=== PATIENT | female | born 1950 | race Caucasian/White ===

== ENCOUNTER 2022-07-24 11:40 | Emergency (ER) | payer MEDICARE, SELFPAY ==
[2022-07-24 12:03] VITALS: BP 151/82; PULSE 65; RESP 18; TEMP 36.6; O2SAT 99
--- NOTE | 2022-07-24 12:21 | ED.URI ---
HPI - URI/Sore Throat General Chief Complaint: Upper Respiratory Infection Stated Complaint: throat irritation Time Seen by Provider: 07/24/22 12:05 Source: patient Mode of arrival: ambulatory Limitations: no limitations History of Present Illness HPI Narrative: Sara is a 72-year-old female patient presenting to the clinic today with complaints of sore throat x1 week. She reports that her throat feels irritated and she is constantly feeling itchiness scratch in the back of her throat. She denies any known fever chills. MD elicited complaint: sore throat and nasal congestion Related Data Home Medications Medication Instructions Recorded Confirmed ezetimibe 10 mg tablet 10 mg DIRECTED 07/24/22 07/24/22 furosemide 20 mg tablet 20 mg DIRECTED 07/24/22 07/24/22 latanoprost 0.005 % eye drops 1 drp DIRECTED 07/24/22 07/24/22 lisinopril 40 mg tablet 40 mg DIRECTED 07/24/22 07/24/22 loteprednol etabonate 0.5 % eye 1 drp DIRECTED 07/24/22 07/24/22 gel drops metoprolol succinate 100 mg 100 mg PO DIRECTED 07/24/22 07/24/22 tablet,extended release 24 hr metronidazole 0.75 % topical cream 1 applic topical DIRECTED 07/24/22 07/24/22 pantoprazole 40 mg tablet,delayed 40 mg PO DIRECTED 07/24/22 07/24/22 release Allergies Allergy/AdvReac Type Severity Reaction Status Date / Time etodolac Allergy Hives Verified 07/24/22 12:34 Sulfa (Sulfonamide Allergy Rash Verified 07/24/22 12:34 Antibiotics) Review of Systems Review of Systems: Pertinent positives per HPI. Patient denies any fever, chills, rash, headache, visual changes, dizziness, cough, shortness of breath, chest pain, palpitations, nausea, vomiting, diarrhea, constipation, abdominal pain, or any urinary issues. PMFSH Comments At the time of my signature, I reviewed and agree with the nursing past medical, surgical, social, and family history. There is no relevant family history pertinent to the patient complaint. Exam Narrative: General: Well-developed, well nourished, in no apparent distress Head: Normocephalic, atraumatic Eyes: Pupils equally round and reactive to light bilaterally, EOM intact, sclera and conjunctive clear, no discharge, lids normal Ears: TMs intact and clear, ear canals clear, no drainage, grossly hearing normal. Nose: Nares patent, no discharge, no inflammation, no sinus tenderness. Mouth: Oral pharynx without lesions or masses, good dentition, MMM. Oropharynx red with uvula swelling Neck: Supple, trachea midline, no enlargement of anterior or posterior cervical nodes, no thyroid masses or goiter palpable. Cardio: Regular rate and rhythm, s1 and s2 normal, no murmur appreciated. Resp: Clear to auscultation bilaterally, no rhonchi, rales, wheezing or rubs Course Course Emergency Course: Portions of this record may have been created with voice recognition software. Level of Care: Express Care Visit Vital Signs Vital signs: Vital Signs Temperature 36.6 C 07/24/22 12:03 Pulse Rate 65 07/24/22 12:03 Respiratory Rate 18 07/24/22 12:03 Blood Pressure 151/82 H 07/24/22 12:03 Pulse Oximetry 99 07/24/22 12:03 Oxygen Delivery Room Air 07/24/22 12:03 Temperature 36.6 C 07/24/22 12:03 Pulse Rate 65 07/24/22 12:03 Respiratory Rate 18 07/24/22 12:03 Blood Pressure 151/82 H 07/24/22 12:03 Pulse Oximetry 99 07/24/22 12:03 Oxygen Delivery Room Air 07/24/22 12:03 Vital signs reviewed MDM - URI/Sore Throat MDM Narrative Medical decision making narrative: at the time of visit patient is resting comfortably on the exam table. Strep screen was obtained was negative. We will send for culture. I suspect patient has viral pharyngitis / uvulitis. Supportive measures were discussed with the patient she voiced understanding of discharge instructions and agrees to treatment plan. Prescription for prednisone was sent Differential Diagnosis Differential diagnosis: Likely uppe
== END 2022-07-24 12:31 | disposition home or self-care (01) ==
PROVIDERS: Emergency Provider Nurse Practitioner Family
DX: J02.9 Acute pharyngitis, unspecified (principal); K13.79 Other lesions of oral mucosa; E78.00 Pure hypercholesterolemia, unspecified; I10 Essential (primary) hypertension; K21.9 Gastro-esophageal reflux disease without esophagitis
CPT/HCPCS: 87081; 87880; 99203; G0463

== ENCOUNTER 2024-06-09 07:14 | Outpatient (CLI) | payer MEDICARE, SELFPAY ==
--- NOTE | ~2024-06-09 | MR_ITS ---
EXAMINATION: MR knee RT wo con DATE: 06/09/2024 07:54 INDICATION: Medial right knee pain TECHNIQUE: Magnetic resonance imaging (MRI) of the right knee was performed without intravenous contr ast. Sequences included coronal PD-weighted FSE, coronal PD-weighted FS FSE, sagittal T2-weighted FS E, sagittal PD-weighted FS FSE and axial PD weighted fat saturated FSE. COMPARISON: None. FINDINGS: Medial compartment: Medial meniscus is normal. Deep chondral ulceration along the weightbearing medial femoral condyle wh ich involves greater than 50% the cartilage thickness centrally and with scattered chondral surface i rregularity. Cartilage along the medial tibial plateau appears relatively preserved. Lateral compartment: There is a small longitudinal horizontal tear extends into the inferior articular surface at the junc tion of the posterior body of the lateral meniscus. Deep chondral fissuring with underlying cortical irregularity and mild subarticular edema-like signal change at the anterior weightbearing lateral fem oral condyle. Deep chondral ulceration without degenerative subchondral changes at the central weight bearing lateral femoral condyle. Additional deep chondral fissuring with mild subarticular edema-like signal change at the central to medial aspect of the lateral tibial plateau. Patellofemoral compartment: There is extensive full thickness chondral ulceration with underlying cortical remodeling with scatte red subarticular cystlike changes along the lateral patellar facet, apical ridge and lateral trochlea . Partial-thickness cartilage loss with generally smooth chondral surface along the medial trochlea. There small central subchondral osteophytes at the central aspect of the medial trochlea. Less severe partial thickness cartilage loss with deep fissuring and some underlying cortical irregularity at th e medial patellar facet. Ligaments and tendons: Anterior cruciate ligament is normal. There is focal thickening and mild increased signal at the cent ral aspect of the posterior cruciate ligament suggesting at least partial thickness tear. There is mi ld thickening and minimal increased signal at the proximal aspect of the medial collateral ligament a nd fibular collateral ligament without surrounding edema consistent with mild scarring related to chr onic sprains. Mild distal quadriceps tendinopathy without tear. The patellar tendon is normal. The vi sualized medial and lateral hamstring tendons as well as the iliotibial band are normal. Fluid: Minimal right knee joint effusion. No loose osteochondral bodies identified. Osseous/other: There is approximately 5 mm lateral patellar subluxation. No fracture or pathologic marrow replacing process. IMPRESSION: 1. Small longitudinal horizontal tear at the posterior body of the lateral meniscus. 2. Thickening and mild increased signal at the central posterior cruciate ligament suggesting at leas t partial tear. Correlate with physical exam to assess for degree of residual functional integrity. 3. Mild scarring suggesting chronic sprains of the proximal medial and fibular collateral ligaments. 4. 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 Reviewed, dictated and finalized at location A. IMPRESSION: 1. Small longitudinal horizontal tear at the posterior body of the lateral meni scus. 2. Thickening and mild increased signal at the central posterior cruciate ligam ent suggesting at least partial tear. Correlate with physical exam to assess fo r degree of residual functional integrity. 3. Mild scarring suggesting chronic sprains of the prox
== END 2024-06-09 07:15 | disposition home or self-care (01) ==
PROVIDERS: PCP Internal Medicine; Visit Provider Internal Medicine
DX: M17.11 Unilateral primary osteoarthritis, right knee (principal)
CPT/HCPCS: 73721

== ENCOUNTER 2024-11-10 12:36 | Outpatient (CLI) | payer MEDICARE, SELFPAY ==
--- OUTSIDE RECORDS SUMMARY | 2024-11-10 14:03 | XMS_ITS | Clinical Summary ---
Author Organization [facility] Address [facility] [place] [address] Care Team Providers Care Brush Or Broom Cutter Name Role Phone Yasmine Caruso Primary Care Provider [phone] Allergies Active Allergy Reactions Criticality Noted Date Comments Etodolac Hives Medium 12/30/2013 Sulfa (Sulfonamide Antibiotics) Rash Medium Medications flaxseed oil 1,000 mg capsule Take 1 capsule (1,000 mg total) by mouth 2 (two) times a day Active fluticasone (FLONASE) 50 mcg/actuation nasal spray Administer 1 spray into each nostril as needed 018 Active furosemide (LASIX) 20 mg tabletIndicatio ns:hypertension Take 1 tablet (20 mg total) by mouth 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 018 Active lisinopril (PRINIVIL,ZESTR IL) 40 mg tablet Take 1 tablet (40 mg total) by mouth 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 [address] (PROTONIX) 40 mg EC tabletIndicatio ns:Treatment of Non-Bleeding Gastric Disorder Take 1 tablet (40 mg total) by mouth nightly 018 Active multivitamin capsule Take 1 capsule by mouth 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 Active acetaminophen (TYLENOL) 500 mg tablet Take 2 tablets (1,000 mg total) by mouth every 6 (six) hours as needed for pain Active hyoscyamine (LEVSIN) 0.125 mg tablet Take 1 tablet (0.125 mg total) by mouth as needed 020 Active aspirin 81 mg enteric coated tablet Take 1 tablet (81 mg total) by mouth every morning Active ezetimibe (ZETIA) 10 mg tablet Take 1 tablet (10 mg total) by mouth every morning 021 Active ropivacaine (NAROPIN) 5 mg/mL (0.5 %) injection 1.6 mL (8 mg total) Active triamcinolone (Kenalog) 10 mg/mL injection Kenalog 10 mg/mL suspension for injection In office injection administered by the provider Active metoprolol XL (TOPROL-XL) 100 mg 24 hr tablet Take 1 tablet (100 mg total) by mouth daily 022 Active dorzolamide-mary oloL (COSOPT) 22.3-6.8 mg/mL ophthalmic solutionIndicat ions:Bilateral ocular hypertension Administer 1 drop into both eyes 2 (two) times a day 120 mL 5 023 Active escitalopram (LEXAPRO) 5 mg tablet Take 1 tablet (5 mg total) by mouth daily 023 Active loteprednol (LOTEMAX) 0.5 % drops,gel Administer 1 drop into both eyes daily 10 mL 1 025 Active brimonidine (ALPHAGAN P) 0.1 % dropsIndication s:Bilateral ocular hypertension Administer 1 drop into both eyes 2 (two) times a day 20 mL 025 Active latanoprost (XALATAN) 0.005 % ophthalmic solutionIndicat ions:OHT (ocular hypertension), bilateral INSTILL 1 DROP INTO BOTH EYES EVERY NIGHT AT BEDTIME 7.5 mL 3 025 Active timolol (TIMOPTIC) 0.5 % ophthalmic solution ADMINISTER 1 DROP INTO BOTH EYES TWICE DAILY 5 mL 11 025 Active ofloxacin (OCUFLOX) 0.3 % ophthalmic solutionIndicat ions:Blephariti s of left upper eyelid, unspecified type instill 2 drops in both eyes every 4 hours for 2 days, then 2 drops 4 times daily on days 3 through 7 10 mL 025 Active brimonidine (ALPHAGAN P) 0.1 % dropsIndication s:Bilateral ocular hypertension Administer 1 drop into the left eye 2 (two) times a day 120 mL 023 2024 Discontinued(R eorder) timolol (TIMOPTIC) 0.5 % ophthalmic solution Administer 1 drop into both eyes 2 (two) times a day 5 mL 11 024 2024 Discontinued latanoprost (XALATAN) 0.005 % ophthalmic solutionIndicat ions:OHT (ocular hypertension), bilateral INSTILL 1 DROP INTO BOTH EYES EVERY NIGHT AT BEDTIME 7.5 mL 3 024 2024 Discontinued Active Problems Problem Noted Date Diagnosed Date Meibomian gland dysfunction (MGD) of upper and lower lids of both eyes 11/10/2023 Assessment & Plan (11/10/2023 10:52 AM CDT): Recommend hot compresses bid. Cataract OD / s/p CE/IOL OD (05/23/21) 01/11/2021 Assessment & Plan (01/03/2022 3:41 PM CDT): stable Assessment & Plan (07/05/2021 3:08 PM INTERNATIONAL SALES REPRESENTATIVE): Month 1.5 Doing well, SR at last visit, Tru shows 2.25D of astigmatism but MRX 0.75D of astigmatism PLAN MRX dispensed today LTX SM BID OD, increase LTX SM QID OS Latanoprost OU at bedtime (qhs) RTC 6 months Assessment & Plan (06/26/2021 9:25 AM CDT): Month 1 Doing well Tru with 2.6D astigmatism- recommend SR PLAN: -SR x 1 today -Restart TD TID x 3 days -cont LTX SM OU BID Latanoprost OU qhs -RTC 1 week for repeat Tru/MRx Assessment & Plan (05/29/2021 9:35 AM CDT): Doing well - D/c TD - hold PF 2nd to IOP of 23 -LTX SM OD QID - continue LTXSM OS BID / Flax bid Latanoprost OU QHS RTC 1mo Assessment & Plan (05/24/2021 1:05 PM CDT): 1day post op Doing well TD QID OD RTC Tues Assessment & Plan (04/17/2021 1:16 PM CDT): Hx Combined cataract righ eye, CRVO Left eye (treated with Dr. Bender) More symptomatic with declining vision, monocular diplopia, difficulty driving/glare Exam with moderate NS and plaque of PSC PLAN: -Discussed option which include new glasses, observation vs. CE/IOL.ADLs significantly impacted, interested in cataract surgery REC: CE/IOL OD Risks, benefits, and alternatives of surgery discussed in detail with patient including but not limited to infection, bleeding, persistent inflammation, pain, diplopia, ptosis, need for further visits and surgeries, need for spectacle or contact lens correction after surgery, possible loss of vision, possible loss of the eye, and risks of anesthesia. The patient understands these risks and wishes to proceed. 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 Bender Assessment & Plan (02/20/2023 1:38 PM CDT): CRVO with h/o ME Macula flat on exam, no cystoid macular edema (CME) on OCT Optic nerve edema 12/07/2020 Assessment & Plan (01/11/2021 12:12 PM CDT): resolved Assessment & Plan (12/07/2020 3:46 PM CDT): Marked optic nerve head edema OS +APD with vague vision complaints x 2 weeks OS. Discuss[address] with Dr. Adkins. No malignancy hx other than scalp cutaneous BCC being managed by outside provider. Routine headaches lately (no new or different POWERS), o/w no other symptoms. Prior CDR noted 0.2 OU. ESR/CRP/CBC ordered today. Will be scheduled with neuro-op in next 1-2 days. Seek care sooner with any changes. 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 Will switch to timolol bid OU and continue brim bid and latanoprost qhs OU. Assessment & Plan (04/08/2023 2:02 PM CDT): IOPs adequate for optic nerve (ON)/visual field (VF), CPM Repeat testing 6-12 mo Assessment & Plan (03/04/2023 1:48 PM CDT): Great intraocular pressure (IOP) response on 3 classes (never rec'd brimonidine). She reports a distant history of rash with sulfa drug, but no problems with eyedrop. Call / discontinue if experiencing any unwanted side effects, rashes, etc. Assessment & Plan (02/20/2023 1:30 PM CDT): Tmax today left eye (OS) (44), reduce to 33 in office with topicals A/c quiet, no NVI or neovascularization of iris (NVA) on gonioscopy. Patient had to call clinic immediately if she experiences any pain redness or blurred vision. Intra-ocular pressure is borderline in the right eye. Recommend starting latanoprost q.h.s. in the right eye to reduce the risk for RVO, pt ed Assessment & Plan (12/07/2020 12:42 PM CDT): IOP 21 OU today Last dilated exam 05/13 c/d 0.2 OU Assessment & Plan (11/09/2020 2:21 PM CDT): Mid - hi 20's OU (off PF) Add Latanoprost OU qhs given restart of LTX SM OU QID RTC IOP check 4wks Superior limbic keratoconjunctivitis 05/25/2019 Assessment & Plan (11/10/2023 10:50 AM CDT): Continue lotemax bid OU. Follows with cornea. Assessment & Plan (04/08/2023 2:01 PM CDT): Limbal thinning both eyes (OU), quiet both eyes (OU), CPM. Assessment & Plan (03/04/2023 1:51 PM CDT): OK to resume lotemax BID. Intraocular pressure (IOP) OK. Assessment & Plan (02/20/2023 1:29 PM CDT): Temporarily stop lotemax due to elevated IOP Assessment & Plan (12/26/2022 4:00 PM CDT): Stable CPM RTC 1 yr Assessment & Plan (07/05/2021 3:08 PM INTERNATIONAL SALES REPRESENTATIVE): With irritation OS, LG uptake of superior conj. Increase LTX QID OS, continue BID OD Assessment & Plan (11/09/2020 2:13 PM CDT): OD >> OS Assessment & Plan (05/25/2019 9:34 AM CDT): OD 3+ SPK Add back prednisolone acetate OD q.i.d. P.r.n. s/p CE/PCIOL OS (05/19/19) 05/13/2019 Overview (05/13/2019): Added automatically from request for surgery [id number] Assessment & Plan (05/29/2021 9:25 AM CDT): jostin Assessment & Plan (03/23/2020 3:44 PM CDT): Jostin CTM Assessment & Plan (10/07/2019 9:45 AM INTERNATIONAL SALES REPRESENTATIVE): Jostin CCM Assessment & Plan (06/24/2019 10:19 AM CDT): POM1 OS Doing well Topography today with minimal astigmatism-no suture removal Updated MRx provided today Mild burning OU Continue PF BID OU Use PF more on days when burning is worse RTC 4 mos Assessment & Plan (05/28/2019 10:25 AM CDT): 9 day s/p CE/PCIOL, OS (05/19/19) IOP now wnl, continues to have slight irritation OS Hot spot test over nasal IOL scratch again negative Today no symptoms of glare Slight irritation most likely secondary to normal healing, trace AC reaction OS Plan: Prednisolone acetate 1gtt QID OS Follow-up: Keep scheduled appointment 06/24/19 Assessment & Plan (05/25/2019 9:33 AM CDT): 6 day s/p CE/PCIOL, OS (05/19/19) IOP now wnl, slight irritation OS Hot spot test over nasal IOL scratch negative Plan: DC TobraDex/start prednisolone acetate OS q.i.d. Lotemax ointment OS q.h.s. Until out DC levobunolol given excellent pressures Follow-up: 1 month as scheduled Assessment & Plan (05/20/2019 9:26 AM CDT): 1 day s/p CE/PCIOL, OS (05/19/19) Good vision Intraocular pressure (IOP) elevated to 48 Max drops (gtts) in the office. Rechecked intraocular pressure (IOP) 32 Scratch (fine/ linear off axis on optic) Discussed with patient-I did explain to look for any of glare/halos starting Adams will recheck on Friday for any symptoms as well as for a hot spot test Plan: Tobradex 1gtt qid, OS Start Levobunolol 1gtt BID OS Follow-up: for post-op week 1 visit Corneal abrasion, left 04/02/2018 Assessment & Plan (06/26/2018 12:15 PM CDT): Continued follicles. Likely related to persistent SLK -cont Vigamox OS BID Assessment & Plan (05/07/2018 4:12 PM CDT): Continued follicles. Likely related to persistent SLK -cont Vigamox OS BID Assessment & Plan (04/09/2018 2:30 PM CDT): Pseudodendrites on last exam. ?related to SLK versus first episode of HZO. -cont Vigamox OS BID H/o chickenpox as child, shingles on right flank 40 years prior. Assessment & Plan (04/02/2018 1:47 PM CDT): First pseudodendrite noticed on examination today. ?related to SLK versus first episode of HZO. H/o chickenpox as child, shingles on right flank 40 years prior. 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 Assessment & Plan (01/03/2022 3:45 PM CDT): 1 filament - removed Allergic conjunctivitis of both eyes 10/31/2015 Assessment & Plan (11/10/2023 10:51 AM CDT): Start Pataday qam OU. Nuclear sclerotic cataract of right eye 10/31/19 16 Assessment & Plan (05/13/2019 10:54 AM CDT): BCVA OS 20/40, BAT 20/60 OS with decreased night vision and problems driving at night Plan: Recommend CEIOL OS Risks, benefits, and alternatives of surgery discussed in detail with patient including but not limited to infection, bleeding, persistent inflammation, pain, diplopia, ptosis, need for further visits and surgeries, need for spectacle or contact lens correction after surgery, possible loss of vision, possible loss of the eye, and risks of anesthesia. The patient understands these risks and wishes to proceed. Junctional melanocytic nevus of skin 04/27/2015 Right ankle pain 12/30/2013 KCS (keratoconjunctivitis sicca) Assessment & Plan (01/03/2022 3:45 PM CDT): Stable CPM RTC 1 yr Assessment & Plan (05/24/2021 1:04 PM CDT): Cont LTX SM OU BID FLAX 1000mg OU qd Assessment & Plan (04/17/2021 1:17 PM CDT): SPE resolved Assessment & Plan (05/13/2019 10:55 AM CDT): Stable Continue present management Assessment & Plan (05/07/2018 4:14 PM CDT): Please see SLK eval / tx Assessment & Plan (04/02/2018 1:50 PM CDT): Vigamox OS BID RTC 1 week Allergic conjunctivitis SLK s/p sup conj resection OS (09/16/18) Assessment & Plan (01/03/2022 3:46 PM CDT): Comfortable despite 2-3+ sup limbal staining Continue LTX BID OU Continue Latanoprost nightly OU RTC 12 months Assessment & Plan (04/17/2021 1:16 PM CDT): quiet Assessment & Plan (03/23/2020 3:39 PM CDT): Today with 2+ superficial punctate keratitis (SPK) superiorly right eye (OD) , Trace left eye (OS) with Lissamine green, symmetrically symptomatic Plan: - continue PF QID OU - given instructions about applying to superior bulbar conjunctiva Assessment & Plan (10/07/2019 10:01 AM INTERNATIONAL SALES REPRESENTATIVE): Today with 4+ SPK superiorly OD, tr SPK superiorly OS with Lissamine green, actually more symptomatic OS Plan: - continue PF QID OU - given instructions about applying to superior bulbar conjunctiva RTC 10 weeks Assessment & Plan (06/24/2019 10:19 AM CDT): Stable Pred Forte to 4 times a day p.r.n. RTC September 2019 Assessment & Plan (05/13/2019 10:46 AM CDT): Healing well, trace staining Redness secondary to sub-conjunctival hemorrhage OS after yoga class, patient re-assured IOP high normal OS, C/D wnl Plan: CCM, lotemax bina qhs OS, Prednisolone QID OS Assessment & Plan (03/09/2019 3:31 PM CDT): 6mos s/p superior conjunctival resection OS for SLK OD 3+ spk superior OS spk at edges of previous resection bed - continue prednisolone 4x/day OS (instruction on direct application to superior limbus given) - discontinue prolensa OS qd secondary to discomfort - continue lotemax ointment QHS OS - RTC 2-3 mos Assessment & Plan (12/29/2018 9:19 AM CDT): 10 wks s/p superior conjunctival resection OS for SLK OD 3+ spk superior OS minimal spk at edges of previous resection bed - Doing well - increase prednisolone 4 to 6x/day OS prn - add prolensa OS qd - continue lotemax ointment QHS OS - RTC 2-3 mos Assessment & Plan (10/27/2018 9:13 AM INTERNATIONAL SALES REPRESENTATIVE): POV 6 weeks s/p superior conjunctival resection OS 09/16/18 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 - Doing well - Decrease prednisolone to QID OS - continue lotemax ointment QHS OS until out RTC 2 months Assessment & Plan (09/22/2018 9:46 AM INTERNATIONAL SALES REPRESENTATIVE): POV week 1 s/p superior conjunctival resection OS 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 - Doing well - stop tobradex QID - increase prednisolone to 6x/day OS - continue lotemax ointment QHS OS - RTC 1 mo Assessment & Plan (09/16/2018 6:19 PM INTERNATIONAL SALES REPRESENTATIVE): POV day 1 s/p superior conjunctival resection OS 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 - Doing well - start tobradex QID alternating with prednisolone QID + lotemax ointment QHS in operative eye. - Reviewed signs/symptoms endophthalmitis, RT/RD; patient to call immediately if any worsening vision, pain, redness, flashes/floaters/curtains - No lifting/bending/swimming. Eye shield while sleeping, protective eyewear during day. - RTC ~1 week Assessment & Plan (07/30/2018 3:07 PM INTERNATIONAL SALES REPRESENTATIVE): No significant improvement on PF hydrocortisone, After carefull discussion w/patient, she only feels the pain and burning when instilling any eye drop. -trial of discontinuation of all eye drops for several weeks to see if resolution of symptoms / DFE (pt to return w/ her CPAP exam). -Schedule conjunctival resection OS Risks, benefits, and alternatives of surgery discussed in detail with patient including but not limited to infection, bleeding, persistent inflammation, pain, diplopia, ptosis, need for further visits and surgeries, need for spectacle or contact lens correction after surgery, possible loss of vision, possible loss of the eye, and risks of anesthesia. The patient understands these risks and wishes to proceed. . Hold off on (PF) hydrocortisone, zaditor and Refresh Assessment & Plan (06/26/2018 12:27 PM CDT): No significant improvement on PF hydrocortisone, though irritative symptoms likely secondary to filament right eye (OD) . Filament removed today Increase (PF) hydrocortisone 6x/day both eyes (OU) zaditor BID OU Refresh PRN (2x-6x/day) OU LMX bina qhs OU Doxy 100 qd P.O. Flax seed oil BID P.O. Plan for follow-up in 4 weeks Assessment & Plan (05/07/2018 4:11 PM CDT): No significant improvement on PF 5x/daily OS. Change Pred Forte to (PF) hydrocortisone TID both eyes (OU) zaditor BID OU Refresh PRN (2x-6x/day) OU LMX bina qhs OU Doxy 100 qd P.O. Flax seed oil BID P.O. Plan for follow-up in 6 weeks Assessment & Plan (04/09/2018 2:29 PM CDT): Not improved on PF 5x/daily OS. For now will CPM given irritation attributable to epi defect OS. pred 5x daily OS (has used OD since 4 days) zaditor BID OU Refresh PRN (2x-6x/day) OU LMX bina qhs OU Doxy 100 qd P.O. Flax seed oil BID P.O. Assessment & Plan (04/02/2018 1:49 PM CDT): Not improved on PF 5x/daily OS. For now will CPM given irritation attributable to epi defect OS. pred 5x daily OS (has used OD since 4 days) zaditor BID OU Refresh PRN (2x-6x/day) OU LMX bina qhs OU Doxy 100 qd P.O. Flax seed oil BID P.O. Resolved Problems Problem Noted Date Diagnosed Date Resolved Date Superior limbic keratoconjunctivitis 05/25/2019 05/25/2019 Lenticular sclerosis 10/31/2015 019 Encounters Date Type Department Care Team Description 11/08/2024 3:00 PM CDT Office Visit [facility] [address] [address] Yue Jansen, SHANTI Blepharitis of left upper eyelid, unspecified type (Primary Dx) 10/13/2024 Telephone [facility] [address] [place] [id number] Marisol Santos, OD Med Refill 10/01/2024 12:30 PM INTERNATIONAL SALES REPRESENTATIVE Procedure visit [facility] [address] [facility] [address], [address] [place] [address] Aj Bender MD Central retinal vein occlusion with macular edema of left eye (HCC) (Primary Dx) 09/28/2024 Telephone [facility] [address] [facility] [address], [address] [place] [address] Aj Bender MD Pre Cert (2024) 08/20/2024 11:15 AM INTERNATIONAL SALES REPRESENTATIVE Office Visit [facility] [address] [facility] [address], [address] [place] [address] Aj Bender MD Central retinal vein occlusion with macular edema of left eye (HCC) (Primary Dx) 08/19/2024 Telephone [facility] [place] [address] Aj Bender MD new symptoms from Last 3 Months Surgical History Surgery Date Site/Laterality Comments COLONOSCOPY 2006, 2017 x2 DILATION AND CURETTAGE OF UTERUS 08/25/2015 - 08/24/2016 SECTION 1977, 1980 MOHS SURGERY 2015, 12/2020 CATARACT EXTRACTION W/ INTRA OCULAR LENS IMPLANT 05/23/2021 Right CATARACT EXTRACTION W/ INTRA OCULAR LENS IMPLANT 05/19/2019 Left Medical History Medical History Date Comments Cataract Allergic conjunctivitis Superior limbic keratoconjunctivitis Corneal abrasion, left KCS (keratoconjunctivitis sicca) GERD (gastroesophageal reflux disease) Cancer (HCC) Rosacea Hypertension Family History Medical History Relation Name Comments Cataracts Father 90y Stroke Mother Anesthesia problems Neg Hx Fuchs' dystrophy Neg Hx Glaucoma Neg Hx Macular degeneration Neg Hx Retinal detachment Neg Hx Relation Name Status Comments Father 90y (Age 90y) HTN Mother (Age 62y) HTN Social History Tobacco Use Types Packs/Day Years Used Date Smoking Tobacco: Never Smokeless Tobacco: Never Alcohol Use Standard Drinks/Week Comments No 0 (1 standard drink = 0.6 oz pur e alcohol) AUDIT-C Answer Date Recorded Frequency of Alcohol Consumption Not on file 05/15/2021 Average Number of Drinks Not on file 021 Q3: How often do you have si x or more drinks on one occasion? Never 05/15/2021 Comments No Sex and Gender Information Value Date Recorded Sex Assigned at Not on file Legal Sex Female 7:44 AM INTERNATIONAL SALES REPRESENTATIVE Gender Identity Female 12/08/2020 10:17 AM CDT Sexual Orientation Not on file Obstetrics History Comments Post menopause Last Filed Vital Signs Vital Sign Reading Time Taken Comments Blood Pressure 118/62 11/08/2024 2:57 PM CDT Pulse 74 11/08/2024 2:57 PM CDT Temperature 36.7 C (98.1 F) 11/08/2024 2:57 PM CDT Respiratory Rate 24 11/08/2024 2:57 PM CDT Oxygen Saturation 96% 11/08/2024 2:57 PM CDT Inhaled Oxygen Concentration - - Weight 88.9 kg (196 lb) 11/08/2024 2:57 PM CDT Height 162.6 cm (5' 4 ) 05/23/2021 11:14 AM CDT Body Mass Index 33.64 05/23/2021 11:14 AM CDT Plan of Treatment Health Maintenance Due Date Last Done Comments Breast Cancer Screening-Mammogram 1952 Colon Cancer Screening-Colonoscopy 1950 Depression Screening 1952 Hepatitis C Screening 1950 Osteoporosis Screening-Bone Density Scan 1952 Hepatitis B Screening 1970 Pneumococcal vaccine 65+ (1 of 1 - PCV) 2002 Well Visit 65+ 2017 Fall Risk Assessment 05/23/2022 05/23/2021 Covid-19 Vaccine (5 - 2023-2 5 season) 2024 11/23/2021, 06/16/2021, 11/10/2020, Additional history exists DTaP/Tdap/Td Vaccine (2 - Td or Tdap) 12/19/2031 12/18/2021 Zoster Vaccine Completed 10/05/2018, 07/07/2018 Influenza Vaccine Completed 05/27/2024, 06/07/2019 Medical Devices Implanted Type Area Documentation Spec Device Identifier Shelf Expiration Date Model / Serial / Lot [employer] [id number].210 Acrysof Iq Natural Stableforce Acrysert 6mm 13mm 1 Piece Foldable - [id number] - [id number] Implanted:Qty: 1 on 05/19/2019 by Juventino Carcamo MD at [facility] Left: Eye [employer] [id number] 11/23/2023 [id number].21 0 / [id number] / 0 [employer] [id number] Acrysof Iq Natural Stableforce Acrysert 6mm 13mm 1 Piece Foldable - [id number] - [id number] Implanted:Qty: 1 on 05/23/2021 by Juventino Carcamo MD at [facility] L[facility] Right: Eye [employer] [id number] 11/25/2025 SN60WF.19 0 / [id number] / 0 Procedures Procedure Name Priority Date/Time Associated Diagnosis Comments INTRAVITREAL INJECTION, PHARMACOLOGIC AGENT - OS - LEFT EYE Routine 10/01/2024 4:08 PM INTERNATIONAL SALES REPRESENTATIVE Central retinal vein occlusion with macular edema of left eye (HCC) OCT, RETINA - OU - BOTH EYES Routine 10/01/2024 4:08 PM INTERNATIONAL SALES REPRESENTATIVE Central retinal vein occlusion with macular edema of left eye (HCC) INTRAVITREAL INJECTION, PHARMACOLOGIC AGENT - OS - LEFT EYE Routine 08/20/2024 1:32 PM INTERNATIONAL SALES REPRESENTATIVE Central retinal vein occlusion with macular edema of left eye (HCC) OCT, RETINA - OU - BOTH EYES Routine 08/20/2024 12:26 PM INTERNATIONAL SALES REPRESENTATIVE Central retinal vein occlusion with macular edema of left eye (HCC) from Last 3 Months Results * Intravitreal Injection, Pharmacologic Agent - OS - Left Eye (10/01/2024 4:08 PM INTERNATIONAL SALES REPRESENTATIVE) Anatomical Region Laterality Modality Head Other Narrative 10/01/2024 4:08 PM INTERNATIONAL SALES REPRESENTATIVE Time Out Informed consent was obtained after all risks, benefits and alternatives were explained to the patient. The patient understood, agreed and wished to proceed. Timeout was completed verifying the patient, procedure, laterality and allergies. Anesthesia Subconjunctival anesthesia was used. Anesthetic medications included Lidocaine 2%. The manufacture of the medication is [employer]. Intravitreal Injection, Pharmacologic Agent Preparation included 5% betadine to ocular surface. A 30 gauge needle was used. Pharmaceutical Medication: 2 mg aflibercept syringe 2 mg/0.05 mL Route: intravitreal, Site: Left Eye ND: [id number], Lot: [id number], Expiration date: 01/22/2026, Waste: 0 mL The medication administered today was not supplied by the patient or insurance. The medication administered today was not a sample. Post-op Post injection exam found visual acuity is at least hand motion. there were no complications during today's treatment. The patient received written and verbal post procedure care education. Post injection medications were not given. The attending physician was present for the entire procedure. Notes Consented patient for BEAN OS 08/20/2024.iM us Aj Bender MD OPHTH CLINIC PROCEDURES Fi nal Result * OCT, Retina - OU - Both Eyes (10/01/2024 4:08 PM INTERNATIONAL SALES REPRESENTATIVE) Anatomical Region Laterality Modality Head Optical Coherenc e Tomography Narrative 10/01/2024 4:08 PM INTERNATIONAL SALES REPRESENTATIVE Right Eye Quality was good. Scan locations included subfoveal. Progression has no prior data. Left Eye Quality was good. Scan locations included subfoveal. Progression has no prior data. Notes OD: no CME OS: CME+ Aj Bender MD OPHTH TOMOGRAPHY Final Res ult * Intravitreal Injection, Pharmacologic Agent - OS - Left Eye (08/20/2024 1:32 PM INTERNATIONAL SALES REPRESENTATIVE) Anatomical Region Laterality Modality Head Other Narrative 08/20/2024 1:32 PM INTERNATIONAL SALES REPRESENTATIVE Time Out Informed consent was obtained after all risks, benefits and alternatives were explained to the patient. The patient understood, agreed and wished to proceed. Timeout was completed verifying the patient, procedure, laterality and allergies. Anesthesia Subconjunctival anesthesia was used. Anesthetic medications included Lidocaine 2%. The manufacture of the medication is [employer]. Intravitreal Injection, Pharmacologic Agent Preparation included 5% betadine to ocular surface. A 30 gauge needle was used. Pharmaceutical Medication: 2 mg aflibercept syringe 2 mg/0.05 mL Route: intravitreal, Site: Left Eye NDC: 81666-256-25, Lot: [id number], Expiration date: 05/24/2025, Waste: 0 mL The medication administered today was not supplied by the patient or insurance. The medication administered today was a sample. Post-op Post injection exam found visual acuity is at least hand motion. there were no complications during today's treatment. The patient received written and verbal post procedure care education. Post injection medications were not given. The attending physician was present for the entire procedure. Notes Consented patient for BEAN OS 08/20/2024.iM SAMPLE USED TODAY. Eylea paperwork filled out.iM. Aj Bender MD OPHTH CLINIC PROCEDURES Fi nal Result * OCT, Retina - OU - Both Eyes (08/20/2024 12:26 PM INTERNATIONAL SALES REPRESENTATIVE) Anatomical Region Laterality Modality Head Optical Coherenc e Tomography Narrative 08/20/2024 12:26 PM INTERNATIONAL SALES REPRESENTATIVE Right Eye Quality was good. Scan locations included subfoveal. Progression has no prior data. Left Eye Quality was good. Scan locations included subfoveal. Progression has no prior data. Notes OD: no CME OS: CME+ Aj Bender MD OPHTH TOMOGRAPHY Final Res ult from Last 3 Months Insurance MEDICARE SOLUTIONS GENERIC COPAY ASSIST [id number] [id number] MEDICARE SOLUTIONS MEDICARE [employer] Care Teams Brush Or Broom Cutter Relationship Specialty Start Date End Date Yasmine Caruso DO [address] [facility] [address] [place] [address] PCP - General Internal Medicine 04/13/21
--- OUTSIDE RECORDS SUMMARY | 2024-11-10 14:03 | XMS_ITS | CONTINUITY OF CARE DOCUMENT ---
Author Name nathaly andersen Address Unknown Organization [facility] Address [address] [facility] [address] [facility] [address] [place] [address] Phone [phone] Care Team Providers Care Legal Researcher Name Role Phone Juan F MOJICA, Suri Unavailable PATTI DO, KAZ Unavailable [phone] PATTI DO, KAZ Unavailable [phone] PROBLEMS Condition Status Date Provider Notes Dizziness active Jhon Salas INSURANCE PROVIDERS Payer name Policy type / Coverage type Chrisney red republican ID UHC GRP MEDICARE ADVANTAGE PLAN (PPO) Medicare [id number] TREATMENT PLAN Date Name Stress Echo HISTORY OF PROCEDURES Procedure Date Procedure Name Provider Procedure Notes S stephanie Mobile Cardiac Telem etry - Tech Omar Martinez MD completed Mobile Cardiac Telem etry - Prof Omar Martinez MD completed
--- OUTSIDE RECORDS SUMMARY | 2024-11-10 14:03 | XMS_ITS | Clinical Summary ---
Author Organization [facility] Address [address] [address] Care Team Providers Care Olive Brine Tester Name Role Phone Yasmine Caruso DO Primary Care Provider [phone] Allergies Active Allergy Reactions Criticality Noted Date Comments Shellfish Containing Products Unknown 2013 Medications lisinopriL (PRINIVIL) 20 mg tablet Take 20 mg by mouth daily. Active hydroCHLOROthiaz sathya 50 mg tablet Take 50 mg by mouth daily. Active escitalopram oxalate (LEXAPRO) 20 mg tablet Take 20 mg by mouth daily. Active Active Problems No known active problems Encounters Date Type Department Care Team Description 10/28/2024 12:50 PM WEIGHER AND GRADER Ancillary Procedure [address] [id number] Zena Smiley, MEDICAL OFFICE SUPERVISOR Cough, unspecified 10/28/2024 Ancillary Procedure [facility] [employer] [address] [place] [address] Zena Smiley, MEDICAL OFFICE SUPERVISOR Cough, unspecified from Last 3 Months Social History Tobacco Use Types Packs/Day Years Used Date Smoking Tobacco: Never Assessed Comments Unknown Sex and Gender Information Value Date Recorded Sex Assigned at Not on file Legal Sex Female 3:35 PM CDT Gender Identity Not on file Sexual Orientation Not on file Last Filed Vital Signs Vital Sign Reading Time Taken Comments Blood Pressure 150/68 04/12/2021 3:54 PM CDT Pulse 72 04/12/2021 3:54 PM CDT Temperature 37.2 C (98.9 F) 04/12/2021 3:54 PM CDT Respiratory Rate 16 04/12/2021 3:54 PM CDT Oxygen Saturation 98% 04/12/2021 3:54 PM CDT Inhaled Oxygen Concentration - - Weight 95.3 kg (210 lb) 04/12/2021 3:54 PM CDT Height 162.6 cm (5' 4 ) 04/12/2021 3:54 PM CDT Body Mass Index 36.05 04/12/2021 3:54 PM CDT Plan of Treatment Health Maintenance Due Date Last Done Comments DTAP/TDAP/TD VACCINES (1 - Tdap) 1971 BREAST CANCER SCREENING 1992 COLORECTAL SCREENING 1997 Colorectal Cancer Screening 1997 FIT-DNA Q 3 years 1997 FIT/FOBT Q 1 year 1997 Flex Sig/CT Colonography Q 5 years 1997 ZOSTER VACCINE (1 of 2) 2002 OSTEOPOROSIS SCREENING 2017 COVID-19 Vaccine ( season) 2024 06/16/2021, 11/10/2020, 10/13/2020 RSV VACCINE (60+ or ) (1 - 1-dose 75+ series) 2027 PNEUMOCOCCAL VACCINE 50+ YEARS Completed 11/12/2021 INFLUENZA VACCINE Completed 05/27/2024 Procedures Procedure Name Priority Date/Time Associated Diagnosis Comments XR CHEST PA AND LATERAL 2 VW Routine 10/28/2024 12:14 PM WEIGHER AND GRADER Cough, unspecified from Last 3 Months Results * XR CHEST PA AND LATERAL 2 VW (10/28/2024 12:14 PM WEIGHER AND GRADER) Anatomical Region Laterality Modality Chest Computed Radiogr aphy 10/28/2024 12:1 4 PM WEIGHER AND GRADER Impressions 10/28/2024 12:26 PM WEIGHER AND GRADER IMPRESSION: NO ACTIVE DISEASE. Narrative 10/28/2024 12:26 PM WEIGHER AND GRADER EXAM: XR CHEST PA AND LATERAL 2 VW DATE: 10/28/2024 12:24 PM HISTORY: Cough, unspecified COMPARISON: None FINDINGS: The cardiomediastinal silhouette is normal. Pulmonary vascularity is normal. Lungs are clear. Procedure Note Verenice Dweyr MD - 10/28/2024 EXAM: XR CHEST PA AND LATERAL 2 VW DATE: 10/28/2024 12:24 PM HISTORY: Cough, unspecified COMPARISON: None FINDINGS: The cardiomediastinal silhouette is normal. Pulmonary vascularity is normal. Lungs are clear. IMPRESSION: NO ACTIVE DISEASE. us Zena Mikayla Smiley MEDICAL OFFICE SUPERVISOR DIAGNOSTIC IMAGING ORDERABLE S Final Result from Last 3 Months Insurance [id number] Care Teams Olive Brine Tester Relationship Specialty Start Date End Date Yasmine Caruso DO [address] [place] [address] PCP - General 04/12/21
--- OUTSIDE RECORDS SUMMARY | 2024-11-10 14:03 | XMS_ITS | Encounter Summary ---
Author Organization [facility] Address [address] [place] [address] Care Team Providers Care Veterinary Meat Inspector Name Role Phone Du Small MD Primary Care Provider Encounter Details Date Type Department Care Team (Late st Contact Info) Description 02/17/2014 Therapy Visit [facility] [id number] [place] [address] Russell Marte MD [address] [place] [phone] Social History Tobacco Use Types Packs/Day Years Used Date Smoking Tobacco: Never Alcohol Use Standard Drinks/Week Comments Yes 0 (1 standard drink = 0.6 oz pur e alcohol) Sex and Gender Information Value Date Recorded Sex Assigned at Not on file Gender Identity Not on file Sexual Orientation Not on file documented as of this encounter Plan of Treatment Not on file documented as of this encounter Visit Diagnoses Not on filedocumented in this encounter Care Teams Veterinary Meat Inspector Relationship Specialty Start Date End Date Du Small MD PCP - General Internal Medicine 12/30/13 documented as of this encounter
--- OUTSIDE RECORDS SUMMARY | 2024-11-10 14:03 | XMS_ITS | Referral Summary ---
Author Organization [facility] Address [address] [place] [address] Care Team Providers Care Chief Architect Name Role Phone Yasmine Caruso Primary Care Provider [phone] Encounters Date Type Department Care Team Description 11/08/2024 3:00 PM CDT Office Visit [facility] Medical [facility] Care at [address] [address] Yue Jansen, SHANTI Blepharitis of left upper eyelid, unspecified type (Primary Dx) 10/13/[address] [facility] [address] [place] [address] Marisol Santos, OD Med Refill 10/01/2024 12:30 PM PULP TESTER Procedure visit [facility] [address] [place] [address], [address] [place] [phone] Aj Bender MD Central retinal vein occlusion with macular edema of left eye (HCC) (Primary Dx) 09/28/[address] [facility] [address], [address] [place] [phone] Aj Bender MD Pre Cert (2024) 08/20/2024 11:15 AM PULP TESTER Office Visit [facility] [address], [address] [address] Aj Bender MD Central retinal vein occlusion with macular edema of left eye (HCC) (Primary Dx) 08/19/[address] [facility] [place] [address] Aj Bender MD new symptoms from Last 3 Months Allergies Active Allergy Reactions Criticality Noted Date Comments Etodolac Hives Medium 12/30/2013 Sulfa (Sulfonamide Antibiotics) Rash Medium Medications flaxseed oil 1,000 mg capsule Take 1 capsule (1,000 mg total) by mouth 2 (two) times a day Active fluticasone (FLONASE) 50 mcg/actuation nasal spray Administer 1 spray into each nostril as needed Active furosemide (LASIX) 20 mg tabletIndicatio ns:hypertension Take 1 tablet (20 mg total) by mouth screwdown operator before breakfast Active lisinopril (PRINIVIL,ZESTR IL) 40 mg tablet Take 1 tablet (40 mg total) by mouth screwdown operator before breakfast Active pantoprazole DR (PROTONIX) 40 mg EC tabletIndicatio ns:Treatment of Non-Bleeding Gastric Disorder Take 1 tablet (40 mg total) by mouth nightly 018 Active multivitamin capsule Take 1 capsule by mouth screwdown operator before breakfast Active acetaminophen (TYLENOL) 500 mg tablet Take 2 tablets (1,000 mg total) by mouth every 6 (six) hours as needed for pain Active hyoscyamine (LEVSIN) 0.125 mg tablet Take 1 tablet (0.125 mg total) by mouth as needed Active aspirin 81 mg enteric coated tablet [...] 2 (two) times a day 120 mL 02/21/ 023 2024 Discontinued(R eorder) timolol (TIMOPTIC) 0.5 [...] stable Assessment & Plan (07/05/2021 3:08 PM PULP TESTER): Month 1.5 Doing well, SR at last [...] yr Assessment & Plan (07/05/2021 3:08 PM PULP TESTER): With irritation OS, LG uptake of superior conj. Increase LTX QID OS, continue BID OD Assessment & Plan (11/09/2020 2:13 PM CDT): OD >> OS Assessment & Plan (05/25/2019 9:34 AM CDT): OD 3+ SPK Add back prednisolone acetate OD q.i.d. P.r.n. s/p CE/PCIOL OS (05/19/19) 05/13/2019 Overview (05/13/2019): Added automatically from request for surgery [id number] Assessment & Plan (05/29/2021 9:25 AM CDT): stable Assessment & Plan (03/23/2020 3:44 PM CDT): Jostin CTM Assessment & Plan (10/07/2019 9:45 AM PULP TESTER): Jostin, CCM Assessment & Plan (06/24/2019 10:19 AM [...] to look for any of glare/halos starting Friday will recheck on Friday for any symptoms as well as for a hot spot test Plan: Tobradex 1gtt qid, OS Start Levobunolol 1gtt BID OS Follow-up: [facility] for post-op week 1 visit Corneal abrasion, [...] Plan (05/07/2018 4:14 PM CDT): Please see JOVANK eval / tx Assessment & Plan (04/02/2018 [...] conjunctiva Assessment & Plan (10/07/2019 10:01 AM PULP TESTER): Today with 4+ SPK superiorly OD, tr [...] mos Assessment & Plan (10/27/2018 9:13 AM PULP TESTER): POV 6 weeks s/p superior conjunctival resection OS 09/16/18 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 - Doing well - stop tobradex QID - increase prednisolone to 6x/day OS - continue lotemax ointment QHS OS - RTC 1 mo Assessment & Plan (09/16/2018 6:19 PM PULP TESTER): POV day 1 s/p superior conjunctival resection [...] week Assessment & Plan (07/30/2018 3:07 PM PULP TESTER): No significant improvement on PF hydrocortisone, After [...] BID OU Refresh PRN (2x-6x/day) OU LMX ibna qhs OU Doxy 100 qd P.O. Flax [...] keratoconjunctivitis 05/25/2019 05/25/2019 Lenticular sclerosis 10/31/2015 019 Social History Tobacco Use Types Packs/Day Years [...] on file Legal Sex Female 7:44 AM PULP TESTER Gender Identity Female 12/08/2020 10:17 AM CDT Sexual Orientation Not on file Last Filed [...] 05/23/2021 11:14 AM CDT Plan of Treatment Not on file Medical Devices Implanted Type Area Molten Iron Pourer Device Identifier Shelf Expiration Date Model / Serial / Lot [employer] [id number].210 Acrysof Iq Natural Stableforce Acrysert 6mm 13mm 1 Piece Foldable - [id number] - [id number] Implanted:Qty: 1 on 05/19/2019 by Juventino Carcamo MD at [facility] Lens Left: Eye [employer] [id number] 11/23/2023 SN60WF.21 0 / [id number] / 0 [employer] [id number].190 Acrysof Iq Natural Stableforce Acrysert 6mm 13mm 1 Piece Foldable - [id number] - [id number] Implanted:Qty: 1 on 05/23/2021 by Juventino Carcamo MD at [facility] Lens Right: Eye [employer] [id number] 11/25/2025 SN60WF.19 0 / [id number] / 0 Procedures Procedure Name Priority Date/Time Associated Diagnosis Comments INTRAVITREAL INJECTION, PHARMACOLOGIC AGENT - OS - LEFT EYE Routine 10/01/2024 4:08 PM PULP TESTER Central retinal vein occlusion with macular edema of left eye (HCC) OCT, RETINA - OU - BOTH EYES Routine 10/01/2024 4:08 PM PULP TESTER Central retinal vein occlusion with macular edema of left eye (HCC) INTRAVITREAL INJECTION, PHARMACOLOGIC AGENT - OS - LEFT EYE Routine 08/20/2024 1:32 PM PULP TESTER Central retinal vein occlusion with macular edema of left eye (HCC) OCT, RETINA - OU - BOTH EYES Routine 08/20/2024 12:26 PM PULP TESTER Central retinal vein occlusion with macular edema of left eye (HCC) from Last 3 Months Results * Intravitreal Injection, Pharmacologic Agent - OS - Left Eye (10/01/2024 4:08 PM PULP TESTER) Anatomical Region Laterality Modality Head Other Narrative 10/01/2024 4:08 PM PULP TESTER Time Out Informed consent was obtained after all risks, benefits and alternatives were explained to the patient. The patient understood, agreed and wished to proceed. Timeout was completed verifying the patient, procedure, laterality and allergies. Anesthesia Subconjunctival anesthesia was used. Anesthetic medications included Lidocaine 2%. The manufacture of the medication is [employer]. Intravitreal Injection, Pharmacologic Agent Preparation included 5% betadine to ocular surface. A 30 gauge needle was used. Pharmaceutical Medication: 2 mg aflibercept syringe 2 mg/0.05 mL Route: intravitreal, Site: Left Eye [facility]: 08422-940-25, Lot: [id number], Expiration date: 01/22/2026, Waste: 0 mL The [...] Notes Consented patient for BEAN OS 08/20/2024.iM Aj Bender MD OPHTH CLINIC PROCEDURES Fi nal Result * OCT, Retina - OU - Both Eyes (10/01/2024 4:08 PM PULP TESTER) Anatomical Region Laterality Modality Head Optical Coherenc e Tomography Narrative 10/01/2024 4:08 PM PULP TESTER Right Eye Quality was good. Scan locations included subfoveal. Progression has no prior data. Left Eye Quality was good. Scan locations included subfoveal. Progression has no prior data. Notes OD: no CME OS: CME+ Aj Bender MD OPHTH TOMOGRAPHY Final Res ult * Intravitreal Injection, Pharmacologic Agent - OS - Left Eye (08/20/2024 1:32 PM PULP TESTER) Anatomical Region Laterality Modality Head Other Narrative 08/20/2024 1:32 PM PULP TESTER Time Out Informed consent was obtained after all risks, benefits and alternatives were explained to the patient. The patient understood, agreed and wished to proceed. Timeout was completed verifying the patient, procedure, laterality and allergies. Anesthesia Subconjunctival anesthesia was used. Anesthetic medications included Lidocaine 2%. The manufacture of the medication is [employer]. Intravitreal Injection, Pharmacologic Agent Preparation included 5% betadine to ocular surface. A 30 gauge needle was used. Pharmaceutical Medication: 2 mg aflibercept syringe 2 mg/0.05 mL Route: intravitreal, Site: Left Eye [facility]: 19856-381-58, Lot: [id number], Expiration date: 05/24/2025, Waste: 0 mL The [...] OU - Both Eyes (08/20/2024 12:26 PM PULP TESTER) Anatomical Region Laterality Modality Head Optical Coherenc e Tomography Narrative 08/20/2024 12:26 PM PULP TESTER Right Eye Quality was good. Scan locations included subfoveal. Progression has no prior data. Left Eye Quality was good. Scan locations included subfoveal. Progression has no prior data. Notes OD: no CME OS: CME+ Aj Bender MD OPHTH TOMOGRAPHY Final Res ult from Last 3 Months Insurance MEDICARE SOLUTIONS Member Subscriber Plan / Payer (Ef fective 2017-Present) Name:Sara Moody Relation to Subscriber:Self Name:Sara Moody Payer ID:[id number] (NAIC) Type:[facility] MEDICARE Address: [place] [phone] GENERIC COPAY ASSIST [address] [address] MEDICARE SOLUTIONS [address] [id number] MEDICARE SOLUTIONS Care Teams Chief Architect Relationship Specialty Start Date End Date Yasmine Caruso DO [address] [address] PCP - General Internal Medicine 04/13/21
--- OUTSIDE RECORDS SUMMARY | 2024-11-10 14:03 | XMS_ITS | Clinical Summary ---
Author Organization [facility] Address [address] [place] [address] Care Team Providers Care Furnace Attendant Name Role Phone Du Small MD Primary Care Provider [phone] Source Comments [facility]Counts [facility] and [facility] Practices is amultiple site organization consisting of ambulatory clinics and hospital sitesin [place], [place] and [place]. This disclosure is being madepursuant to the Care Everywhere program and may not contain all information available regarding this patient. Last updated 18.[facility] Allergies Active Allergy Reactions Criticality Noted Date Comments Etodolac 12/30/2013 Sulfa Drugs 12/30/2013 Medications * Be aware that medications may not be up to date on this document. Alwaysverify current medications with the patient. Medication Sig Dispensed Refills Start Date End Date Status lisinopril (PRINIVIL; ZESTRIL) 20 MG tablet Take 20 mg by mouth once daily. Active hydrochlorothiazide (HYDRODIURIL) 50 MG tablet Take 50 mg by mouth once daily. Active escitalopram (LEXAPRO) 20 MG tablet Take 20 mg by mouth once daily. Active doxycycline 100 MG 100 mg in 0.9% NaCl 0.9 % 100 mL 100 mg by Intravenous route every 12 hours. Active methylPREDNISolone (MEDROL DOSEPAK) 4 MG tablet Take by mouth as directed 21 Packet 0 08/13/2015 Active traMADol (ULTRAM) 50 MG tablet Take 1 Tab by mouth every 6 hours as needed for Pain 15 Tab 0 08/13/2015 Active Active Problems Problem Noted Date Diagnosed Date Right ankle pain 12/30/2013 Family History Medical History Relation Name Comments Cancer Brother Diabetes Father Hypertension Father Cancer Mother Hypertension Mother Diabetes Paternal Grandfather Relation Name Status Comments Brother Father Mother Paternal Grandfather Social History Tobacco Use Types Packs/Day Years Used Date Smoking Tobacco: Never Alcohol Use Standard Drinks/Week Comments Yes 0 (1 standard drink = 0.6 oz pur e alcohol) occasionally Sex and Gender Information Value Date Recorded Sex Assigned at Not on file Gender Identity Not on file Sexual Orientation Not on file Last Filed Vital Signs Vital Sign Reading Time Taken Comments Blood Pressure 172/95 08/13/2015 11:29 AM ANALYST BUSINESS ANALYSIS Pulse 81 08/13/2015 11:29 AM ANALYST BUSINESS ANALYSIS Temperature 37.3 C (99.2 F) 08/13/2015 11:29 AM ANALYST BUSINESS ANALYSIS Respiratory Rate 18 08/13/2015 11:29 AM ANALYST BUSINESS ANALYSIS Oxygen Saturation 98% 08/13/2015 11:29 AM ANALYST BUSINESS ANALYSIS Inhaled Oxygen Concentration - - Weight 95.3 kg (210 lb) 08/13/2015 11:29 AM ANALYST BUSINESS ANALYSIS Height 162.6 cm (5' 4.02 ) 08/13/2015 11:[address] Body Mass Index 36.03 08/13/2015 11:29 AM ANALYST BUSINESS ANALYSIS Plan of Treatment Health Maintenance Due Date Last Done Comments BONE DENSITY TESTING 1952 COLOGUARD (AGES 45-75) - COL ON CA SCREENING 1952 COLON MONITORING 1952 COLONOSCOPY - COLON CA SCREENING 1952 CT COLONOGRAPHY - COLON CA SCREENING 1950 Colorectal Cancer Screening 1952 FIT - COLON CA SCREENING 1952 FLEX SIG - COLON CA SCREENING 1952 LIPID TESTING 1952 MAMMOGRAM 1952 HEPATITIS C SCREENING 03/11/1970 DTAP/TDAP/TD VACCINES (1 - Tdap) 1971 PNEUMOCOCCAL VACCINE 50+ (1 of 1 - PCV) 2002 ZOSTER VACCINE (1 of 2) 2002 COVID-19 VACCINE ( - 2023-2 5 season) 2024 INFLUENZA VACCINE (#1) 2024 DEPRESSION SCREENING 08/25/2024 Respiratory Syncytial Virus (RSV) Vaccine Pt: or over 60 yrs (1 - 1-dose 75+ series) 2027 HEPATITIS B VACCINE Aged Out No longe r eligible based on patient's age to complete this topic HIB VACCINE Aged Out No longer eligi ble based on patient's age to complete this topic HPV VACCINE Aged Out No longer eligi ble based on patient's age to complete this topic MENINGOCOCCAL (Group B) VACC INE SHARED DECISION-MAKING Aged Out No longer eligibl e based on patient's age to complete this topic MENINGOCOCCAL GROUPS A/C/Y/W VACCINE Aged Out No longer eligible b ased on patient's age to complete this topic Care Teams Furnace Attendant Relationship Specialty Start Date End Date Du Small MD PCP - General Internal Medicine 12/30/13
[2024-11-10 14:09] LABS: Albumin Level 4.6 g/dL (3.5-5.1); Estimated Glomerular Filt Rate 56
== END 2024-11-10 12:37 | disposition home or self-care (01) ==
PROVIDERS: PCP Internal Medicine; Visit Provider Orthopaedic Surgery
DX: M17.11 Unilateral primary osteoarthritis, right knee (principal)
CPT/HCPCS: 36415; 82040; 82565

== ENCOUNTER 2025-01-10 11:01 | Outpatient (CLI) | payer MEDICARE, SELFPAY ==
--- OUTSIDE RECORDS SUMMARY | 2025-01-10 11:43 | XMS_ITS | Continuity of Care Document ---
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 Role Phone Yasmine Tate DO Unavailable Unavailable Allergies, Adverse Reactions, Alerts Substance Reaction Status Criticality etodolac Rash Active No Information Sulfa (Sulfonamide Antibiotics) Other Active No Information Medications Medication Instructions Dosage Effective Dates (start - stop) Status Comments pantoprazole 40 mg tablet,delayed release take 1 tablet by oral route every day 40 MG - Active meloxicam 7.5 mg tablet take 1 tablet by oral route every day 7.5 MG - Active Dr Tate prednisone 20 mg tablet take 2 tablet by oral route every day 40 MG - Active dr tate albuterol sulfate HFA 90 mcg/actuation aerosol inhaler inhale 2 puff by inhalation route every 4 hours as needed 2 puff - Active Dr Tate metoprolol succinate ER 50 mg tablet,extended release 24 hr take 1 tablet by oral route every day 50 MG - Active EZETIMIBE 10 MG TABLET TAKE 1 TABLET BY MOUTH EVERY DAY - Active Lisinopril 40 MG Oral Tablet TAKE 1 TABLET BY MOUTH DAILY - Active celecoxib 100 mg capsule take 1 capsule by oral route 2 times every day as needed for knee pain 100 MG - Active furosemide 20 mg tablet TAKE 2 TABLETS BY MOUTH EVERY DAY - Active aspirin 81 mg tablet,delayed release take 1 tablet by oral route every day 81 MG - Active timolol maleate 0.5 % eye drops instill 1 drop by ophthalmic route 2 times every day into affected eye(s) 1.00 drop - Active Lotemax 0.5 % eye drops,suspension instill 1 drop by ophthalmic route 2 times every day into affected eye(s) 1 drop - Active latanoprost 0.005 % eye drops instill 1 drop by ophthalmic route every day into affected eye(s) in the evening 1.00 drop - Active pantoprazole 40 mg tablet,delayed release take 1 tablet by oral route every day 40 MG - No Longer Active Please call pt when ready Procedures Procedure Date OFFICE [id number] BODY MASS INDEX DOCD SYST BP GE 130 - 139MM HG DIAST BP < 80 MM HG CBC, INC PLATELETS AND DIFFERENTIAL COMPREHEN METABOLIC PANEL CMP THYROID STIMULATION HORMONE(TSH) 2024 ROUTINE VENIPUNCTURE EKG (ELECTROCARDIOGRAM) OFFICE [id number] BODY MASS INDEX DOCD SYST BP LT 130 MM HG DIAST BP 80-89 MM HG BASIC METABOLIC PANEL(BMP) CBC, INC PLATELETS, NO DIFFERENTIAL LIPID PANEL MAGNESIUM (MG), SERUM ROUTINE VENIPUNCTURE BODY MASS INDEX DOCD SYST BP GE 130 - 139MM HG DIAST BP 80-89 MM HG OFFICE [id number] Admin influenza virus vac FLU VACC PRSV FREE INC ANTIG KENALOG 10 MG ASP/INJ MAJOR JOINTOR BURSA, SHOULDER, H IP,KNEE W/O US GUIDANCE OFFICE [id number] BODY MASS INDEX DOCD SYST BP LT 130 MM HG DIAST BP < 80 MM HG Pt inelig neg scrn depres OFFICE [id number] BODY MASS INDEX DOCD SYST BP GE 130 - 139MM HG DIAST BP < 80 MM HG FALL RISK ASSESSMENT DOC'D PRES/ABSN URINE INCON ASSESS Pt inelig neg scrn depres BASIC METABOLIC PANEL(BMP) CBC, INC PLATELETS, NO DIFFERENTIAL LIPID PANEL THYROID STIMULATION HORMONE(TSH) 2023 VITAMIN D, 25-HYDROXY ROUTINE VENIPUNCTURE PPPS, subseq visit BODY MASS INDEX DOCD SYST BP LT 130 MM HG DIAST BP < 80 MM HG BASIC METABOLIC PANEL(BMP) ROUTINE VENIPUNCTURE OFFICE [id number] BODY MASS INDEX DOCD SYST BP LT 130 MM HG DIAST BP < 80 MM HG FALL RISK ASSESSMENT DOC'D PRES/ABSN URINE INCON ASSESS CBC, INC PLATELETS, NO DIFFERENTIAL COMPREHEN METABOLIC PANEL CMP LIPID PANEL THYROID STIMULATION HORMONE(TSH) 2022 VITAMIN D, 25-HYDROXY ROUTINE VENIPUNCTURE Clin depression screen doc PPPS, subseq visit BODY MASS INDEX DOCD SYST BP LT 130 MM HG DIAST BP < 80 MM HG COLONOSCOPY AND BIOPSY Anival-26-2023 TISSUE EXAM BY PATHOLOGIST Pt inelig neg scrn depres Admin influenza virus vac FLU VACC PRSV FREE INC ANTIG BASIC METABOLIC PANEL(BMP) CBC, INC PLATELETS, NO DIFFERENTIAL LIPID PANEL ROUTINE VENIPUNCTURE OFFICE [id number] BODY MASS INDEX DOCD SYST BP LT 130 MM HG DIAST BP < 80 MM HG FALL RISK ASSESSMENT DOC'D PRES/ABSN URINE INCON ASSESS OFFICE [id number] BODY MASS INDEX DOCD SYST BP LT 130 MM HG DIAST BP < 80 MM HG Pneumococcal Conjugate Vaccine (PCV20) M BASIC METABOLIC PANEL(BMP) CBC, INC PLATELETS, NO DIFFERENTIAL LIPID PANEL ROUTINE VENIPUNCTURE OFFICE [id number] BODY MASS INDEX DOCD SYST BP LT 130 MM HG DIAST BP < 80 MM HG PNEUMOVAX ADM MEDICARE LIPID PANEL ROUTINE VENIPUNCTURE OFFICE [id number] BODY MASS INDEX DOCD SYST BP GE 130 - 139MM HG DIAST BP < 80 MM HG Brief Emotional/Behavioral A ssessment, With Scoring/Doct, Per Stndrd Instrument Clin depression screen doc OFFICE [id number]-[id number] BODY MASS INDEX DOCD SYST BP >= 140 MM HG6 IT DIAST BP >= 90 MM HG Admin influenza virus vac FLU VACC PRSV FREE INC ANTIG OFFICE [id number] BODY MASS INDEX DOCD SYST BP LT 130 MM HG DIAST BP 80-89 MM HG OFFICE [id number]-TVP-[id number] BODY MASS INDEX DOCD SYST BP GE 130 - 139MM HG DIAST BP < 80 MM HG FALL RISK ASSESSMENT DOC'D PRES/ABSN URINE INCON ASSESS Pt inelig neg scrn depres BASIC METABOLIC PANEL(BMP) CBC, INC PLATELETS, NO DIFFERENTIAL HEMOGLOBIN A1C HGA1C, GLYCO LIPID PANEL ROUTINE VENIPUNCTURE OFFICE [id number] BODY MASS INDEX DOCD SYST BP LT 130 MM HG DIAST BP < 80 MM HG Pt inelig neg scrn depres BASIC METABOLIC PANEL(BMP) CBC, INC PLATELETS AND DIFFERENTIAL ROUTINE VENIPUNCTURE KENALOG 10 MG ASP/INJ MAJOR JOINTOR BURSA, SHOULDER, H IP,KNEE W/O US GUIDANCE OFFICE [id number] BODY MASS INDEX DOCD SYST BP GE 130 - 139MM HG DIAST BP < 80 MM HG Admin influenza virus vac FLU VACC PRSV FREE INC ANTIG OFFICE [id number] BODY MASS INDEX DOCD SYST BP LT 130 MM HG DIAST BP 80-89 MM HG Pt inelig neg scrn depres FALL RISK ASSESSMENT DOC'D PRES/ABSN URINE INCON ASSESS CBC, INC PLATELETS, NO DIFFERENTIAL COMPREHEN METABOLIC PANEL CMP 0 LIPID PANEL ROUTINE VENIPUNCTURE OFFICE [id number] BODY MASS INDEX DOCD SYST BP LT 130 MM HG DIAST BP < 80 MM HG Pt inelig neg scrn depres BASIC METABOLIC PANEL(BMP) CBC, INC PLATELETS, NO DIFFERENTIAL LIPID PANEL ROUTINE VENIPUNCTURE OFFICE [id number] BODY MASS INDEX DOCD SYST BP LT 130 MM HG DIAST BP 80-89 MM HG Advance Directives Directive Yes / No Effective Date File Name No Information Encounters Encounter Description Practice Location Reason(s) For Visit Diagnoses Date Provider Providers Copied on Encounter [facility], [address], [place], [place], [address] , tel: [phone] [facility] Internal Medicine No Information 5 Patti Underwood. [address], [address], [place], [place], [address], [place]. [phone] OFFICE KXPMI-KBK-YP TAILED [facility], [address], [place], [place], [address] , tel: [phone] [facility] Internal Medicine fu (chief complaint) Cough, unspecified typeAbnormal MRI, kneeEssential (primary) hypertensionMix ed hyperlipidemiaB radycardiaPerso nal history of transient ischemic attack (TIA), and cerebral infarction without residual deficitsGastro- esophageal reflux disease without esophagitis 5 Sherice Freitas. [address], [address], [place], [place], [address], [place]. tel:[phone] Referring Provider: Yasmine Small, [address], [place], [address] . tel:[phone] [facility], [address], [place], [place], [address] , tel:[phone] [facility] Internal Medicine Near syncope 5 Sherice Freitas. [address], [address], [place], [place], [address], . tel:[phone] Referring Provider: Yasmine Small, [address], [place], [address] . tel:[phone] OFFICE POEHQ-CND-GO [facility], [address], [place], [place], [address] , tel: [phone] [facility] Internal Medicine preop (chief complaint) Near syncopeBradycar diaGastro-esoph ageal reflux disease without esophagitisMixe d hyperlipidemiaE ssential (primary) hypertensionAbn ormal MRI, kneeObesity, unspecifiedPers onal history of transient ischemic attack (TIA), and cerebral infarction without residual deficitsPre-op evaluation 5 Sherice Freitas[address], [address], [address], . tel:[phone] Referring Provider: Yasmine Small, [address] [address], [place], [address] . tel:[phone] [facility], [address], [place], [place], [address] , tel: [phone] [facility] Internal Medicine No Information 5 Patti Underwood. [address], [address], [place], [place], [address], . tel:[phone] [facility], [address], [place], [place], [address] , tel: [phone] [facility] Internal Medicine No Information 4 Patti Underwood. [address], [address], [place], [place], [address], [place]. tel:[phone] OFFICE EYEWT-RAM-FY [facility], [address], [place], [place], [address] , tel: [phone] [facility] Internal Medicine Chronic Conditions (chief complaint)P E (chief complaint)M edicare preventive (chief complaint) Body mass index [BMI] 34.0-34.9, adultEssential (primary) hypertensionMix ed hyperlipidemiaG milton-esophagea l reflux disease without esophagitisAdul t general medical examMyalgia, unspecified siteAbnormal MRI, knee Jun- 4 Patti Underwood. [address], [address], [place], [place], [address], [place]. tel:[phone] Referring Provider: Yasmine Small, [address], [place], [address] . tel:[phone] [facility], [address], [place], [place], [address] , [place] tel:[phone] [facility] Internal Medicine Abnormal MRI, knee May-2 4 Patti Underwood. [address], [address], [place], [place], [address], [place]. tel:[phone] [facility], [address], [place], [place], [address] , [place] tel:[phone] [facility] Internal Medicine Right medial knee pain May-0 4 Patti Underwood. [address], [address], [place], [place], [address], [place]. tel:[phone] Referring Provider: Yasmine Small, [address] [facility], [place], [address] . tel:[phone] OFFICE CHJHA-RBI-XF PANDED [facility], [address], [place], [place], [address] , [place] tel:[phone] [facility] Internal Medicine rt knee (chief complaint) Right medial knee pain May-0 3- 4 Smiley Zena. [address], [address], [place], [place], [address], [place]. tel:[phone] Referring Provider: Yasmine Small, [address], [place], [address] . tel:[phone] [facility], [address], [place], [place], [address] , [place] tel:[phone] [facility] Internal Medicine Arthritis of both kneesBack pain, unspecified back location, unspecified back pain laterality, unspecified chronicityBilat eral primary osteoarthritis of hip 4 Patti Underwood. [address], [address], [place], [place], [address], . tel:[phone] [facility], [address], [place], [address] , [place] tel: [phone] [facility] Internal Medicine Leg pain, right 4 Patti Underwood. [address], [address], [place], [place], [address], [place]. tel:[phone] OFFICE IEZCR-FYN-JA PANDED [facility], [address], [place], [place], [address] , tel: [phone] [facility] Internal Medicine acute visit (chief complaint) Leg pain, rightEssential (primary) hypertension 4 [facility]. [address], [address], [place], [place], [address], [place]. tel:[phone] Referring Provider: Yasmine Small, [address], [place], [address] . tel:[phone] [facility], [address], [place], [place], [address] , [place] tel: [phone] [facility] Internal Medicine No Information 4 Patti Underwood. [address], [address], [place], [place], [address], [place]. tel:[phone] [facility], [address], [place], [place], [address] , tel: [phone] [facility] Internal Medicine No Information 4 Patti Underwood. [address], [address], [place], [place], [address], [place]. [phone] [facility], [address], [place], [place], [address] , tel:[phone] [facility] Internal Medicine Chronic Conditions (chief complaint)M edicare preventive (chief complaint)H PI (chief complaint) Body mass index [BMI] 33.0-33.9, adultMixed hyperlipidemiaG milton-esophagea l reflux disease without esophagitisEsse ntial (primary) hypertensionMya lgia, unspecified siteObesity, unspecifiedMajo r depressive disorder, recurrent, unspecifiedAdul t general medical examOther fatigue 4 Patti Underwood. [address], [address], [place], [place], [address], . tel:[phone] Referring Provider: Yasmine Small, [address] [facility] [address], [place], [address] . tel:[phone] [facility], [address], [place], [place], [address] , [phone] [facility] Internal [facility] Tinnitus, bilateral 3 Patti Underwood. [address], [address], [place], [place], [address], [place]. tel:[phone] OFFICE PQIOM-PXS-AY TAILED [facility], [address], [place], [place], [address] , tel:[phone] [facility] Internal [facility] Patient encounter (chief complaint) Essential (primary) hypertensionTin nitus, unspecified lateralityLeft foot pain 3 Sherice Freitas. [address], [address], [place], [place], [address], [place]. tel:[phone] Referring Provider: [address], [place], [address] . tel:[phone] [facility], [address], [place], [place], [address] , [phone] [facility] Internal Medicine Medicare preventive (chief complaint)C hronic Conditions (chief complaint)c hronic conditions (chief complaint) Essential (primary) hypertensionMix ed hyperlipidemiaM ajor depressive disorder, recurrent, unspecifiedGast ro-esophageal reflux disease without esophagitisAdul t general medical examBody mass index [BMI] 33.0-33.9, adult 3 Patti Underwood. [address], [address] [place] [address], [address], . tel:[phone] Referring Provider: [address] [facility], [place], [address] . tel:[phone] [facility] [address] [place] [address], [address] , tel:[phone] [facility] [place] No Information 3 Benjaminecki Eleazardad. [address] [place] [address], [address], . tel:[phone] Referring Provider: [address] [place] [address], [address] . tel:[phone] [facility] [address] [place] [address], [address] , tel:[phone] [facility] No Information 3 Benjaminelviai Eldad. [address] [place] [address], [address], . tel:[phone] Referring Provider: [address] [place] [address], [address] . tel:[phone] OFFICE XFFEB-RPY-DU TAILED [facility] [address] [place] [address], [address] , tel:[phone] [facility] Internal Medicine Chronic Conditions (chief complaint) Essential (primary) hypertensionMix ed hyperlipidemiaM ajor depressive disorder, recurrent, unspecifiedGast ro-esophageal reflux disease without esophagitis 2 Patti Underwood. [address], [address] [facility], [place], [place], [address], [place]. tel:[phone] Referring Provider: [address] [place] [address], [address] . tel:[phone] OFFICE ADPFI-WLA-FG [facility], [address], [place], [place], [address] , [place] tel: [phone] [facility] Internal Medicine Lumbar painEssential (primary) hypertension 2 Geovanny Sandy. [address], [address], [place], [place], [address], [place]. tel:[phone] Referring Provider: [address], [place], [address] . tel:[phone] OFFICE YFLGQ-ICF-RL [facility], [address], [place], [place], [address] , [place] tel:[phone] [facility] Internal Medicine Chronic Conditions (chief complaint) Essential (primary) hypertensionMix ed hyperlipidemiaM ajor depressive disorder, recurrent, unspecifiedGast ro-esophageal reflux disease without esophagitisMyal baljinder, unspecified siteBody mass index [BMI] 34.0-34.9, adult 2 Patti Underwood. [address], [address], [place], [place], [address], [place]. tel:[phone] Referring Provider: [address], [place], [address] . tel:[phone] [facility], [address], [place], [place], [address] , [place] tel:[phone] [facility] Internal Medicine Chronic Conditions (chief complaint) Mixed hyperlipidemiaM ajor depressive disorder, recurrent, unspecifiedEsse ntial (primary) hypertensionBod y mass index [BMI] 34.0-34.9, adult 1 Patti Underwood. [address], [address], [place], [place], [address], [place]. tel:[phone] Referring Provider: [address], [place], [address] . tel:[phone] OFFICE [facility]JRN[facility], [address], [place], [place], [address] , tel: [phone] [facility] Internal Medicine Chronic Conditions (chief complaint) Body mass index [BMI] 34.0-34.9, adultMajor depressive disorder, recurrent, unspecifiedEsse ntial (primary) hypertension Dec-0 1 Patti Underwood. [address], [address], [place], [place], [address], [place]. tel:[phone] Referring Provider: [address] [facility], [place], [address] . tel:[phone] OFFICE [facility]SNUI[facility]SRB[facility], [address], [place], [place], [address] , tel: [phone] [facility] Internal Medicine Chronic Conditions (chief complaint) Major depressive disorder, recurrent, unspecifiedBila teral primary osteoarthritis of hipBody mass index [BMI] 34.0-34.9, adult Oct- 1 Patti Underwood. [address], [address], [place], [place], [address], [place]. tel:[phone] Referring Provider: [address] [facility], [place], [address] . tel:[phone] OFFICE LVKYV[facility]LSK[facility], [address], [place], [place], [address] , tel: [phone] [facility] Internal Medicine Chronic Conditions (chief complaint) Bilateral primary osteoarthritis of hipEssential (primary) hypertensionMaj or depressive disorder, recurrent, unspecifiedBody mass index (BMI) 35.0-35.9, adult Sep-[address], [address], [place], [place], [address], [place]. tel:[phone] Referring Provider: [address], [place], [address] . tel:[phone] OFFICE LMPWL[facility]KHY[facility], [address], [place], [place], [address] , tel:[phone] [facility] Internal Medicine Chronic Conditions (chief complaint) Essential (primary) hypertensionMix ed hyperlipidemiaM yalgia, unspecified siteImpaired glucose tolerancePerson al history of transient ischemic attack (TIA), and cerebral infarction without residual deficitsOther sequelae following unspecified cerebrovascular diseaseBody mass index (BMI) 36.0-36.9, adult 1 Patti Underwood. [address], [address], [place], [place], [address], [place]. tel:[phone] Referring Provider: [address], [place], [address] . tel:[phone] OFFICE AWGCQ-MOU-SZ [facility], [address], [place], [place], [address] , tel:[phone] [facility] Internal Medicine Chronic Conditions (chief complaint) Essential (primary) hypertensionGas tro-esophageal reflux disease without esophagitisPrim aly osteoarthritis, right shoulderBody mass index (BMI) 36.0-36.9, adult 0-202 0 Patti Underwood. [address], [address], [place], [place], [address], [place]. tel:[phone] Referring Provider: [address], [place], [address] . tel:[phone] OFFICE VEPKK-UNB-QI [facility], [address], [place], [place], [address] , tel:[phone] [facility] Internal Medicine Acute (chief complaint) Body mass index (BMI) 36.0-36.9, adultRight shoulder pain, unspecified chronicityLeft shoulder pain, unspecified chronicity 0 Maren Stoll. [address], [address], [place], [place], [address], [place]. tel:[phone] Referring Provider: [address], [place], [address] . tel:[phone] [facility]ICE [facility], [address], [place], [place], [address] , tel: [phone] [facility] Internal [facility] Chronic Conditions (chief complaint) Mixed hyperlipidemiaM yalgia, unspecified siteEssential (primary) hypertensionMaj or depressive disorder, recurrent, unspecifiedGast ro-esophageal reflux disease without esophagitisBody mass index (BMI) 36.0-36.9, adult 0 Patti Underwood. [address], [address], [place], [place], [address], . [phone] Referring Provider: [address], [place], [address] . tel:[phone] OFFICE [facility]ZCG[facility], [address], [place], [place], [address] , tel: [phone] [facility] Internal [facility] Chronic Conditions (chief complaint) Body mass index (BMI) 36.0-36.9, adultMixed hyperlipidemiaE ssential (primary) hypertensionMaj or depressive disorder, recurrent, unspecifiedGast ro-esophageal reflux disease without esophagitisMyal baljinder, unspecified site Patti Underwood. [address], [address], [place], [place], [address], . [phone] Referring Provider: [address], [place], [address] . tel:[phone] [facility], [address], [place], [place], [address] , tel:[phone] [facility] Internal [facility] Chronic Conditions (chief complaint) Body mass index (BMI) 36.0-36.9, adultGastro-eso phageal reflux disease without esophagitisEsse ntial (primary) hypertensionMaj or depressive disorder, recurrent, unspecifiedMixe d hyperlipidemiaO ther specified health statusBilateral primary osteoarthritis of hipScreening for diabetes mellitus Patti Underwood. [address], [address], [place], [place], [address], . tel:[phone] Referring Provider: [address] [facility], [place], [address] . tel:[phone] [facility], [address], [place], [place], [address] , tel: [phone] [facility] Body mass index (BMI) 35.0-35.9, adultEssential (primary) hypertensionMaj or depressive disorder, recurrent, unspecifiedGast ro-esophageal reflux disease without esophagitisOthe r specified health statusCaregiver stress 2-201 8 Patti Underwood. [address], [address] [facility], [place], [place], [address], . tel:[phone] Referring Provider: [address] [facility], [place], [address] . tel:[phone] [facility], [address], [place], [place], [address] , tel: [phone] [facility] Essential (primary) hypertension Sep-1 8-201 8 Stensjody Dodie. [address], Suite [facility], [place], [place], [address], . tel:[phone] Referring Provider: [address] [facility], [place], [address] . tel:[phone] [facility], [address], [place], [place], [address] , tel: [phone] [facility] Essential (primary) hypertension Sep-0 4-201 8 Stensland Dodie. [address], [address] [facility], [place], [place], [address], . tel:[phone] Referring Provider: [address] [facility], [place], [address] . tel:[phone] [facility], [address], [place], [place], [address] , tel: [phone] [facility] Essential (primary) hypertension 8 Sherice Freitas. [address], [address], [place], [place], [address], [place]. tel:[phone] Referring Provider: [address], [place], [address] . tel:[phone] [facility], [address], [place], [place], [address] , tel: [phone] [facility] Essential (primary) hypertension Sherice Freitas. [address], [address], [place], [place], [address], [place]. tel:[phone] Referring Provider: [address] [address], [place], [address] . tel:[phone] [facility], [address], [place], [place], [address] , tel: [phone] [facility] (primary) hypertension Sherice Freitas. [address], [address], [place], [place], [address], [place]. tel:[phone] Referring Provider: [address], [place], [address] . tel:[phone] [facility], [address], [place], [place], [address] , tel: [phone] [facility] (primary) hypertensionMor bid obesity, unspecified obesity typeMajor depressive disorder, recurrent episode, mild 8 Geovanny Sandy. [address], [address], [place], [place], [address], [place]. tel:[phone] Referring Provider: [address], [place], [address] . tel:[phone] [facility], [address], [place], [place], [address] , tel: [phone] [facility] (primary) hypertensionMor bid obesity, unspecified obesity typeMajor depressive disorder, recurrent episode, mildIrritable bowel syndrome without diarrheaGastro- esophageal reflux disease without esophagitis 8 Geovanny Sandy. [address], [address], [place], [address], . tel:[phone] Referring Provider: [address], [place], [address] . tel:[phone] [facility], [address], [place], [place], [address] , tel: [phone] [facility] (primary) hypertension 7 Sherice Miranday. [address], [address] [place] [address], [id number], . [phone] Referring Provider: [address] [place] [address], [address] . tel:[phone] [facility], [address], [place], [place], [address] , tel: [phone] [facility] (primary) hypertension Smiley Zena. [address], [facility], [place], [address], . [phone] Referring Provider: [address] Suite [facility], [place], [address] . tel:[phone] Jule[facility], [address], [place], [place], [address] , tel: [phone] [facility] (primary) hypertensionHyp erlipidemia, unspecifiedMorb id obesity, unspecified obesity typeIrritable bowel syndrome without diarrheaGastro- esophageal reflux disease without esophagitisEnco unter for immunization 7 Geovanny Sandy. [address], [address], [place], [address], . [phone] Referring Provider: [address] [facility], [place], [address] . tel:[phone] [facility], [address], [place], [place], [address] , tel:[phone] [facility] (primary) hypertensionLow back pain with left-sided sciatica, unspecified back pain laterality, unspecified chronicityIrrit able bowel syndrome without diarrheaMorbid obesity, unspecified obesity typeHyperlipide mary anne, unspecified 7 Geovanny Sandy. [address], [address], [place], [address], [place]. tel:[phone] Referring Provider: [address], [place], [address] . tel:[phone] [facility], [address], [place], [place], [address] , tel:[phone] [facility] (primary) hypertensionLow back pain with left-sided sciatica, unspecified back pain laterality, unspecified chronicityIrrit able bowel syndrome without diarrheaMorbid obesity, unspecified obesity type 6 Geovanny Sandy. [address], [address], [place], [place], [address], [place]. tel:[phone] Referring Provider: [address], [place], [address] . tel:[phone] [facility], [address], [place], [place], [address] , [place] tel:[phone] [facility] Low back pain with left-sided sciatica, unspecified back pain laterality, unspecified chronicityEssen tial (primary) hypertension 6 Eric Onofre. [facility], [facility] [address], [place], [address], . tel:[phone] Referring Provider: [address], [place], [address] . tel:[phone] [facility], [address], [place], [place], [address] , tel:[phone] [facility] Low back pain with left-sided sciatica, unspecified back pain laterality, unspecified chronicity 6 Valeriano Patrick. [address], [place], [place], [address], [place]. tel:[phone] Referring Provider: [address], [place], [address] . tel:[phone] [facility], [address], [place], [place], [address] , tel:[phone] [facility] Sciatica of left side [address] Valeriano Patrick. [address], [place], [place], [address], [place]. tel:[phone] Referring Provider: [address], [place], [address] . tel:[phone] [facility], [address], [place], [place], [address] , tel:[phone] [facility] Sciatica, leftEssential (primary) hypertensionIrr itable bowel syndrome without diarrheaMorbid obesity, unspecified obesity type 6 Geovanny Sandy. [address], [address], [place], [place], [address], [place]. tel:[phone] Referring Provider: [address], [place], [address] . tel:[phone] [facility], [address], [place], [place], [address] , tel:[phone] [facility] RUQ pain 5 Anisa Avalos. [address], [address], [place], [place], [address], [place]. tel:[phone] [facility], [address], [place], [place], [address] , tel:[phone]|[id number]|2025-01-10 11:43:00|2025-01-10 11:43:00|XMS_ITS|MELIZA SAWYER|External Medical Summaries|[id number]|" CONTINUITY OF CARE DOCUMENT Created on: January 10, 2025 Sara Moody : 1950 Sex: Female Author Name charbelanatoly nathaly Address Unknown Organization [facility] Address [address] [place] [address] Phone [phone] Care Team Providers Care Decorative Greens Cutter Name Role Phone Juan F MOJICA, Kaviniya Unavailable [phone] PATTI DO, YASMINE Unavailable [phone] PATTI DO, YASMINE Unavailable [phone] PROBLEMS Condition Status Date Provider Notes Dizziness active Jhon Salas INSURANCE PROVIDERS Payer name Policy type / Coverage type Vida red republican ID [facility] GR[facility] MEDICARE ADVANTAGE PLAN (PPO) Medicare [id number] TREATMENT PLAN Date Name Stress Echo HISTORY OF PROCEDURES Procedure Date Procedure Name Provider Procedure Notes S stephanie [facility] - Tech Omar Martinez MD completed [facility] Te[facility] - Prof Omar Martinez MD completed "
--- OUTSIDE RECORDS SUMMARY | 2025-01-10 11:43 | XMS_ITS | Clinical Summary ---
Author Organization [facility] Address [address] [address] Care Team Providers Care Sales Compensation Analyst Name Role Phone Yasmine Caruso DO Primary Care Provider [phone] Allergies Active Allergy Reactions Criticality Noted Date [...] Department Care Team Description 10/28/2024 12:50 PM INTERNAL RECRUITER Ancillary Procedure [address] [id number] Zena Smiley, HOISTING ENGINEER Cough, unspecified 10/28/2024 Ancillary Procedure [facility] [employer] [address] [place] [address] Zena Smiley, HOISTING ENGINEER Cough, unspecified from Last 3 Months Social [...] LATERAL 2 VW Routine 10/28/2024 12:14 PM INTERNAL RECRUITER Cough, unspecified from Last 3 Months Results * XR CHEST PA AND LATERAL 2 VW (10/28/2024 12:14 PM INTERNAL RECRUITER) Anatomical Region Laterality Modality Chest Computed Radiogr aphy 10/28/2024 12:1 4 PM INTERNAL RECRUITER Impressions 10/28/2024 12:26 PM INTERNAL RECRUITER IMPRESSION: NO ACTIVE DISEASE. Narrative 10/28/2024 12:26 PM INTERNAL RECRUITER EXAM: XR CHEST PA AND LATERAL 2 VW DATE: 10/28/2024 12:24 PM HISTORY: Cough, unspecified COMPARISON: None FINDINGS: The cardiomediastinal silhouette is normal. Pulmonary vascularity is normal. Lungs are clear. Procedure Note Verenice Dwyer MD - 10/28/2024 EXAM: XR CHEST PA AND LATERAL 2 VW DATE: 10/28/2024 12:24 PM HISTORY: Cough, unspecified COMPARISON: None FINDINGS: The cardiomediastinal silhouette is normal. Pulmonary vascularity is normal. Lungs are clear. IMPRESSION: NO ACTIVE DISEASE. us Zena Mikayla Smiley HOISTING ENGINEER DIAGNOSTIC IMAGING ORDERABLE S Final Result from Last 3 Months [id number] Care Teams Sales Compensation Analyst Relationship Specialty Start Date End Date Yasmine Caruso DO [address] [place] [address] PCP - General 04/12/21
--- OUTSIDE RECORDS SUMMARY | 2025-01-10 11:43 | XMS_ITS | Clinical Summary ---
Author Organization [facility] Address [address] [place] [address] Care Team Providers Care Art Objects Repairer Name Role Phone Du Small MD Primary Care Provider [phone] Source Comments [facility] and Associated Physician Practices is amultiple site organization consisting of ambulatory clinics and hospital sitesin [place], [place], [place] and [place]. This disclosure is being madepursuant to the Care Everywhere program and may not contain all information available regarding this patient. Last updated 18.[facility] Allergies Active Allergy Reactions Criticality Noted Date Comments Etodolac 12/30/2013 Sulfa Drugs 12/30/2013 Medications * Be aware that medications may not be up to date on this document. Alwaysverify current medications with the patient. lisinopril (PRINIVIL; ZESTRIL) 20 MG tablet Take 20 mg by mouth once daily. Active hydrochlorothia zide (HYDRODIURIL) 50 MG tablet Take 50 mg by mouth once daily. Active escitalopram (LEXAPRO) 20 MG tablet Take 20 mg by mouth once daily. Active doxycycline 100 MG 100 mg in 0.9% NaCl 0.9 % 100 mL 100 mg by Intravenous route every 12 hours. Active methylPREDNISol one (MEDROL DOSEPAK) 4 MG tablet Take by mouth as directed 21 Packet 0 5 Active traMADol (ULTRAM) 50 MG tablet Take 1 Tab by mouth every 6 hours as needed for Pain 15 Tab 0 5 Active Active Problems Problem Noted Date Diagnosed [...] = 0.6 oz pur e alcohol) occasionally Comments Unknown Sex and Gender Information Value Date Recorded Sex Assigned at Not on file Legal Sex Female 5:51 AM STONE BREAKER Gender Identity Not on file Sexual Orientation Not on file Last Filed Vital Signs Vital Sign Reading Time Taken Comments Blood Pressure 172/95 08/13/2015 11:29 AM STONE BREAKER Pulse 81 08/13/2015 11:29 AM STONE BREAKER Temperature 37.3 C (99.2 F) 08/13/2015 11:29 AM STONE BREAKER Respiratory Rate 18 08/13/2015 11:29 AM STONE BREAKER Oxygen Saturation 98% 08/13/2015 11:29 AM STONE BREAKER Inhaled Oxygen Concentration - - Weight 95.3 kg (210 lb) 08/13/2015 11:29 AM STONE BREAKER Height 162.6 cm (5' 4.02 ) 08/13/2015 11:[address] Body Mass Index 36.03 08/13/2015 11:29 AM STONE BREAKER Plan of Treatment Health Maintenance Due Date [...] VACCINE ( - 2023-2 5 season) 2024 DEPRESSION SCREENING 08/25/2024 INFLUENZA VACCINE (Season Ended) 2025 Respiratory Syncytial Virus (RSV) Vaccine Pt: or [...] on patient's age to complete this topic Insurance [facility] Care Teams Art Objects Repairer Relationship Specialty Start Date End Date Du Small MD PCP - General Internal Medicine 12/30/13
--- OUTSIDE RECORDS SUMMARY | 2025-01-10 11:43 | XMS_ITS | Encounter Summary ---
Author Organization [facility] Address [address] [place] [address] Care Team Providers Care Equipment Application Specialist Name Role Phone Du Small MD Primary Care Provider [phone] Encounter Details Date Type Department Care Team (Late st Contact Info) Description 02/17/[address] [facility] [address] [place] [address] [place] [address] Russell Marte MD [address] [place] [address] Social History Tobacco Use Types Packs/Day Years Used Date Smoking Tobacco: Never Alcohol Use Standard Drinks/Week Comments Yes 0 (1 standard drink = 0.6 oz pur e alcohol) Comments Unknown Sex and Gender Information Value Date Recorded Sex Assigned at Not on file Legal Sex Female 5:51 AM MANUFACTURING TECHNICIAN Gender Identity Not on file Sexual Orientation Not on file documented as of this encounter Plan of Treatment Not on file documented as of this encounter Visit Diagnoses Not on filedocumented in this encounter Care Teams Equipment Application Specialist Relationship Specialty Start Date End Date Du Small MD PCP - General Internal Medicine 12/30/13 documented as of this encounter
--- NOTE | 2025-01-10 11:55 | ECG_ITS ---
Test Date: 2025-01-10 12:14:27 Measurements Intervals [place] Rate: 66 P: 58 MO: 158 QRS: 14 QRSD: 98 T: 40 QT: 413 QTc: 436 Interpretive Statements SINUS RHYTHM WARNING: DATA QUALITY MAY AFFECT INTERPRETATION No previous ECG available for comparison Electronically Signed On 01-10-2025 12:29:22 CDT by Kolton Smith M.D.
[2025-01-10 12:24] LABS: Basophils Absolute Auto 0.1 K/mm3 (0.0-0.1); Basophils Percent Auto 0.8 % (0.2-1.2); Eosinophils Absolute Auto 0.4 K/mm3 (0-0.3); Hematocrit 43.2 % (37.0-47.0); Hemoglobin 14.1 g/dL (12.0-15.0); Immature Granulocyte Absolute 0.01 K/mm3 (0.00-0.031); Immature Granulocyte Percent A 0.1 % (0-0.5); Mean Corpuscular HGB Conc 32.6 g/dl (32-36); Mean Corpuscular Hemoglobin 29.9 pg (26-34); Mean Corpuscular Volume 91.5 fl (80-100); Mean Platelet Volume 9.2 fl (7.4-10.4); Monocytes Absolute Auto 0.5 K/mm3 (0.1-0.6); Monocytes Percent Auto 7.3 % (2.6-8.5); Neutrophils Absolute Auto 3.7 K/mm3 (1.3-6.7); Neutrophils Percent Auto 51.8 % (45.5-73.1); Platelet Count Result 280 k/mm3 (150-375); Red Blood Count 4.72 M/mm3 (4.2-5.4); Red Cell Distribution Width 12.4 % (11.5-14.5); White Blood Count 7.2 K/mm3 (4.5-10.0)
[2025-01-10 12:32] LABS: Anion Gap 9 mmol/L (4-12); Blood Urea Nitrogen 19 mg/dL (7-17); Carbon Dioxide 29 mmol/L (22-30); Chloride 98 mmol/L (98-107); Estimated Glomerular Filt Rate 55; Glucose 91 mg/dL (65-110); Sodium 136 mmol/L (137-145)
[2025-01-10 12:33] LABS: Urine Cotinine NEGATIVE
[2025-01-10 12:34] LABS: Hemoglobin A1C 5.2 % (<5.7)
[2025-01-10 13:34] LABS: MRSA (PCR) NOT DETECTED (NOT DETECTE)
== END 2025-01-10 11:02 | disposition home or self-care (01) ==
LOC: ANHSURGERY 11:06
PROVIDERS: Anesthesiology; PCP Internal Medicine; Visit Provider Orthopaedic Surgery
DX: M17.11 Unilateral primary osteoarthritis, right knee (principal); I10 Essential (primary) hypertension; Z01.818 Encounter for other preprocedural examination
CPT/HCPCS: 36415; 80048; 80307; 82040; 83036; 85025; 87641; 93005

== ENCOUNTER 2025-02-08 03:25 | Day surgery (SDC) | payer MEDICARE, SELFPAY ==
--- NOTE | 2025-01-10 11:06 | PC.NURSE ---
Report to the Outpatient Waiting Room, entrance under the green pavilion located off [facility], at time __6 AM on date __02/08/25 . Planned Procedure Time: __7:30 AM .? Time changes happen often and if your time is changed the preop area will call you the afternoon before. - You and your visitor will be asked to self-screen and do not enter if you have any COVID symptoms. Please call surgeon if you need to reschedule. - A mask is optional within the hospital at this time. Patients may have clear liquids (water, carbonated beverages, clear teas, apple juice) until 3 hours prior to surgery ( 4:30 AM) with a maximum of 20 ounces. - No food from midnight until time of surgery and no smoking, or chewing tobacco (or any form of nicotine). No chewing gum, candy or mints. - Take only the following medications with a SIP of water on the morning of surgery: ___METOPROLOL_, EYE DROPS DO NOT STOP ANY OF YOUR OTHER PRESCRIPTION MEDICATIONS PRIOR TO SURGERY EXCEPT THE FOLLOWING Hold all vitamins and supplements for 3 days per anesthesiologist.LAST DOSE 02/04/25 Medications to discontinue per physician _ASPIRIN AND ALEVE HOLD 7 DAYS PRE OP PER DR FRANKEL Date to take last dose____01/31/25 MAY TAKE TYLENOL IF NEEDED FOR PAIN Please no make-up, nail iraqi, hairspray, perfume, deodorant, or body powder the day of surgery.? No jewelry (including any body piercings) or valuables the day of surgery, leave them at home.? Please take a shower or bath the night before, or the morning of, surgery with an antibacterial soap.? Wear comfortable, loose fitting clothing.? Children are encouraged to wear pajamas. - Jewelry must be removed prior to entering the operating room.? Rings and piercings that are not removed may be cut off. - The hospital will not accept responsibility for valuables.? - Please leave all valuables, including medications, at home the day of surgery. If you are going home after surgery, a licensed cdl driver must drive you home.? - NO public transportation without another adult if you receive anesthesia. - We recommend that an adult stay with you for 24 hours following discharge. - We also recommend that you do not drive, make important decision, drink alcoholic beverages, or take any drugs that were not prescribed by your health care provider for at least 24 hours after your discharge time. Follow any additional instructions given to you from your surgeon. VERBAL AND WRITTEN instructions given to ___PATIENT and asked if any additional questions and then verbalized understanding. Patient advised to call surgeon office or pre surgery nurse liaison [phone] if any additional questions.
[2025-01-10 11:10] VITALS: BMI 33.4
[2025-01-10 11:55] VITALS: BP 144/87; PULSE 68; RESP 18; TEMP 36.7; O2SAT 97
[2025-02-08] VITALS (16 sets, daily range): BP systolic 138–176; BP diastolic 72–92; PULSE 69–91; RESP 12–18; TEMP 35.9–36.8; O2SAT 94–100
--- NOTE | ~2025-02-08 | XR_ITS ---
EXAMINATION: [id number] DATE: 02/08/2025 09:59 INDICATION: Postoperative evaluation following right total knee arthroplasty. TECHNIQUE: Anteroposterior and lateral views of the right knee were obtained. COMPARISON: None. FINDINGS: Right total knee arthroplasty with patellar resurfacing appears well seated and in near anatomic alig nment. No fractures identified. Expected postoperative subcutaneous, intramedullary and intra-articu lar gas. IMPRESSION: 1. Right total knee arthroplasty, negative for postoperative purposes. Reviewed, dictated and finalized at location A.
--- OUTSIDE RECORDS SUMMARY | 2025-02-08 03:28 | XMS_ITS | Continuity of Care Document ---
Author Organization [employer] Address [address] [place] [address] Phone Care Team Providers Care [employer] Car [employer]er Name Role Phone Yasmine Tate DO Unavailable Unavailable Allergies, Adverse Reactions, Alerts Substance Reaction Status Criticality etodolac Rash Active No Information Sulfa (Sulfonamide Antibiotics) Other Active No Information Medications Medication Instructions Dosage Effective Dates (start - stop) Status Comments pantoprazole 40 mg tablet,delayed release take 1 tablet by oral route every day 40 MG - Active albuterol sulfate HFA 90 mcg/actuation aerosol inhaler inhale 2 puff by inhalation route every 4 hours as needed 2 puff - Active Dr Tate prednisone 20 mg tablet take 2 tablet by oral route every day 40 MG - Active dr tate meloxicam 7.5 mg tablet take 1 tablet by oral route every day 7.5 MG - Active Dr Tate metoprolol succinate ER [...] into affected eye(s) 1.00 drop - Active latanoprost 0.005 % eye drops instill 1 drop by ophthalmic route every day into affected eye(s) in the evening 1.00 drop - Active Lotemax 0.5 % eye drops,suspension instill 1 drop by ophthalmic route 2 times every day into affected eye(s) 1 drop - Active pantoprazole 40 mg tablet,delayed release take 1 tablet by oral route every day 40 MG - No Longer Active Please call pt when ready Procedures Procedure Date MED LIST DOCD IN RCRD FALL RISK ASSESSMENT DOC'D PRES/ABSN URINE INCON ASSESS Pt inelig neg scrn depres LIPID PANEL PARATHYROID HORMONE (PTH) VITAMIN D, 25-HYDROXY ROUTINE VENIPUNCTURE BASIC METABOLIC PANEL(BMP) CBC, INC PLATELETS, NO DIFFERENTIAL PPPS, subseq visit BODY MASS INDEX DOCD SYST BP GE 130 - 139MM HG DIAST BP 80-89 MM HG OFFICE [id number] BODY MASS INDEX DOCD SYST BP GE 130 - 139MM HG DIAST BP < 80 MM HG CBC, INC PLATELETS AND DIFFERENTIAL COMPREHEN METABOLIC PANEL CMP THYROID STIMULATION HORMONE(TSH) 2024 ROUTINE VENIPUNCTURE EKG (ELECTROCARDIOGRAM) OFFICE [id number] BODY MASS INDEX DOCD SYST BP LT 130 MM HG DIAST BP 80-89 MM HG BASIC METABOLIC PANEL(BMP) CBC, INC PLATELETS, NO DIFFERENTIAL LIPID PANEL MAGNESIUM (MG), SERUM ROUTINE VENIPUNCTURE BODY MASS INDEX DOCD SYST BP GE 130 - 139MM HG DIAST BP 80-89 MM HG OFFICE [id number] Admin influenza virus vac FLU VACC PRSV FREE INC ANTIG KENALOG 10 MG ASP/INJ MAJOR JOINTOR BURSA, SHOULDER, H IP,KNEE W/O US GUIDANCE OFFICE [id number]-[id number]-HEXORBAG BODY MASS INDEX DOCD SYST BP LT 130 MM HG DIAST BP < 80 MM HG Pt inelig neg scrn depres OFFICE [id number]-[id number] BODY MASS INDEX DOCD SYST BP GE [...] HG BASIC METABOLIC PANEL(BMP) ROUTINE VENIPUNCTURE OFFICE [id number] BODY MASS INDEX DOCD SYST BP LT [...] < 80 MM HG COLONOSCOPY AND BIOPSY TISSUE EXAM BY PATHOLOGIST Pt inelig neg scrn depres Admin influenza virus vac FLU VACC PRSV FREE INC ANTIG BASIC METABOLIC PANEL(BMP) CBC, INC PLATELETS, NO DIFFERENTIAL LIPID PANEL ROUTINE VENIPUNCTURE OFFICE [id number] BODY MASS INDEX DOCD SYST BP LT 130 MM HG DIAST BP < 80 MM HG FALL RISK ASSESSMENT DOC'D PRES/ABSN URINE INCON ASSESS OFFICE [id number]-[id number] BODY MASS INDEX DOCD SYST BP LT 130 MM HG DIAST BP < 80 MM HG Pneumococcal Conjugate Vaccine (PCV20) M BASIC METABOLIC PANEL(BMP) CBC, INC PLATELETS, NO DIFFERENTIAL LIPID PANEL ROUTINE VENIPUNCTURE OFFICE WEFHG-YUO-USAFAUXY BODY MASS INDEX DOCD SYST BP LT 130 MM HG DIAST BP < 80 MM HG PNEUMOVAX ADM MEDICARE LIPID PANEL ROUTINE VENIPUNCTURE OFFICE [id number]-[id number] BODY MASS INDEX DOCD SYST BP GE 130 - 139MM HG DIAST BP < 80 MM HG Brief Emotional/Behavioral A ssessment, With Scoring/Doct, Per Stndrd Instrument Clin depression screen doc OFFICE [id number]-[id number] BODY MASS INDEX DOCD SYST BP >= 140 MM HG6 IT DIAST BP >= 90 MM HG Admin influenza virus vac FLU VACC PRSV FREE INC ANTIG OFFICE [id number]-[id number] BODY MASS INDEX DOCD SYST BP LT 130 MM HG DIAST BP 80-89 MM HG OFFICE GLGAD-EEH-SOEPMEHP BODY MASS INDEX DOCD SYST BP GE 130 - 139MM HG DIAST BP < 80 MM HG FALL RISK ASSESSMENT DOC'D PRES/ABSN URINE INCON ASSESS Pt inelig neg scrn depres BASIC METABOLIC PANEL(BMP) CBC, INC PLATELETS, NO DIFFERENTIAL HEMOGLOBIN A1C HGA1C, GLYCO LIPID PANEL ROUTINE VENIPUNCTURE OFFICE [id number]-WZO-HEIBSZPZ BODY MASS INDEX DOCD SYST BP LT 130 MM HG DIAST BP < 80 MM HG Pt inelig neg scrn depres BASIC METABOLIC PANEL(BMP) CBC, INC PLATELETS AND DIFFERENTIAL ROUTINE VENIPUNCTURE KENALOG 10 MG ASP/INJ MAJOR JOINTOR BURSA, SHOULDER, H IP,KNEE W/O US GUIDANCE OFFICE EVRJY-XHA-FMOSUTDF BODY MASS INDEX DOCD SYST BP GE 130 - 139MM HG DIAST BP < 80 MM HG Admin influenza virus vac FLU VACC PRSV FREE INC ANTIG OFFICE OEEMS-OVO-KBHJHNHA BODY MASS INDEX DOCD SYST BP LT 130 MM HG DIAST BP 80-89 MM HG Pt inelig neg scrn depres FALL RISK ASSESSMENT DOC'D PRES/ABSN URINE INCON ASSESS CBC, INC PLATELETS, NO DIFFERENTIAL COMPREHEN METABOLIC PANEL CMP 0 LIPID PANEL ROUTINE VENIPUNCTURE OFFICE HVEUC-YSN-KJBDZESR BODY MASS INDEX DOCD SYST BP LT 130 MM HG DIAST BP < 80 MM HG Pt inelig neg scrn depres BASIC METABOLIC PANEL(BMP) CBC, INC PLATELETS, NO DIFFERENTIAL LIPID PANEL ROUTINE VENIPUNCTURE OFFICE VFUZX-RVR-[id number] BODY MASS INDEX DOCD SYST BP LT 130 MM HG DIAST BP 80-89 MM HG Advance Directives Directive Yes / No Effective Date File Name No Information Encounters Encounter Description Practice Location Reason(s) For Visit Diagnoses Date Provider Providers Copied on Encounter [facility] [employer], [address], [place], [place], [address] , tel:[phone] [facility] No Information 5 Shady Underwood. [address], [address], [place], [place], [address], [place]. tel:[phone] [employer], [address], [place], [place], [address] , tel: [phone] [facility] Medicare preventive (chief complaint)h pi (chief complaint) Body mass index [BMI] 33.0-33.9, adultEncntr for general adult medical exam w/o abnormal findingsHyperte nsive chronic kidney disease with stage 1 through stage 4 chronic kidney disease, or unspecified chronic kidney diseaseCKD stage 3a, GFR 45-59 ml/minChronic GERDPrimary osteoarthritis of right knee 5 Shady Underwood. [address], [address], [place], [place], [address], . tel:[phone] Referring Provider: Yasmine Small, [address], [place], [address] . tel:[phone] [facility], [address], [place], [place], [address] , [place] tel:[phone] [facility] fu (chief complaint) Cough, unspecified typeAbnormal MRI, kneeEssential (primary) hypertensionMix ed hyperlipidemiaB radycardiaPerso nal history of transient ischemic attack (TIA), and cerebral infarction without residual deficitsGastro- esophageal reflux disease without esophagitis 5 Smiley Zena. [address], [place], [place], [address], [place]. tel:[phone] Referring Provider: Yasmine Small, [address], [place], [address] . tel:[phone] [facility], [address], [place], [place], [address] , [place] tel:[phone] [facility] Near syncope 5 Smiley Zena. [address], [place], [place], [address], [place]. tel:[phone] Referring Provider: [address], [place], [address] . tel:[phone] [facility]ICE [facility], [address], [place], [place], [address] , tel:[phone] [facility] preop (chief complaint) Near syncopeBradycar diaGastro-esoph ageal reflux disease without esophagitisMixe d hyperlipidemiaE ssential (primary) hypertensionAbn ormal MRI, kneeObesity, unspecifiedPers onal history of transient ischemic attack (TIA), and cerebral infarction without residual deficitsPre-op evaluation 5 Sherice Freitas. [address], [address], [place], [place], [address], [place]. tel:[phone] Referring Provider: Yasmine Small, [address], [place], [address] . tel:[phone] [facility], [address], [place], [place], [address] , tel: [phone] [facility] No Information 5 Shady Underwood. [address], [address], [place], [place], [address], [place]. tel:[phone] [facility] [address], [place], [place], [address] , tel: [phone] [facility] No Information 4 Shady Underwood. [address], [address], [place], [place], [address], [place]. [phone] OFFICE LJTGL-SEB-GC [facility], [address], [place], [place], [address] , tel: [phone] [facility] Chronic Conditions (chief complaint)P E (chief complaint)M edicare preventive (chief complaint) Body mass index [BMI] 34.0-34.9, adultEssential (primary) hypertensionMix ed hyperlipidemiaG milton-esophagea l reflux disease without esophagitisAdul t general medical examMyalgia, unspecified siteAbnormal MRI, knee 4 Shady Underwood. [address], [address], [place], [place], [address], [place]. tel:[phone] Referring Provider: Yasmine Small, [address], [place], [address] . tel:[phone] [facility], [address], [place], [place], [address] , [place] tel: [phone] [facility] Abnormal MRI, knee May-2 4 Shady Underwood. [address], [address], [place], [place], [address], [place]. [phone] [facility], [address], [place], [place], [address] , [place] tel: [phone] [facility] Right medial knee pain May-0 4 Shady Underwood. [address], [address], [place], [place], [address], [place]. [phone] Referring Provider: Yasmine Small, [address] [facility], [place], [address] . tel:[phone] OFFICE HNHBU-TNM-VA PANDED [facility], [address], [place], [place], [address] , tel: [phone] [facility] Medicine rt knee (chief complaint) Right medial knee pain May-0 4 Sherice Freitas. [address], [address], [place], [place], [address], [place]. [phone] Referring Provider: Yasmine Small, [address], [place], [address] . tel:[phone] [facility], [address], [place], [place], [address] , [place] tel:[phone] [facility] Arthritis of both kneesBack pain, unspecified back location, unspecified back pain laterality, unspecified chronicityBilat eral primary osteoarthritis of hip 4 Shady Underwood. [address], [address], [place], [place], [address], [place]. tel:[phone] [facility], [address], [place], [place], [address] , tel:[phone] [facility] Leg pain, right 4 Shady Underwood. [address], [address], [place], [place], [address], [place]. tel:[phone] OFFICE LGIPP-MHS-OK PANDED [facility], [address], [place], [place], [address] , tel:[phone] [facility] acute visit (chief complaint) Leg pain, rightEssential (primary) hypertension 4 [facility]. [address], [place], [place], [address], [place]. tel:[phone] Referring Provider: Yasmine Small, [address], [place], [address] . tel:[phone] [facility], [address], [place], [place], [address] , [phone] [facility] No Information 4 Shady Underwood. [address], [address], [place], [place], [address], [place]. tel:[phone] [facility], [address], [place], [place], [address] , tel:[phone] [facility] No Information 4 Shady Underwood. [address], [address], [place], [place], [address], . tel:[phone] [facility], [address], [place], [place], [address] , tel:[phone] [facility] Chronic Conditions (chief complaint)M edicare preventive (chief complaint)H PI (chief complaint) Body mass index [BMI] 33.0-33.9, adultMixed hyperlipidemiaG milton-esophagea l reflux disease without esophagitisEsse ntial (primary) hypertensionMya lgia, unspecified siteObesity, unspecifiedMajo r depressive disorder, recurrent, unspecifiedAdul t general medical examOther fatigue 4 Shady Underwood. [address], [address], [place], [address], . tel:[phone] Referring Provider: Yasmine Small, [address], [place], [address] . tel:[phone] [facility], [address], [place], [place], [address] , tel:[phone] [facility] Tinnitus, bilateral 3 Shady Underwood. [address], [address], [place], [place], [address], [place]. tel:[phone] OFFICE OWPPY-YFT-SS TAILED [facility], [address], [place], [place], [address] , tel:[phone] [facility] Patient encounter (chief complaint) Essential (primary) hypertensionTin nitus, unspecified lateralityLeft foot pain 3 Sherice Freitas. [address], [address] [facility], [place], [place], [address], . tel:[phone] Referring Provider: [address] [facility], [place], [address] . tel:[phone] [facility], [address], [place], [place], [address] , tel:[phone] [facility] Medicare preventive (chief complaint)C hronic Conditions (chief complaint)c hronic conditions (chief complaint) Essential (primary) hypertensionMix ed hyperlipidemiaM ajor depressive disorder, recurrent, unspecifiedGast ro-esophageal reflux disease without esophagitisAdul t general medical examBody mass index [BMI] 33.0-33.9, adult 3 Shady Underwood. [address], [address], [place], [place], [address], . tel:[phone] Referring Provider: [address], [place], [address] . tel:[phone] [facility], [address], [place], [place], [address] , [place] tel:[phone] [facility] No Information 3 Dolores Walker. [address] [facility], [address], [place], [place], [address], [place]. tel:[phone] Referring Provider: [address], [place], [address] . tel:[phone] [facility], [address], [place], [place], [address] , tel:[phone] [facility] No Information 3 Dolores Walker. [address] [facility], [address], [place], [place], [address], [place]. tel:[phone] Referring Provider: [address] [facility], [place], [address] . tel:[phone] OFFICE URTCY-ZEU-OL [facility], [address], [place], [place], [address] , [phone] [facility] Chronic Conditions (chief complaint) Essential (primary) hypertensionMix ed hyperlipidemiaM ajor depressive disorder, recurrent, unspecifiedGast ro-esophageal reflux disease without esophagitis 2 Shady Underwood. [address], [address], [place], [place], [address], [place]. tel:[phone] Referring Provider: [address], [place], [address] . tel:[phone] OFFICE UDLMH-ERA-NW [facility], [address], [place], [place], [address] , [place] tel:[phone] [facility] Lumbar painEssential (primary) hypertension 2 Geovanny Sandy. [address], [address], [place], [place], [address], [place]. tel:[phone] Referring Provider: [address], [place], [address] . tel:[phone] [facility]ICE [facility], [address], [place], [place], [address] , tel: [phone] [facility] Chronic Conditions (chief complaint) Essential (primary) hypertensionMix ed hyperlipidemiaM ajor depressive disorder, recurrent, unspecifiedGast ro-esophageal reflux disease without esophagitisMyal baljinder, unspecified siteBody mass index [BMI] 34.0-34.9, adult Oct- [address], [address], [place], [place], [address], [place]. [phone] Referring Provider: [address] [facility], [place], [address] . tel:[phone] OFFICE CVFDE[facility]UNF[facility], [address], [place], [place], [address] , tel: [phone] [facility] Chronic Conditions (chief complaint) Mixed hyperlipidemiaM ajor depressive disorder, recurrent, unspecifiedEsse ntial (primary) hypertensionBod y mass index [BMI] 34.0-34.9, adult Jul- [address], [address], [place], [place], [address], [place]. tel:[phone] Referring Provider: [address] [facility], [place], [address] . tel:[phone] OFFICE UFLYX[facility]XTO[facility], [address], [place], [place], [address] , tel:[phone] [facility] Chronic Conditions (chief complaint) Body mass index [BMI] 34.0-34.9, adultMajor depressive disorder, recurrent, unspecifiedEsse ntial (primary) hypertension Dec- [address], [address], [place], [place], [address], [place]. tel:[phone] Referring Provider: [address], [address] . tel:[phone] OFFICE WSIYF[facility]QVL[facility]FL[facility], [address], [place], [place], [address] , tel:[phone] [facility] Chronic Conditions (chief complaint) Major depressive disorder, recurrent, unspecifiedBila teral primary osteoarthritis of hipBody mass index [BMI] 34.0-34.9, adult May-0 1 Shady Underwood. [address], [address] [facility], [place], [place], [address], . tel:[phone] Referring Provider: [address] [place] [address], [address] . tel:[phone] OFFICE CRZXK-GAF-[facility]ILif[facility], [address], [place], [place], [address] , tel:[phone] [facility] Chronic Conditions (chief complaint) Bilateral primary osteoarthritis of hipEssential (primary) hypertensionMaj or depressive disorder, recurrent, unspecifiedBody mass index (BMI) 35.0-35.9, adult Apr-[address], [address] [facility], [place], [place], [address], . tel:[phone] Referring Provider: [address] [facility], [place], [address] . tel:[phone] OFFICE DSONX-ANG-[facility]JLif[facility], [address], [place], [place], [address] , tel:[phone] [facility] Chronic Conditions (chief complaint) Essential (primary) hypertensionMix ed hyperlipidemiaM yalgia, unspecified siteImpaired glucose tolerancePerson al history of transient ischemic attack (TIA), and cerebral infarction without residual deficitsOther sequelae following unspecified cerebrovascular diseaseBody mass index (BMI) 36.0-36.9, adult December- [address], [address], [place], [place], [address], . tel:[phone] Referring Provider: [address], [place], [address] . tel:[phone] [facility]ICE [facility], [address], [place], [place], [address] , tel:[phone] [facility] Chronic Conditions (chief complaint) Essential (primary) hypertensionGas tro-esophageal reflux disease without esophagitisPrim aly osteoarthritis, right shoulderBody mass index (BMI) 36.0-36.9, adult Jun- 0-202 0 Shady Underwood. [address], [address], [place], [place], [address], [place]. tel:[phone] Referring Provider: [address] [facility], [place], [address] . tel:[phone] OFFICE LRTEQ-NER-HM [facility], [address], [place], [place], [address] , tel:[phone] [facility] Acute (chief complaint) Body mass index (BMI) 36.0-36.9, adultRight shoulder pain, unspecified chronicityLeft shoulder pain, unspecified chronicity 5 0 Maren Stoll. [address], [address], [place], [place], [address], [place]. tel:[phone] Referring Provider: [address] [facility], [place], [address] . tel:[phone] OFFICE [facility], [address], [place], [place], [address] , tel:[phone] [facility] Chronic Conditions (chief complaint) Mixed hyperlipidemiaM yalgia, unspecified siteEssential (primary) hypertensionMaj or depressive disorder, recurrent, unspecifiedGast ro-esophageal reflux disease without esophagitisBody mass index (BMI) 36.0-36.9, adult December- 8 0 Shady Underwood. [address], [address], [place], [place], [address], . tel:[phone] Referring Provider: [address], [place], [address] . tel:[phone] OFFICE LYULL-KYB-BV [facility], [address], [place], [place], [address] , tel:[phone] [facility] Chronic Conditions (chief complaint) Body mass index (BMI) 36.0-36.9, adultMixed hyperlipidemiaE ssential (primary) hypertensionMaj or depressive disorder, recurrent, unspecifiedGast ro-esophageal reflux disease without esophagitisMyal baljinder, unspecified site Shady Underwood. [address], [address], [place], [place], [address], . tel:[phone] Referring Provider: [address], [place], [address] . tel:[phone] [facility], [address], [place], [place], [address] , [place] tel:[phone] [facility] Chronic Conditions (chief complaint) Body mass index (BMI) 36.0-36.9, adultGastro-eso phageal reflux disease without esophagitisEsse ntial (primary) hypertensionMaj or depressive disorder, recurrent, unspecifiedMixe d hyperlipidemiaO ther specified health statusBilateral primary osteoarthritis of hipScreening for diabetes mellitus Shady Underwood. [address], [address], [place], [place], [address], . tel:[phone] Referring Provider: [address], [place], [address] . tel:[phone] [facility], [address], [place], [place], [address] , tel:[phone] [facility] Body mass index (BMI) 35.0-35.9, adultEssential (primary) hypertensionMaj or depressive disorder, recurrent, unspecifiedGast ro-esophageal reflux disease without esophagitisOthe r specified health statusCaregiver stress 2 8 Shady Underwood. [address], [address], [place], [place], [address], . tel:[phone] Referring Provider: Yasmine Small, [address], [place], [address] . tel:[phone] [employer] [place], [address], [place], [place], [address] , tel: [phone] [facility] Essential (primary) hypertension 8 8 [facility] Dodie. [address], [address] [facility], [place], [place], [address], [place]. [phone] Referring Provider: [address] [place] [address], [address] . tel:[phone] [facility], [address], [place], [place], [address] , tel: [phone] [facility] Essential (primary) hypertension 0 8 Maria Cformerly [facility] Dodie. [address], [address] [place] [address], [address], [place]. [phone] Referring Provider: [address] [facility], [place], [address] . tel:[phone] [facility], [address], [place], [place], [address] , tel: [phone] [facility] Essential (primary) hypertension 8 Sherice Freitas. [address], [address] [place] [address], [address], [place]. [phone] Referring Provider: [address] [place] [address], [address] . tel:[phone] [facility], [address], [place], [place], [address] , tel: [phone] [facility] Essential (primary) hypertension 8 Sherice Miranday. [address], [address], [place], [place], [address], [place]. tel:[phone] Referring Provider: [address] [address], [place], [address] . tel:[phone] [facility], [address], [place], [place], [address] , tel:[phone] [facility] Essential (primary) hypertension 8 Sherice Freitas. [address], [address], [place], [place], [address], [place]. tel:[phone] Referring Provider: [address] [facility], [place], [address] . tel:[phone] [facility], [address], [place], [place], [address] , tel: [phone] [facility] (primary) hypertensionMor bid obesity, unspecified obesity typeMajor depressive disorder, recurrent episode, mild Apr-3 0 8 Geovanny Sandy. [address], [address], [place], [place], [address], [place]. tel:[phone] Referring Provider: [address], [place], [address] . tel:[phone] [employer], [address], [place], [place], [address] , tel:[phone] [facility] (primary) hypertensionMor bid obesity, unspecified obesity typeMajor depressive disorder, recurrent episode, mildIrritable bowel syndrome without diarrheaGastro- esophageal reflux disease without esophagitis 8 Geovanny Sandy. [address], [address], [place], [place], [address], [place]. tel:[phone] Referring Provider: [address], [place], [address] . tel:[phone] [employer] [place], [address], [place], [place], [address] , tel:[phone] [facility] (primary) hypertension Sherice Freitas. [address], [address], [place], [place], [address], [place]. [phone] Referring Provider: [address], [place], [address] . tel:[phone] [facility], [address], [place], [place], [address] , tel: [phone] [facility] (primary) hypertension Sherice Freitas. [address], [address], [place], [place], [address], [place]. [phone] Referring Provider: [address], [place], [address] . tel:[phone] [facility], [address], [place], [place], [address] , tel: [phone] [facility] (primary) hypertensionHyp erlipidemia, unspecifiedMorb id obesity, unspecified obesity typeIrritable bowel syndrome without diarrheaGastro- esophageal reflux disease without esophagitisEnco unter for immunization Geovanny Sandy. [address], [address], [place], [place], [address], [place]. [phone] Referring Provider: [address], [place], [address] . tel:[phone] [facility], [address], [place], [place], [address] , tel: [phone] [facility] (primary) hypertensionLow back pain with left-sided sciatica, unspecified back pain laterality, unspecified chronicityIrrit able bowel syndrome without diarrheaMorbid obesity, unspecified obesity typeHyperlipide mary anne, unspecified Aug- 7 Geovanny Sandy. [address], [address], [place], [place], [address], . tel:[phone] Referring Provider: [address], [place], [address] . tel:[phone] [employer], [address], [place], [place], [address] , tel: [phone] [facility] (primary) hypertensionLow back pain with left-sided sciatica, unspecified back pain laterality, unspecified chronicityIrrit able bowel syndrome without diarrheaMorbid obesity, unspecified obesity type 6 Geovanny Sandy. [address], [address], [place], [place], [address], [place]. tel:[phone] Referring Provider: [address], [place], [address] . tel:[phone] [employer], [address], [place], [place], [address] , tel: [phone] [facility] Low back pain with left-sided sciatica, unspecified back pain laterality, unspecified chronicityEssen tial (primary) hypertension 6 Eric Onofre. [address] [facility], [facility] [address], [place], [place], [address], . tel:[phone] Referring Provider: [address], [place], [address] . tel:[phone] [employer], [address], [place], [place], [address] , [place] tel: [phone] [facility] Low back pain with left-sided sciatica, unspecified back pain laterality, unspecified chronicity Nov-2 0-201 6 Valeriano Patrick. [address], [address], [place], [place], [address], [place]. tel:[phone] Referring Provider: [address], [place], [address] . tel:[phone] [employer], [address], [place], [place], [address] , [place] tel:[phone] [facility] Sciatica of left side Nov- 3-201 6 Valeriano Patrick. [address], [address], [place], [place], [address], [place]. tel:[phone] Referring Provider: [address] [facility], [place], [address] . tel:[phone] [facility], [address], [place], [place], [address] , [place] tel: [phone] [facility] Sciatica, leftEssential (primary) hypertensionIrr itable bowel syndrome without diarrheaMorbid obesity, unspecified obesity type 6201 6 Geovanny Sandy. [address], [address], [place], [place], [address], [place]. tel:[phone] Referring Provider: [address], [place], [address] . tel:[phone] [facility], [address], [place], [place], [address] , [place] tel: [phone] [facility] RUQ pain 8 5 Anisa Avalos. [address], [address], [place], [place], [address], [place]. tel:[phone] [facility], [address], [place], [place], [address] , [place] tel: [phone] [facility] RUQ abdominal pain Jun-0 5-201 5 Dolores Walker. [address] [facility], [address], [place], [place], [address], [place]. tel:[phone] Referring Provider: [address], [place], [address] . tel:[phone] [facility], [address], [place], [place], [address] , [place] tel: [phone] [facility] RUQ abdominal pain 0 2201 5 Geovanny Sandy. [address], [address], [place], [place], [address], [place]. tel:[phone] [facility], [address], [place], [place], [address] , [place] tel: [phone] [facility] RUQ abdominal painEssential (primary) hypertensionGas tro-esophageal reflux disease without esophagitis 5 Geovanny Sandy. [address], [address] [place] [address], [address], . tel:[phone] Referring Provider: [address] [facility], [place], [address] . tel:[phone] [employer] [facility], [address], [place], [place], [address] , tel: [phone] [facility] RUQ abdominal pain 3- 5 Marcelo Ríos. [address] [facility], [place] [address], [place], [place], [address]. tel:[phone] Referring Provider: [address] [facility], [place], [address] . tel:[phone] [employer], [address], [place], [place], [address] , tel: [phone] [facility] Pneumonia VaccineHYPERTEN KAIN NOSDepression, acuteESOPHAGEAL REFLUXObesity, unspecified 5 Geovanny Sandy. [address], [address], [place], [place], [address], [place]. tel: [phone] Referring Provider: [address] [facility], [place], [address] . tel:[phone] [employer], [address], [place], [place], [address] , tel: [phone] [facility] HYPERTENSION NOSDepression, acuteESOPHAGEAL REFLUXMorbid obesity 4 Geovanny Sandy. [address], [address], [place], [place], [address], [place]. tel:[phone] Referring Provider: [address] [facility], [place], [address] . tel:[phone] [employer], [address], [place], [place], [address] , [place] tel: [phone] [facility] HYPERTENSION NOSObesity, unspecifiedESOP HAGEAL REFLUXDepressio n, acute 4 Geovanny Sandy. [address], [address], [place], [place], [address], . tel:[phone] Referring Provider: [address] [facility], [place], [address] . tel:[phone] [facility], [address], [place], [place], [address] , tel: [phone] [facility] HYPERTENSION NOSObesity, unspecifiedIBS (irritable bowel syndrome)Depres kain 3 Geovanny Sandy. [address], [address], [place], [place], [address], . tel:[phone] Referring Provider: [address] [place] [address], [address] . tel:[phone] [facility], [address], [place], [place], [address] , tel: [phone] [facility] Unspecified essential hypertensionObe sity, unspecifiedDepr essive disorder, not elsewhere classifiedOther and unspecified hyperlipidemia 3 Geovanny Sandy. [address], [address], [place], [place], [address], . tel:[phone] Referring Provider: [address] [place] [address], [address] . tel:[phone] [facility], [address], [place], [place], [address] , tel:[phone] [facility] Unspecified essential hypertensionOth er and unspecified hyperlipidemia 3 Geovanny Sandy. [address], [address] [place] [address], [address], . tel:[phone] Referring Provider: [address] [facility], [place], [address] . tel:[phone] [facility], [address], [place], [place], [address] , [place] tel: [phone] [facility] Depressive disorder, not elsewhere classifiedEsoph ageal refluxUnspecifi ed essential hypertensionObe sity, unspecified 3 Geovanny Sandy. [address], [address], [place], [place], [address], [place]. tel:[phone] Referring Provider: [address], [place], [address] . tel:[phone] [employer] [facility], [address], [place], [place], [address] , [place] tel: [phone] [facility] Swallowing difficultyUnspe cified essential hypertensionDep ressive disorder, not elsewhere classified 2 Wally Caldera. [address], [facility] [address], [place], [place], [address]. tel:[phone] Referring Provider: [address], [place], [address] . tel:[phone] [employer], [address], [place], [place], [address] , [place] tel: [phone] [facility] Depressive disorder, not elsewhere classifiedALLER GIC RHINITIS NOSUnspecified essential hypertensionNee d for prophylactic vaccination with diptheria-tetan us- pertussis with poliomyelitis (dtp + polio) vaccineNEED FOR PROPHYLACTIC VACCINATION WITH COMBINED DIPHTHERIA-TETA NUS-PERTUSSIS (DTP) (DTAP) VACCINE 1 Wally Caldera. [address], [facility] [address], [place], [place], [address]. tel:[phone] Referring Provider: [address], [place], [address] . tel:[phone] [employer] [facility], [address], [place], [place], [address] , [place] tel: [phone] [facility] NONSPECIF SKIN ERUPT NEC 1 [employer]. [address], [place], [address], [place]. [facility], [address], [place], [place], [address] , [place] tel: [phone] [facility] HYPERTENSION NOSHYPERLIPIDEM IA NEC/NOS 1 Geovanny Sandy. [address], [address], [place], [place], [address], [place]. tel: [phone] [facility], [address], [place], [place], [address] , [place] tel: [phone] [facility] IRRITABLE BOWEL SYNDROMEOBESITY NOSACUTE BRONCHITISDEPRE SSIVE DISORDER NEC 1 Geovanny Sandy. [address], [address], [place], [place], [address], [place]. tel: [phone] [facility], [address], [place], [place], [address] , tel: [phone] [facility] LONG-TERM USE MEDS NEC 0 Geovanny Sandy. [address], [address], [place], [place], [address], [place]. tel: [phone] [facility], [address], [place], [place], [address] , [place] tel: [phone] [facility] BENIGN HYPERTENSIONSCR EEN LIPOID DISORDERS 9 Geovanny Sandy. [address], [address], [place], [place], [address], [place]. tel: [phone] [facility], [address], [place], [place], [address] , [place] tel: [phone] [facility] INFLAMMATION EYELID NOSCONJUNCTIVIT IS NOS 2-200 8 [facility] [facility]. [address], [place], [address], [place]. [facility], [address], [place], [place], [address] , tel: [phone] [facility] JOINT PAIN-L/LEG 7200 8 Geovanny Sandy. [address], [address], [place], [place], [address], [place]. tel: [phone] [facility], [address], [place], [place], [address] , [place] tel:[phone] [facility] MALAISE AND FATIGUE NEC 7 Geovanny Sandy. [address], [address], [place], [place], [address], [place]. tel: [phone] [facility], [address], [place], [place], [address] , [place] tel:[phone] [facility] ABDMNAL PAIN UNSPCF SITE 7 Geovanny Sandy. [address], [address], [place], [place], [address], [place]. tel: [phone] [facility], [address], [place], [place], [address] , tel:[phone] [facility] ABNORMAL WEIGHT GAIN 200 6 Geovanny Sandy. [address], [address] [facility], [place], [place], [address], [place]. tel: [phone] [facility], [address], [place], [place], [address] , [place] tel:[phone] [facility] IKER HY KID W CR KID I-IV 200 6 Geovanny Sandy. [address], [address], [place], [place], [address], [place]. tel: [phone] [facility], [address], [place], [place], [address] , [place] tel:[phone] [facility] CHRONIC BRONCHITIS NOS 0200 6 Geovanny Sandy. [address], [address], [place], [place], [address], [place]. tel: [phone] [facility], [address], [place], [place], [address] , [place] tel:[phone] [facility] ACUTE URI NOS 200 6 [facility]. [address], [place], [address], [place]. [facility], [address], [place], [place], [address] , [place] tel:[phone] [facility] No Information 200 5 Valeriano Patrick. [address] [facility], 4th Floor, [place], [place], [address], [place]. tel:[phone] [facility], [address], [place], [place], [address] , [place] tel: [phone] [facility] No Information 200 5 Valeriano Patrick. [address] [facility], [address], [place], [place], [address], [place]. tel: [phone] [facility], [address], [place], [place], [address] , [place] tel: [phone] [facility] ESOPHAGEAL REFLUX 5 Geovanny Sandy. [address], [address], [place], [place], [address], [place]. tel: [phone] [facility], [address], [place], [place], [address] , [place] tel: [phone] [facility] MENOPAUSAL DISORDER NEC 4-200 5 [facility]. [address] [facility], [place], [address], [place]. [facility], [address], [place], [place], [address] , [place] tel: [phone] [facility] ABDMNAL RGDT RT UPR QUAD 200 5 Geovanny Sandy. [address], [address], [place], [place], [address], [place]. tel: [phone] [facility], [address], [place], [place], [address] , [place] tel: [phone] [facility] GENERAL OSTEOARTHROSISL OC PRIM OSTEOART-PELVIS 5-200 5 Geovanny Sandy. [address], [address], [place], [place], [address], [place]. tel: [phone] [facility], [address], [place], [place], [address] , [place] tel: [phone] [facility] ALLERGIC RHINITIS NOS Scar-3 0200 4 Geovanny Sandy. [address], [address], [place], [place], [address], . tel: [phone] [facility], [address], [place], [place], [address] , tel: [phone] [facility] INSOMNIA NOS Jul-2 9200 3 Geovanny Sandy. [address], [address], [place], [place], [address], . tel: [phone] [facility], [address], [place], [place], [address] , tel: [phone] [facility] HEADACHE 0 8-200 2 Geovanny Sandy. [address], [address], [place], [place], [address], [place]. tel: [phone] [facility], [address], [place], [place], [address] , tel: [phone] [facility] URIN TRACT INFECTION NOSDYSURIA 0 1200 1 Geovanny Sandy. [address], [address], [place], [place], [address], [place]. tel: [phone] [facility], [address], [place], [place], [address] , tel: [phone] [facility] MIXED HYPERLIPIDEMIA 0 2-200 1 [facility]. [address] [place] [address], [place], [address], [place]. [facility], [address], [place], [place], [address] , tel: [phone] [facility] DERMATOPHYTOSIS OF BODYPRESCRIP-OR AL CONTRACEPT 3 1-200 0 Geovanny Sandy. [address], [address], [place], [place], [address], . tel:[phone] Family History Family Member Type Diagnosis Age At Onset No Information Immunizations Vaccine Date Status Comments Fluzone High-Dose Trivalent, preservative free administered Source: New Immuniza tion Record RSV (Arexvy), preF, recombinant, adjuvanted vaccine, 120 mcg/0.5 mL administered Note: Lauren'woody ; Source: Other Provider Fluzone High-Dose, high dose , preservative free administered Source: New Immuniza tion Record Moderna COVID19 Vaccine, 0.5 mL per dose, 2 doses, administered 28 days apart administered Note: Shayy Tapia urce: Public Agency Pneumococcal conjugate PCV20 administered Source: New Immunization Record Moderna (Low Dose) COVID19 Vaccine, 0.25mL per dose, booster dose administered Source: Public Agenc y Fluzone High-Dose, high dose , preservative free administered Source: New Immuniza tion Record Moderna COVID19 Vaccine, 0.5 mL per dose, 2 doses, administered 28 days apart administered Source: Public Agenc y Moderna COVID19 Vaccine, 0.5 mL per dose, 2 doses, administered 28 days apart administered Source: Public Agenc y Fluzone High-Dose, high dose , preservative free administered Source: New Immuniza tion Record Fluzone High-Dose, high dose , preservative free administered Note: Given at [facility] ; Source: Public Agency Fluzone High-Dose, high dose , preservative free administered Note: [facility] ; Source: Public Agency SHINGRIX (Zoster vaccine recombinant, adjuvanted) administered Source: Public Agency SHINGRIX (Zoster vaccine recombinant, adjuvanted) administered Source: Public Agency Fluzone High-Dose, high dose , preservative free administered Note: Given @ [facility] ristian ; Source: Other Provider Fluzone Quad 2416-6147, spli t virus, 0.5mL dosage administered Source: New Immuniza tion Record Pneumococcal conjugate PCV 13 administere d Source: New Immunization Record Influenza, injectable, quadrivalent, 0.5mL dosage administered Source: Other Provider influenza, injectable, quadrivalent, (3 years or older) administered Source: Other Provid er Pneumococcal polysaccharide PPV23 administered Source: New Immuniza tion Record influenza, injectable, quadrivalent, (3 years or older) administered Source: New Immuniza tion Record flu (split) (3 yrs or older) administered Source: Public Agency Td (adult) preservative free administered Note: pt had tdap 08-01-2011 ; Source: Other Registry Tdap (Adacel r) administered Source: New Immunization Record Payers Payer name Insurance type Covered constitution party ID Authoriza tion(s) [facility] [employer] PPO MB [id number] [facility] [employer] PPO MB [id number] [facility] [employer] PPO MB [id number] [facility] [employer] PPO MB [id number] [facility] [employer] PPO MB [id number] [facility] [employer] PPO MB [id number] [facility] [employer] PPO MB [id number] [facility] [employer] PPO MB [id number] [facility] CI [id number] [facility] CI [id number] Social History Type Description Quantity Date Captured Comments Sex Female Smoking Status No Information Chief Complaint And Reason For Visit No Information Reason For Referral Reason For Referral No Information Plan Of Treatment Date Type Action Status Goal Dietary manageme nt education, guidance, and counseling completed Goal Dietary manageme nt education, guidance, and counseling completed Goal Dietary manageme nt education, guidance, and counseling completed Goal Dietary manageme nt education, guidance, and counseling completed Goal Dietary manageme nt education, guidance, and counseling completed Goal Dietary manageme nt education, guidance, and counseling completed Goal Dietary manageme nt education, guidance, and counseling completed Goal Dietary manageme nt education, guidance, and counseling completed Goal Dietary manageme nt education, guidance, and counseling completed Goal Dietary manageme nt education, guidance, and counseling completed Goal Dietary manageme nt education, guidance, and counseling completed Goal Dietary manageme nt education, guidance, and counseling completed Goal Dietary manageme nt education, guidance, and counseling completed Goal Dietary manageme nt education, guidance, and counseling completed Goal Dietary manageme nt education, guidance, and counseling completed Referral Ordered: Chest Xray, 2 Views chest ordered Referral Ordered: Stress echo ordered Referral Referred To: George De La Rosa MD [address] [place], [phone] Ordered: Referrals: Orthopedic Surgery. George De La Rosa MD. Evaluation/diagnostic/treatment - Level 3 ordered Referral Referred To: [address] [place], [phone] Ordered: MRI, LOWER JOINT EXTREMITY W/O CONTRAST Right knee ordered Referral Referred To: Physical Therapy [address] [place], [phone] Ordered: Referrals: Physical Therapy. Location: [facility] Therapy [facility]. Evaluation/diagnostic/treatment - Level 3 ordered Referral Ordered: Xray Exam, Hip, Unilat, Two Or Three Views Right hip ordered Referral Ordered: Radiologic Exam, Femur, Unilat, Min Two Views Right femur ordered Referral Ordered: X-RAY EXAM OF KNEE, COMPLETE Right knee ordered Referral Referred To: Dr Manolo Melchor Ordered: Referrals: Otolaryngology. Dr Manolo Melchor. Evaluation/diagnostic/treatment - Level 3 ordered Referral Ordered: Xray Exam, Hips, Bilateral, Two Views ordered Referral Ordered: Hookup of 30 day cardiac event monitor ordered Referral Ordered: X-RAY EXAM OF SHOULDER TWO VIEW Right ordered Referral Ordered: X-RAY EXAM OF SHOULDER TWO VIEW Left ordered Appointment Sara Moody BOOKED Future Order: Radiology Order Xr ay Exam, Hips, Bilateral, Two Views ([id number]), Sent on: Sent History Of Present Illness Encounter Date Complaint History Of Prese nt Illness hpi Patient is a 74 yo female presenting today for a physical.Adult well exam: Pt states she is overall doing well. She is staying as active as she can.HTN: Compliant with medications. Does not report any headaches, blurry vision, dizziness, chest pain, shortness of breath, or palpitations. Exercising, following dietary recommendations.Arthritis: Chronic right knee pain. She is scheduled for a replacement in about a month.GERD: Denies abdominal pain, difficulty swallowing, nausea, vomiting or unintentional weight loss.CKD: Kidney function has been stable. Denies urinary retention, kidney stones or hematuria.This note was created by Mary Anne Cruz, acting as a scribe on behalf of Dr. Yasmine Tate. Patient gives consent for use of scribe. Medicare preventive A Health Ris k Assessment has been performed and reviewed. The patient has not felt depressed and has had interest and pleasure doing things recently. Functional Status: (Functional status has not changed) on 12/31/2024. Cognitive Status: (Cognitive status has not changed) on 12/31/2024. The patient has fallen 1 times in the last year. The fall(s) did not result in injury. Patient's activity level is moderate. Patient exercises 3-4 times/week. The patient has smoke detectors, carbon monoxide detectors in the home. The patient does not have firearms in the home. There is no radon in the patient's home. Patient reports using a seatbelt in vehicles. Relevant history is negative for tobacco use. Screening services were reviewed and updated. fu Fu s/p stress ec ho/holter due to syncope and bradycardia. We cut her metoprolol tab. She has not had any addl bouts. Her holter showed 6 beats SVT otherwise lowest HR 60. Her stress echo was nml.Addl she had flu in Aug, went to at time. Cont to have nagging cough. No fevers/chills. She is planning TKR, required above testing prior. 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 Sig PMH includes HTN, HLD, h/o CVA, obesity, GERD. HTN- cont bp mgmt.. Controlled. No cp, sobHLD- cont zetia, as statin intol. H/o CVA with residual visual field loss. Cont ASA. No statin in presence of myalgiaGERD- cont trigger avoidance and ppi. Sx controlled preop Preop for pendin g rt TKR. 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 She has been feeling well. Sig PMH includes HTN, HLD, h/o CVA, obesity, GERD. Pt reports she has had 4 bouts near syncope over last 3mos. Once while walking dog, once sitting in car, once when she was sitting in chair. She thinks when she was in car that she may have even had LOC. She gets so weak she cannot keep eyes open. No sig dizziness. She wears smart watch. Her avg HR in 40s-70s. She is on BB. HTN- cont bp mgmt.. Controlled. No cp, sobHLD- cont zetia, as statin intol. H/o CVA with residual visual field loss. Cont ASA. No statin in presence of myalgiaObesity- bmi 33GERD- cont trigger avoidance and ppi. Sx controlled PE Chief ComplaintP ain in hips and knee, difficulty in walking due to painHistory Of Present Illness- Sara Moody, 74-year-old female, reports pain in her hips and knee- Pain in the knee has been ongoing, - Reports an incident in January where she overdid her yoga and injured her hamstring- Reports another incident during a trip where she stepped off a bus and felt pain, though she did not hear anything pop- Pain has lessened since the incidents but is still present and causing difficulty in walking- Reports pain in her calf, which started after the incidents- Reports having a dog that is causing her stress Medicare preventive A Health Ris k Assessment has been performed and reviewed. The patient has not felt depressed and has had interest and pleasure doing things recently. Functional Status: (Functional status has not changed) on 07/02/2024. Cognitive Status: (Cognitive status has not changed) on 07/02/2024. The patient has not fallen in the last year. The fall(s) did not result in injury. Patient's activity level is moderate. Patient exercises 3-4 times/week. The patient has smoke detectors, carbon monoxide detectors in the home. The patient does not have firearms in the home. There is no radon in the patient's home. Patient reports using a seatbelt in vehicles. Relevant history is negative for tobacco use. Screening services were reviewed and updated. Chronic Conditions *See Chronic Conditions HPI rt knee Rt leg pain. In January she developed sig pain after stepping off bus in [place]. She was seen here in February with persistent sx. Encouraged to cont ice/nsaids/tyelnol. She had xray knee which showed severe DJD and effusion. PT was ordered. Not helping with pain. She cont to have pain with ambulating. Pain is medial ligament. No overt instability jt acute visit Reporting pain m edial lower thigh x 1 week, after mis stepping off a bus. Denies falling. No swelling, redness/bruising. Using Tylenol/Motrin and ice packs to area. Medicare preventive The patient has not felt depressed and has had interest and pleasure doing things recently. Functional status assessed on 11/20/2022. Cognitive Status: (Cognitive status has not changed) on 12/26/2023. The patient has not fallen in the last year. The fall(s) did not result in injury. Patient's activity level is moderate. Patient exercises 3-4 times/week. The patient has smoke detectors, carbon monoxide detectors in the home. The patient does not have firearms in the home. There is no radon in the patient's home. Patient reports using a seatbelt in vehicles. She has a 1 year old puppy Relevant history is negative for tobacco use. Screening services were reviewed and updated. Chronic Conditions *See Chronic Conditions HPI HPI Sara tracy is a 73-year-old female who presents for Medicare preventive and evaluation of chronic conditions.Adult general medical exam - She is due for laboratory tests today, 12/26/2023. Her physical activity is limited because whenever she tries to walk her dog, the dog is pulling her everywhere which is frustrating for her. She is aware that she needs to ambulate more.Fatigue - The patient experiences fatigue, the cause of which is uncertain, but she reports satisfactory sleep quality. Her mood remains stable. She is uncertain whether her fatigue is attributed to her aging. Major depressive disorder - The patient has a combination of anxiety and depression, which has intermittent fluctuation in severity. She attempts to manage her symptoms through walking and listening to music. She recently acquired a puppy, which she finds beneficial. However, she expresses doubt whether having a dog is good for her or bad. The patient is attempting to discontinue her medications due to intolerance. She has been managing her depression through behavioral modifications. She has previously engaged with a therapist but has since discontinued this practice.Hyperlipidemia - Denies chest pain or claudication. GERD - The patient's acid reflux symptoms have recently recurred. She continues to take pantoprazole daily. Denies abdominal pain, difficulty swallowing, nausea, vomiting or unintentional weight loss.Hypertension - Compliant with medications. Does not report any headaches, blurry vision, dizziness, chest pain, dyspnea, or palpitations. Exercising, following dietary recommendations.Myalgia - The patient experiences aches and pains, for which she takes Tylenol, which provides relief but induces sleepiness. She occasionally becomes too sleepy to the point that she does not do anything but sleep. She also takes 1 Tylenol arthritis extra strength tablet during the day. She denies taking them at bedtime because she needed the medication to manage through her day.Obesity - The patient expresses a desire to lose weight. She has lost 3 pounds. She attributes her fatigue to her weight. She recently went on a trip with her daughter, she felt bad thinking she was slowing her down. Patient encounter Pt presents wi th ringing in ears. No pain. No sinus sx. Denies hearing issuesLt foot pain for last few mos. pain to arch/midfoot with amb. No redness/warmth. Flat feet. Feels she has good shoes. Pt with gfr 58 in October. Had consistently been above 60 prior. Will repeat today. Bp well controlled. Medicare preventive A Health Ris k Assessment has been performed and reviewed. Recently, the patient has felt down, depressed or hopeless and has felt little interest or pleasure in doing things. Functional Status: (Functional status has not changed) on 11/20/2022. Cognitive Status: (Cognitive status has not changed) on 11/20/2022. The ''Up and Go'' test took less than 30 seconds andthe patient does not need help with activities of daily living. The patient is not at risk for falls. The patient has not fallen in the last year. The fall(s) did not result in injury. Patient's activity level is moderate. Patient exercises 3-4 times/week. The patient has smoke detectors, carbon monoxide detectors in the home. The patient does not have firearms in the home. There is no radon in the patient's home. Patient reports using a seatbelt in vehicles. Patient denies recent weight loss. Relevant history is negative for tobacco use. Screening services were reviewed and updated. chronic conditions *See Chronic Conditions [facility] Chronic Conditions *See Chronic Conditions [facility] Chronic Conditions *See Chronic Conditions [facility] Chronic Conditions *See Chronic Conditions [facility] Chronic Conditions *See Chronic Conditions [facility] Chronic Conditions *See Chronic Conditions [facility] Chronic Conditions *See Chronic Conditions [facility] Chronic Conditions *See Chronic Conditions [facility] Chronic Conditions *See Chronic Conditions [facility] Chronic Conditions *See Chronic Conditions [facility] Acute C/o pain R shoul abbey. Both of her shoulders have been bothering her for a long time. Fells like something else is going on in R shoulder over the last month. No injuries. No numbness or tingling in the arm. No specific neck pain, just some tightness. She takes Aleve 1 tab, usually once/day, sometime BID. It does help. No hx x-ray of shoulders. Feels it has gotten a bit worse lately. Reaching and pulling cause the most issues.BMI 36.3, down 1lb from last visit. Chronic Conditions *See Chronic Conditions [facility] Chronic Conditions *See Chronic Conditions [facility] Chronic Conditions *See Chronic Conditions [facility] Functional Status Date Functional Assessmen t No Information Instructions Date Instruction Additional Infor ashley Continue current man agement, encourage exercise as tolerated. Compliant with medications, no side effectsCheck CBC and BMP Related to Hypertensive chronic kidney disease with stage 1 through stage 4 chronic kidney disease, or unspecified chronic kidney disease Pt is in good health overallScheduled for knee replacement in a monthUTD on colonoscopy and mammogramDue for labs today Related to Encntr for general adult medical exam w/o abnormal findings Scheduled for knee r eplacement with Dr. De La Rosa in a monthShe has already had pre-op clearance completed. Stress test results will be sent to office Related to Primary osteoarthritis of right knee Monitor, kidney func tion has been stable. Continue blood pressure and glucose control. Related to CKD stage 3a, GFR 45-59 ml/min Continue PPI, monito r symptoms. Trigger Avoidance Related to Chronic GERD Urinary Incontinence Fall Risk Prevention Giving encouragement to exercise Related to Body mass index (BMI) 33.0-33.9, adult Dietary management e ducation, guidance, and counseling Related to Body mass index (BMI) 33.0-33.9, adult cont ppi, diet mgmt Related to G milton-esophageal reflux disease without esophagitis Cont statin, diet mgmtMonitor Re lated to Mixed hyperlipidemia Holter with lowest H R 60, resolved with cutting BB. 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 She has no fevers/chillsBp well controlledNo cp, sobEKG, labs nml. Recent echo/holter eval was nml. No addl bradycardia since cutting metoprololP. Pt is cleared to proceed with surgery Related to Abnormal MRI, knee Bp controlled on cur rent regimentCnt med, diet mgmtMonitor Related to Essential (primary) hypertension Persistent cough s/p flu in obtain CXRStart pred [id number] 1mo prior to surgery to verify resolved. Related to Cough, unspecified type As above 4 bouts ove r last 3 mos, sig fatigue with sx. Will obtain labs, EKG, stress/holterCut metoprolol 1/2 tabFu 4-6 wks varinder, Related to Near syncope preop pending TKRNo fevers/chillsNO cp, sobBP controlledPt has had mx bouts near sycnope over last few mos. She has smart watch, HR freq in low 40s. Will obtain stress echo, Holter prior to clearanceLabs, EKG todayFu 4-6 wks reassess Related to Abnormal MRI, knee cont med mgmt, diet mgmt Related to Mixed hyperlipidemia cont diet mgmtMonitor Related to Gastro-esophageal reflux disease without esophagitis Bp controlled, but b radycardia at times and near snycopeWill cut metoprolol 1/2 tab, fu 4-6 wks varinder Related to Essential (primary) hypertension HR 40s-70s with near sycnope. Will cut metoprolol 50mg dailyFu 6 wks s/p stress echo and holter Related to Bradycardia cont diet mgmt Related to Obesi ty, unspecified Cont asa, lipid mgmt Related to Personal history of transient ischemic attack (TIA), and cerebral infarction without residual deficits Disease process Patient has appointm ent with Dr. Fernandez also have him eval her right calf painmonitor Related to Abnormal MRI, knee Patient is in fairly good health overallUTD on colon cancer screening, BMD and mammogramDue for labs Related to Adult general medical exam Patient does have el evated lipids, however she is intolerant of statins due to myalgias Related to Myalgia, unspecified site Continue PPI, monito r symptoms. Trigger Avoidance Related to Gastro-esophageal reflux disease without esophagitis Intolerant of statinsOn zetiamon itor Related to Mixed hyperlipidemia Continue current man agement, encourage exercise as tolerated. Compliant with medications, no side effectsCheck CBC and BMP Related to Essential (primary) hypertension Counseled on weight reduction Dietary management e ducation, guidance, and counseling Related to Body mass index (BMI) 34.0-34.9, adult Giving encouragement to exercise Related to Body mass index (BMI) 34.0-34.9, adult Counseled on dietary changes Persistent rt knee p ain s/p injury January after a misstep. No improvement with nsaids, tyelnol or PT. Pain to medial aspect rt knee. Tenderness. Xray also with severe DJD knee. p. Discussed options. Will manage DJD with inj. Triamcinolone 40mg inj. Magnus wrap, iceWIll obtain MRI given persistent sx r/o tearMay cont tylenol/nsaids, ice Related to Right medial knee pain Disease process Reports posterior ri ght leg pain, medially, above knee noted after mis step off bus. No swelling, redness/bruising, no tenderness on palpation. AROM. Plan continue Tylenol as needed for pain, ice, magnus wrap, rest. Follow up if continued. Related to Leg pain, right Continue working on diet and exercise.This note has been created using [employer] and was completed in the EHR by Ma. Mya Tinajero. Related to Obesity, unspecified Continue current man agement, encourage exercise as tolerated. Compliant with medications, no side effects.Check CBC and BMP. Related to Essential (primary) hypertension The patient is intol erant of all statins, specifically EZETIMIBE, which will be monitored. Related to Myalgia, unspecified site She has intolerance to statins, specifically EZETIMIBE. A lipid panel will be conducted. Related to Mixed hyperlipidemia Continue proton pump inhibitor, monitor symptoms. Trigger Avoidance.I recommended adding Pepcid to her pantoprazole intake if she is experiencing severe acid reflux. Related to Gastro-esophageal reflux disease without esophagitis She has discontinued bupropion due to side effects. She has also been intolerant of multiple SSRIs. She is also in the process of weaning off BuSpar. She has previously consulted a therapist, but currently manages her depressive symptoms through exercise. Her condition will continue to be monitored. Related to Major depressive disorder, recurrent, unspecified The patient has been experiencing increased fatigue, feeling fatigued throughout the day, which is causing significant frustration. A Complete Blood Count (CBC), Comprehensive Metabolic Panel (CMP), and Thyroid Stimulating Hormone (TSH) tests will be conducted today, 12/26/2023, to assess her condition. Additionally, her Vitamin D levels will be assessed. Related to Other fatigue The patient's overal l health status is satisfactory, having recently acquired a puppy who is now 1 year old. This puppy has proven beneficial in maintaining her active lifestyle. The patient is advised to incorporate more walks into her weekly routine.She is due for laboratory tests today, 12/26/2023, and is current with her vaccinations. Related to Adult general medical exam Giving encouragement to exercise Related to Body mass index (BMI) 33.0-33.9, adult Counseled on weight reduction Urinary Incontinence Counseled on dietary changes Dietary management e ducation, guidance, and counseling Related to Body mass index (BMI) 33.0-33.9, adult Fall Risk Prevention GFR slight elevation 3mos prior. BP well controlledRepeat bmp Related to Essential (primary) hypertension Ranjith ears. No pain, s x x few mos. Discussed white noise, ear plugs Refer ENT Related to Tinnitus, unspecified laterality Lt foot pain midfoot , arch. Flat feet. Stressed importance good foot wear. She has stomach irritation to ibuprofen and aleve but no other SE. Rash to Etodlac. Discussed options, will trial mobic 7.5mg daily, stop if rash develops Related to Left foot pain Disease process Continue PPI, monito r symptoms. Trigger Avoidance Related to Gastro-esophageal reflux disease without esophagitis Continue bupropion o ff of trazodone i t was not helping her at all. She follows regularly with psychiatry and also with a support group - she is still grieving the loss of her monitor Related to Major depressive disorder, recurrent, unspecified patient is intoleran t of statins she continues to work on diet and exercise continue Zetia 10 mg/day check lipid panel Related to Mixed hyperlipidemia Continue current man agement, encourage exercise as tolerated. Compliant with medications, no side effectsCheck CBC and CMP Related to Essential (primary) hypertension Patient is in good h ealthShe is working on diet and exercise. Her son lives with herUTD on mammogramUTD on bone densityUTD on colonoscopyDue for labs Related to Adult general medical exam Disease process Dietary management e ducation, guidance, and counseling Related to Body mass index (BMI) 33.0-33.9, adult Counseled on weight reduction Counseled on dietary changes Giving encouragement to exercise Related to Body mass index (BMI) 33.0-33.9, adult Continue PPI, monito r symptoms. Trigger Avoidance Related to Gastro-esophageal reflux disease without esophagitis Discussed her stress and depressionDC fluoxetine - she is not tolerating wellStart trazodone 25 mg qHS to help with moods and sleepWill refer for counseling to help her manage the stress and depression related to her grandson's medical conditionsMonitor Related to Major depressive disorder, recurrent, unspecified Intolerant of all [facility] zetiaChe Lipid panel Related to Mixed hyperlipidemia Continue current man agement, encourage exercise as tolerated. Compliant with medications, no side effectsCheck CBC, BMP Related to Essential (primary) hypertension Disease process Hypertension. no med ication side effect.O; lungs--clear, no rales or wheezes. heart--regular rate and rhythm, no murmurs, clicks, or rubs. neck--no bruits extremities--no edema, good pulses in feet.A: good BP controlp continue meds Related to Essential (primary) hypertension she has had bilatera l lower back pain for weeks.no fall or injuryis taking tramadol with some relief.P; advised doing some back exercises, which were handed out to her.call if no improvement after a couple weeks. Related to Lumbar pain Moods are doing well on fluoxetineHowever, she does get periodic hot flashesShe does not want to discontinue medication. Related to Major depressive disorder, recurrent, unspecified Continue PPI, monito r symptoms. Trigger Avoidance Related to Gastro-esophageal reflux disease without esophagitis intolerant of all st atinsContinue zetiaChecl lipid panel Related to Mixed hyperlipidemia Patient does have el evated lipids, however she is intolerant of statins due to myalgias Related to Myalgia, unspecified site Continue current man agement, encourage exercise as tolerated. Compliant with medications, no side effectsCheck CBC, bMP Related to Essential (primary) hypertension Urinary Incontinence Giving encouragement to exercise Related to Body mass index (BMI) 34.0-34.9, adult Fall Risk Prevention Dietary management e ducation, guidance, and counseling Related to Body mass index (BMI) 34.0-34.9, adult Disease process Pt is now on ZetiaCheck lipid pa belen Related to Mixed hyperlipidemia Responding better to fluoxetine 20 mgContinue current doseMonitorFollow up in 3 months Related to Major depressive disorder, recurrent, unspecified BP improvedContinue lisinopril and metoprololMonitor Related to Essential (primary) hypertension Giving encouragement to exercise Related to Body mass index (BMI) 34.0-34.9, adult Dietary management e ducation, guidance, and counseling Related to Body mass index (BMI) 34.0-34.9, adult Disease process BP elevated todayInc rease metoprolol to 100 mg per dayFollow up in 4 weeks for recheckPossible medication side effect, may be able to go back to original dosing of metoprolol after she has been off of duloxetine for a while. Related to Essential (primary) hypertension at the end of May, she is currently living with her daughter. She is working through her grief, she is going to call the [facility] to set up grief counselingDiscontinue duloxetine. Start fluoxetine 40 mg qHSFollow up in 4 weeksMonitor. Related to Major depressive disorder, recurrent, unspecified Dietary management e ducation, guidance, and counseling Related to Body mass index (BMI) 34.0-34.9, adult Disease process Giving encouragement to exercise Related to Body mass index (BMI) 34.0-34.9, adult Increasing dose on d uloxetineWill also give Rx for tramadol as neededPt has a lot of trouble getting around, due to pain.Monitor Related to Bilateral primary osteoarthritis of hip Increase duloxetine to 40 mg for 2 weeks, then increase again to 60mgMonitor.Status: Not meeting treatment plan goals. Goals: Your goal is journaling. Barriers: No barriers to goal achievement have been identified. Related to Major depressive disorder, recurrent, unspecified Giving encouragement to exercise Related to Body mass index (BMI) 34.0-34.9, adult Dietary management e ducation, guidance, and counseling Related to Body mass index (BMI) 34.0-34.9, adult Disease process Discussed her medica tionWill stop lexapro, switch to duloxetine 20 mg per dayFollow up in 4 weeksMonitor Related to Major depressive disorder, recurrent, unspecified Check XR hipsWould r ecommend PT currently, but she doesn't have time because of her 's illnessMonitor. Related to Bilateral primary osteoarthritis of hip Continue current man agement, encourage exercise as tolerated. Compliant with medications, no side effects Related to Essential (primary) hypertension Giving encouragement to exercise Related to Body mass index (BMI) 35.0-35.9, adult Dietary management e ducation, guidance, and counseling Related to Body mass index (BMI) 35.0-35.9, adult Disease process Statin intolerant. S tart ezetimibe, monitor. Related to Myalgia, unspecified site Continue current man agement, encourage exercise as tolerated. Compliant with medications, no side effectsCheck CBC, BMP Related to Essential (primary) hypertension Intolerant of statin sStart ezetimibe. Monitor Related to Mixed hyperlipidemia Sustained visual los s in left eyeDiscussed treatment options. Start daily Aspirin 81 mg. Patient is intolerant of statins - start Ezetimibe 10 mg per dayWill also check 30 day event monitor to rule out Atrial FibrillationMonitor Related to Other sequelae following unspecified cerebrovascular disease Pt has persistent de ficits in her left eye.Discussed treatment options. Start daily Aspirin 81 mg. Patient is intolerant of statins - start Ezetimibe 10 mg per dayWill also check 30 day event monitor to rule out Atrial Fibrillationfollow up in 3 months. Related to Personal history of transient ischemic attack (TIA), and cerebral infarction without residual deficits Giving encouragement to exercise Related to Body mass index (BMI) 36.0-36.9, adult Disease process Urinary Incontinence Fall Risk Prevention Dietary management e ducation, guidance, and counseling Related to Body mass index (BMI) 36.0-36.9, adult Crepitus with ROM of right shoulder. Ligaments are in tact.Kenalog injection performed in office. Patient tolerated well. She will call in a few weeks with an update. Related to Primary osteoarthritis, right shoulder Continue PPI, monito r symptoms. Trigger Avoidance Related to Gastro-esophageal reflux disease without esophagitis Continue current man agement, encourage exercise as tolerated. Compliant with medications, no side effectsCheck cbc, bmp Related to Essential (primary) hypertension Giving encouragement to exercise Related to Body mass index (BMI) 36.0-36.9, adult Dietary management e ducation, guidance, and counseling Related to Body mass index (BMI) 36.0-36.9, adult Disease process C/o ongoing L should er pain, though not as notable as R shoulder pain, not as painful to raise arm overhead or reach behind back.P:Handout on stretchesAleve 1 tab BID x 2 week then PRNF/u if no improvement or worsening symptoms Related to Left shoulder pain, unspecified chronicity Down 1lb.P:Healthy diet encourag ed Related to Body mass index (BMI) 36.0-36.9, adult C/o pain R shoulder, worse over the last month, no injury. Mild crepitus. Taking Aleve PRN. Discomfort raising arm overhead, reaching behind back. No neck pain, numbness, tingling, swelling, decreased strength. Discussed conservative tx.P:X-ray R shoulderAleve 1 tab BID x 7 days then PRNHandout on stretchesHot compresses PRNDeclines PT at this time, concerned about COVID-19F/u if no improvement or worsening symptoms, discussed further imaging as next possible steps Related to Right shoulder pain, unspecified chronicity Dietary management e ducation, guidance, and counseling Related to Body mass index (BMI) 36.0-36.9, adult Handout Giving encouragement to exercise Related to Body mass index (BMI) 36.0-36.9, adult Discussed her meds. COntinue daily PPI, okay to take pepcid or tums for break through symptoms.Discuss with eye doctor if she can discontinue Doxycycline - she is taking for chronic rash suppression on her eyelids.Avoids NSAIDS as able. Related to Gastro-esophageal reflux disease without esophagitis Continue lexapro, mo ods are controlledSome anxiety related to being out in public and COVID. She is doing okay, will let me know if she starts to get into trouble Related to Major depressive disorder, recurrent, unspecified Continue current man agement, encourage exercise as tolerated. Compliant with medications, no side effectsCheck cbc, cmp Related to Essential (primary) hypertension Monitor cholesterol off of stati n. Related to Myalgia, unspecified site Continue to watch di et, exercise. Pt is intolerant of statins. Related to Mixed hyperlipidemia Disease process Giving encouragement to exercise Related to Body mass index (BMI) 36.0-36.9, adult Dietary management e ducation, guidance, and counseling Related to Body mass index (BMI) 36.0-36.9, adult Monitor. Work on exe rcise, diet. No statin due to myalgias. Related to Mixed hyperlipidemia Continue PPI, monito r symptoms. Trigger Avoidance Related to Gastro-esophageal reflux disease without esophagitis Continue with lexapr o. Patient also does yoga daily which helps with her symptoms. Monitor. Related to Major depressive disorder, recurrent, unspecified Monitor. Patient neto l do better with her diet. Unable to tolerate statin due to myalgias. Related to Myalgia, unspecified site Continue current man agement, encourage exercise as tolerated. Compliant with medications, no side effects. check cbc, bmp Related to Essential (primary) hypertension Disease process Giving encouragement to exercise Related to Body mass index (BMI) 36.0-36.9, adult Dietary management e ducation, guidance, and counseling Related to Body mass index (BMI) 36.0-36.9, adult check A1c Related to Yousif shoemaker for diabetes mellitus stay off of statins. monitor. Re lated to Other specified health status Continue yoga, exerc ise. NSAIDS as needed for pain. monitor. Related to Bilateral primary osteoarthritis of hip Monitor. intolerant of statins. check lipid panel. Related to Mixed hyperlipidemia Continue current man agement, encourage exercise as tolerated. Compliant with medications, no side effects. check cbc, bmp Related to Essential (primary) hypertension Continue PPI, monito r symptoms. Trigger Avoidance Related to Gastro-esophageal reflux disease without esophagitis Monitor, continue le xapro. Discussed support groups and potential therapy options. PAtient wants to think about it, she will reach out if interested. Related to Major depressive disorder, recurrent, unspecified Dietary management e ducation, guidance, and counseling Related to Body mass index (BMI) 36.0-36.9, adult Giving encouragement to exercise Related to Body mass index (BMI) 36.0-36.9, adult Disease process Assessments Type Assessment Date No Information Patient Care Teams Name Effective Dates (start - stop) Status Members No Information
--- OUTSIDE RECORDS SUMMARY | 2025-02-08 03:28 | XMS_ITS | CONTINUITY OF CARE DOCUMENT ---
Author Name nathaly andersen Address Unknown Organization [facility] Address [address] [place] [address] Phone [phone] Care Team Providers Care Legal Administrator Name Role Phone Juan F MOJICA, Suri Unavailable [phone] PATTI DO, KAZ Unavailable [phone] PATTI DO, KAZ Unavailable [phone] PROBLEMS Condition Status Date Provider Notes Dizziness active Jhon Salas INSURANCE PROVIDERS Payer name Policy type / Coverage type [employer] ID [id number] GRP MEDICARE ADVANTAGE PLAN (PPO) Medicare [id number] TREATMENT PLAN Date Name Stress Echo HISTORY OF PROCEDURES Procedure Date Procedure Name Provider Procedure Notes S stephanie Mobile Cardiac Telem etry - Tech Omar Martinez MD completed Mobile Cardiac Telem etry - Prof Omar Martinez MD completed
--- OUTSIDE RECORDS SUMMARY | 2025-02-08 03:28 | XMS_ITS | Clinical Summary ---
Author Organization [facility] Address [address] [place] [address] Care Team Providers Care Online Marketing Analyst Name Role Phone Du Small MD Primary Care Provider [phone] Source Comments [facility] and [facility]ician Practices is amultiple site organization consisting of ambulatory clinics and hospital sitesin [place], [place], [place] and [place]. This disclosure is being madepursuant to the Care Everywhere program and may not contain all information available regarding this patient. 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 Gender Identity Not on file Sexual Orientation Not on file Last Filed Vital Signs Vital Sign Reading Time Taken Comments Blood Pressure 172/95 08/13/2015 11:29 AM OVERHEAD CLEANER Pulse 81 08/13/2015 11:29 AM OVERHEAD CLEANER Temperature 37.3 C (99.2 F) 08/13/2015 11:29 AM OVERHEAD CLEANER Respiratory Rate 18 08/13/2015 11:29 AM OVERHEAD CLEANER Oxygen Saturation 98% 08/13/2015 11:29 AM OVERHEAD CLEANER Inhaled Oxygen Concentration - - Weight 95.3 kg (210 lb) 08/13/2015 11:29 AM OVERHEAD CLEANER Height 162.6 cm (5' 4.02) 08/13/2015 11:[address] Body Mass Index 36.03 08/13/2015 11:29 AM OVERHEAD CLEANER Plan of Treatment Health Maintenance Due Date [...] patient's age to complete this topic Insurance [employer] Care Teams Online Marketing Analyst Relationship Specialty Start Date End Date Du Small MD PCP - General Internal Medicine 12/30/13
--- OUTSIDE RECORDS SUMMARY | 2025-02-08 03:28 | XMS_ITS | Encounter Summary ---
Author Organization [facility] Address [address] [place] [address] Care Team Providers Care Private Tutors And Teachers Name Role Phone Du Small MD Primary Care Provider [phone] Encounter Details Date Type Department Care Team (Late st Contact Info) Description 02/17/2014 Therapy Visit [facility] [id number] [place] [address] [place] [id number] Russell Marte MD [address] [place] [address] Social History Tobacco Use Types Packs/Day Years Used Date Smoking Tobacco: Never Alcohol Use Standard Drinks/Week Comments Yes 0 (1 standard drink = 0.6 oz pur e alcohol) Comments Unknown Sex and Gender Information Value Date Recorded Sex Assigned at Not on file 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
--- OUTSIDE RECORDS SUMMARY | 2025-02-08 03:28 | XMS_ITS | Clinical Summary ---
Author Organization [facility] Address [address] [place] [address] Care Team Providers Care Community Resource Consultant Name Role Phone Yasmine Caruso DO Primary Care Provider [phone] Allergies Active Allergy Reactions Criticality Noted Date Comments Etodolac Hives Medium 12/30/2013 Sulfa (Sulfonamide Antibiotics) Rash Medium Medications flaxseed oil 1,000 mg capsule Take 1 capsule (1,000 mg total) by mouth 2 (two) times a day Active fluticasone (FLONASE) 50 mcg/actuation nasal spray Administer 1 spray into each nostril as needed 8 Active furosemide (LASIX) 20 mg tabletIndicatio ns:hypertension Take 1 tablet (20 mg total) by mouth administrator before breakfast 8 Active lisinopril (PRINIVIL,ZESTR IL) 40 mg tablet Take 1 tablet (40 mg total) by mouth administrator before breakfast [address] (PROTONIX) 40 mg EC tabletIndicatio ns:Treatment of Non-Bleeding Gastric Disorder Take 1 tablet (40 mg total) by mouth nightly 8 Active multivitamin capsule Take 1 capsule by mouth administrator before breakfast Active acetaminophen (TYLENOL) 500 mg tablet Take 2 tablets (1,000 mg total) by mouth every 6 (six) hours as needed for pain Active hyoscyamine (LEVSIN) 0.125 mg tablet Take 1 tablet (0.125 mg total) by mouth as needed 0 Active aspirin 81 mg enteric coated tablet Take 1 tablet (81 mg total) by mouth every morning Active ezetimibe (ZETIA) 10 mg tablet Take 1 tablet (10 mg total) by mouth every morning 1 Active ropivacaine (NAROPIN) 5 mg/mL (0.5 %) injection 1.6 mL (8 mg total) Active triamcinolone (Kenalog) 10 mg/mL injection Kenalog 10 mg/mL suspension for injection In office injection administered by the provider Active albuterol HFA (PROVENTIL HFA,VENTOLIN HFA,PROAIR HFA) 90 mcg/actuation inhaler 2 puffs every 4 (four) hours as needed 5 Active latanoprost (XALATAN) 0.005 % ophthalmic solutionIndicat ions:OHT (ocular hypertension), bilateral Administer 1 drop into both eyes nightly 7.5 mL 3 5 Active timolol (TIMOPTIC) 0.5 % ophthalmic solution Administer into both eyes 2 (two) times a day 15 mL 11 5 Active loteprednol (LOTEMAX) 0.5 % drops,gel Administer 1 drop into both eyes daily 10 mL 3 5 Active moxifloxacin (VIGAMOX) 0.5 % ophthalmic solution Administer 1 drop into the left eye 2 (two) times a day 3 mL 11 5 Active metoprolol XL (TOPROL-XL) 50 mg extended release tablet 5 Active Hospital, Clinic, or Other Facility Administered Medication Ordered Dose Route Frequency Start Date End Date Status aflibercept syringe (EYLEA HD) 8 mg/0.07 mL intra-ocular injection 8 mgIndications:Centra l retinal vein occlusion with macular edema of left eye (HCC) 8 mg One-Time Injection 02/04/2025 02/04/2025 Ended Active Problems Problem Noted Date Diagnosed Date Meibomian gland dysfunction (MGD) of upper and lower lids of both eyes 11/10/2023 Assessment & Plan (11/10/2023 10:52 AM CDT): Recommend hot compresses bid. Dizziness 01/24/2021 Visual field loss following stroke 01/15/2021 Cataract OD / s/p CE/IOL OD (05/23/21) 01/11/2021 Assessment & Plan (01/03/2022 3:41 PM CDT): stable Assessment & Plan (07/05/2021 3:08 PM [employer]): Month 1.5 Doing well, SR at last [...] of left eye 12/25/2020 Assessment & Plan (12/07/2024 9:53 AM CDT): Status post (s/p) CARMEL 12/03 [place] neovascularization of the disc (NVD) Follows with Dr. MCCALLUM (next 01/2025) Assessment & Plan (03/04/2023 1:53 PM CDT): [...] (ocular hypertension), bilateral 11/09/2020 Assessment & Plan (12/07/2024 9:50 AM CDT): IOPs adequate for optic nerve (ON)/visual field (VF) CPM Assessment & Plan (11/10/2023 10:51 AM CDT): [...] SM OU QID RTC IOP check 4wks Osteoarthritis of right shoulder 07/14/2020 Recurrent major depression 01/10/2020 Myalgia due to statin 07/12/2019 Superior limbic keratoconjunctivitis 05/25/2019 Assessment & Plan (12/07/2024 9:52 AM CDT): She has decreased FML to daily both eyes (OU) She is still quite symptomatic left eye (OS), ok to increase to BID left eye (OS) until seen by Dr. Nicolas, Cont daily OD Assessment & Plan (11/10/2023 10:50 AM CDT): [...] yr Assessment & Plan (07/05/2021 3:08 PM [employer]): With irritation OS, LG uptake of superior conj. Increase LTX QID OS, continue BID OD Assessment & Plan (11/09/2020 2:13 PM CDT): OD >> OS Assessment & Plan (05/25/2019 9:34 AM CDT): OD 3+ SPK Add back prednisolone acetate OD q.i.d. P.r.n. s/p CE/PCIOL OS (05/19/19) 05/13/2019 Overview (05/13/2019): Added automatically from request for surgery [id number] Assessment & Plan (05/29/2021 9:25 AM CDT): jostin Assessment & Plan (03/23/2020 3:44 PM CDT): Jostin CTM Assessment & Plan (10/07/2019 9:45 AM [employer]): Jostin CCM Assessment & Plan (06/24/2019 10:19 [...] OS Start Levobunolol 1gtt BID OS Follow-up: [facility] for post-op week 1 visit Irritable bowel syndrome 07/06/2018 Corneal abrasion, left 04/02/2018 Assessment & Plan [...] prior. 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 Assessment & Plan (12/07/2024 9:51 AM CDT): Multiple filaments removed with cotton tip OS Emycin nightly for 1 weeks the stop Cont Systane eyedrops, QID today Assessment & Plan (01/03/2022 3:45 PM CDT): [...] of skin 04/27/2015 Right ankle pain 12/30/2013 Obesity 12/08/2012 Hypertension 08/29/2009 Gastroesophageal reflux disease 05/28/2005 Hyperlipidemia 06/24/2000 KCS (keratoconjunctivitis sicca) Assessment & Plan (01/03/2022 [...] conjunctiva Assessment & Plan (10/07/2019 10:01 AM [employer]): Today with 4+ SPK superiorly OD, tr [...] mos Assessment & Plan (10/27/2018 9:13 AM [employer]): POV 6 weeks s/p superior conjunctival resection OS 09/16/18 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 - Doing well - Decrease prednisolone to QID OS - continue lotemax ointment QHS OS until out RTC 2 months Assessment & Plan (09/22/2018 9:46 AM [employer]): POV week 1 s/p superior conjunctival resection OS 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 - Doing well - stop tobradex QID - increase prednisolone to 6x/day OS - continue lotemax ointment QHS OS - RTC 1 mo Assessment & Plan (09/16/2018 6:19 PM [employer]): POV day 1 s/p superior conjunctival resection [...] week Assessment & Plan (07/30/2018 3:07 PM [employer]): No significant improvement on PF hydrocortisone, After [...] Superior limbic keratoconjunctivitis 05/25/2019 05/25/2019 Lenticular sclerosis 10/31/201516/2 019 Encounters Date Type Department Care Team Description 02/04/2025 11:00 AM CDT Office Visit [facility] Ophthalmology [address] [address] [facility], [address] [place] [phone] Aj Bender MD Central retinal vein occlusion with macular edema of left eye (HCC) (Primary Dx) 01/07/2025 9:45 AM CDT Office Visit [facility] Ophthalmology [address] [place] [phone] Julio Nicolas MD SLK s/p sup conj resection OS (09/16/18) (Primary Dx); Filamentary keratitis of both eyes 12/24/2024 9:45 AM CDT Office Visit [facility] Ophthalmology [address] [place] [phone] Julio Nicolas MD Filamentary keratitis of both eyes (Primary Dx); SLK s/p sup conj resection OS (09/16/18); OHT (ocular hypertension), bilateral 12/07/2024 9:00 AM CDT Imaging Exam [facility] Ophthalmology [address] [place] [phone] OHT (ocular hypertension), bilateral 12/07/2024 8:50 AM CDT Imaging Exam [facility] Ophthalmology [address] [place] [phone] OHT (ocular hypertension), bilateral 12/07/2024 8:45 AM CDT Office Visit [facility] Ophthalmology [address] [place] [address], [address] [place] [phone] Marisol Santos, OD OHT (ocular hypertension), bilateral (Primary Dx); Filamentary keratitis of both eyes; SLK s/p sup conj resection OS (09/16/18); Cataract OD / s/p CE/IOL OD (05/23/21) 12/03/2024 1:00 PM CDT Procedure visit [facility] Ophthalmology [address], [address] [place] [phone] Aj Bender MD Central retinal vein occlusion with macular edema of left eye (HCC) (Primary Dx) 11/16/2024 3:45 PM CDT Office Visit [facility] Ophthalmology [address], [address] [place] [address] Julio Nicolas MD Superior limbic keratoconjunctivitis (Primary Dx) 11/11/2024 Telephone [facility]hthalmology [address] [place] [address] Julio Nicolas MD worsening symptoms 11/08/2024 3:00 PM CDT Office Visit [facility] [address] [phone] Yue Jansen NP Blepharitis of left upper eyelid, unspecified type (Primary Dx) from Last 3 Months Surgical History Surgery [...] (gastroesophageal reflux disease) Cancer (HCC) Rosacea Hypertension Hyperlipidemia 06/24/2000 Family History Medical History Relation Name Comments [...] on file Legal Sex Female 7:44 AM [employer] Gender Identity Female 12/08/2020 10:17 AM CDT [...] 2:57 PM CDT Height 162.6 cm (5' 4) 05/23/2021 11:14 AM CDT Body Mass Index [...] 05/27/2024, 06/07/2019 Medical Devices Implanted Type Area Chicken Dresser Device Identifier Shelf Expiration Date Model / Serial / Lot [employer] [id number].210 Acrysof Iq Natural Stableforce Acrysert 6mm 13mm 1 Piece Foldable - [id number] - [id number] Implanted:Qty: 1 on 05/19/2019 by Juventino Carcamo MD at [facility] Lens Left: Eye [employer] [id number] 11/23/2023 SN60WF.21 0 / [id number] / 0 [employer] [id number].190 Acrysof Iq Natural Stableforce Acrysert 6mm 13mm 1 Piece Foldable - [id number] - [id number] Implanted:Qty: 1 on 05/23/2021 by Juventino Carcamo MD at [facility] Lens Right: Eye [employer] [id number] 11/25/2025 SN60WF.19 0 / [id number] / 0 Procedures Procedure Name Priority Date/Time Associated Diagnosis Comments INTRAVITREAL INJECTION, PHARMACOLOGIC AGENT - OS - LEFT EYE Routine 02/04/2025 5:19 PM CDT Central retinal vein occlusion with macular edema of left eye (HCC) OCT, RETINA - OU - BOTH EYES Routine 02/04/2025 11:46 AM CDT Central retinal vein occlusion with macular edema of left eye (HCC) FOREIGN BODY REMOVAL, CORNEA - OD - RIGHT EYE Routine 12/07/2024 10:25 AM CDT Filamentary keratitis of both eyes OCT, OPTIC NERVE - OU - BOTH EYES Routine 12/07/2024 9:31 AM CDT OHT (ocular hypertension), bilateral FINCH VISUAL FIELD - OU - BOTH EYES Routine 12/07/2024 9:31 AM CDT OHT (ocular hypertension), bilateral FOREIGN BODY REMOVAL, CORNEA - OS - LEFT EYE Routine 12/07/2024 8:45 AM CDT Filamentary keratitis of both eyes INTRAVITREAL INJECTION, PHARMACOLOGIC AGENT - OS - LEFT EYE Routine 12/03/2024 3:59 PM CDT Central retinal vein occlusion with macular edema of left eye (HCC) OCT, RETINA - OU - BOTH EYES Routine 12/03/2024 1:57 PM CDT Central retinal vein occlusion with macular edema of left eye (HCC) from Last 3 Months Results * Intravitreal Injection, Pharmacologic Agent - OS - Left Eye (02/04/2025 5:19 PM CDT) Anatomical Region Laterality Modality Head Other Narrative 02/04/2025 5:19 PM CDT Time Out Informed consent was obtained after all risks, benefits and alternatives were explained to the patient. The patient understood, agreed and wished to proceed. Timeout was completed verifying the patient, procedure, laterality and allergies. Anesthesia Subconjunctival anesthesia was used. Anesthetic medications included Lidocaine 2%, Proparacaine 0.5%. The manufacture of the medication is [employer]. Intravitreal Injection, Pharmacologic Agent Preparation included 5% betadine to ocular surface. A 30 gauge needle was used. Pharmaceutical Medication: 8 mg aflibercept syringe 8 mg/0.07 mL Route: intravitreal, Site: Left Eye ND: [id number], Lot: [id number], Expiration date: 07/24/2025, Waste: 0 mL Medication Billing The medication administered today will not be billed to the patient or insurance. The medication administered today was a sample. The patient will not be utlizing the patient assistance program. Post-op Post injection exam found visual acuity is at least hand motion. there were no complications during today's treatment. The patient received written and verbal post procedure care education. Post injection medications were not given. The attending physician was present for the entire procedure. Notes Consented patient for BEAN OS 08/20/2024 EyleaHD sample used today 02/04/2025.iM Aj Bender MD OPHTH CLINIC PROCEDURES Fi nal Result * OCT, Retina - OU - Both Eyes (02/04/2025 11:46 AM CDT) Anatomical Region Laterality Modality Head Optical Coherenc e Tomography Narrative 02/04/2025 11:46 AM CDT Right Eye Quality was good. Scan locations included subfoveal. Progression has no prior data. Left Eye Quality was good. Scan locations included subfoveal. Progression has no prior data. Notes OD: no CME, no VMA (no interval change) OS: CME+, but improved Aj Bender MD OPHTH TOMOGRAPHY Final Res ult * Foreign Body Removal, Cornea - OD - Right Eye [id number] (12/07/2024 10:25 AM CDT) Anatomical Region Laterality Modality Head Other Narrative 12/07/2024 10:25 AM CDT OMIT - entered in error - EWELINA Marisol Posadaiam OD OPHTH CLINIC PROCEDURES Ed ited Result - Final * OCT, Optic Nerve - OU - Both Eyes (12/07/2024 9:31 AM CDT) RNFL OS 70 micrometers CONTINUUM RNFL OD 91 micrometers CONTINUUM Anatomical Region Laterality Modality Head Other Narrative 12/07/2024 10:22 AM CDT Right Eye Reliability was good. Temporal thickness was normal. Superior thickness was normal. Nasal thickness was normal. Inferior thickness was normal. Average RNFL thickness 91 micrometers. Left Eye Reliability was good. Temporal thickness was normal. Superior thickness was showing abnormal thinning. Nasal thickness was normal. Inferior thickness was showing abnormal thinning. Average RNFL thickness 70 micrometers. Notes Normal right eye (OD), stable global thickness left eye (OS) (prior central retinal vein occlusion (CRVO)) Marisol Santos OD OPHTH TOMOGRAPHY Final Res ult * Finch Visual Field - OU - Both Eyes (12/07/2024 9:31 AM CDT) Pattern Deviation OS 2.45 dB CONTINUUM Pattern Deviation OD 1.50 dB CONTINUUM Mean Deviation OS -2.60 dB CONTINUUM Mean Deviation OD 0.36 dB CONTINUUM Anatomical Region Laterality Modality Head Other Narrative 12/07/2024 10:23 AM CDT Right Eye Fixation was good. Cooperation was good. Reliability was good. Foveal threshold was normal. Findings include normal observations. Mean Deviation was 0.36 dB. Pattern Deviation was 1.50 dB. Left Eye Fixation was good. Cooperation was good. Reliability was good. Foveal threshold was normal. Findings include non-specific defects. Mean Deviation was -2.60 dB. Pattern Deviation was 2.45 dB. Result [facility] Marisol Santos OPH VISUAL FIELD Final R esult * Foreign Body Removal, Cornea - OS - Left Eye [id number] (12/07/2024 8:45 AM CDT) Anatomical Region Laterality Modality Head Other Narrative 12/16/2024 2:42 PM CDT Time Out Informed consent was obtained after all risks, benefits and alternatives were explained to the patient. The patient understood, agreed and wished to proceed. Timeout was completed verifying the patient, procedure, laterality and allergies. Foreign Body Removal Topical anesthesia was used during this procedure. Post-op the patient tolerated the procedure. there were no complications during today's treatment. Notes Multiple filaments removed with cotton swab Result [facility] Marisol Santos OPH CLINIC PROCEDURES Fi nal Result * Intravitreal Injection, Pharmacologic Agent - OS - Left Eye (12/03/2024 3:59 PM CDT) Anatomical Region Laterality Modality Head Other Narrative 12/03/2024 3:59 PM CDT Time Out Informed consent was obtained after all risks, benefits and alternatives were explained to the patient. The patient understood, agreed and wished to proceed. Timeout was completed verifying the patient, procedure, laterality and allergies. Anesthesia Subconjunctival anesthesia was used. Anesthetic medications included Lidocaine 2%, Proparacaine 0.5%. The manufacture of the medication is [employer]. Intravitreal Injection, Pharmacologic Agent Preparation included 5% betadine to ocular surface. A 30 gauge needle was used. Pharmaceutical Medication: 2 mg aflibercept syringe 2 mg/0.05 mL Route: intravitreal, Site: Left Eye [facility] [place]: [id number], Lot: [id number], Expiration date: 05/24/2025, Waste: 0 mL The [...] procedure. Notes Consented patient for BEAN OS 08/20/2024 Using sample (Eylea per RR) today 12/03/2024 Aj Bender MD OPHTH CLINIC PROCEDURES Fi nal Result * OCT, Retina - OU - Both Eyes (12/03/2024 1:57 PM CDT) Anatomical Region Laterality Modality Head Optical Coherenc e Tomography Narrative 12/03/2024 1:57 PM CDT Right Eye Quality was good. Scan locations included subfoveal. Progression has no prior data. Left Eye Quality was good. Scan locations included subfoveal. Progression has no prior data. Notes OD: no CME OS: CME+ Aj Bender MD OPHTH TOMOGRAPHY Final Res ult from Last 3 Months Insurance [facility] MEDICARE ADVANTAGE GENERIC [employer] ASSIST [facility] MEDICARE ADVANTAGE [facility] MEDICARE ADVANTAGE Care Teams Community Resource Consultant Relationship Specialty Start Date End Date Yasmine Caruso DO [address] [address] PCP - General Internal Medicine 04/13/21
--- OUTSIDE RECORDS SUMMARY | 2025-02-08 03:28 | XMS_ITS | Referral Summary ---
Author Organization [facility] Address [address] [place] [id number] Care Team Providers Care Seismograph Computer Name Role Phone Yasmine Caruso DO Primary Care Provider [phone] Encounters Date Type Department Care Team Description 02/04/2025 11:00 AM CDT Office Visit [facility] [address] [place] [address] 2nd Floor, [address] [place] [address] Aj Bender MD Central retinal vein occlusion with macular edema of left eye (HCC) (Primary Dx) 01/07/2025 9:45 AM CDT Office Visit [facility] [address] [place] [phone] Julio Nicolas MD SLK s/p sup conj resection OS (09/16/18) (Primary Dx); Filamentary keratitis of both eyes 12/24/2024 9:45 AM CDT Office Visit [facility] [address] [place] [phone] Julio Nicolas MD Filamentary keratitis of both eyes (Primary Dx); SLK s/p sup conj resection OS (09/16/18); OHT (ocular hypertension), bilateral 12/07/2024 9:00 AM CDT Imaging Exam [facility] [address] [place] [phone] OHT (ocular hypertension), bilateral 12/07/2024 8:50 AM CDT Imaging Exam [facility] [address] [place] [address] Outpatient Health [address] [place] [address] OHT (ocular hypertension), bilateral 12/07/2024 8:45 AM CDT Office Visit [facility] [address] [facility] 6th Floor, [address] [facility] [place] [address] Marisol Santos, OD OHT (ocular hypertension), bilateral (Primary Dx); Filamentary keratitis of both eyes; SLK s/p sup conj resection OS (09/16/18); Cataract OD / s/p CE/IOL OD (05/23/21) 12/03/2024 1:00 PM CDT Procedure visit [facility] [address] [facility] 2nd [facility], [address] [place] [address] Aj Bender MD Central retinal vein occlusion with macular edema of left eye (HCC) (Primary Dx) 11/16/2024 3:45 PM CDT Office Visit [facility] [address] [facility] 2nd Floor, [address] [place] [address] Julio Nicolas MD Superior limbic keratoconjunctivitis (Primary Dx) 11/11/2024 Telephone [facility] [address] [place] [address] Julio Nicolas MD worsening symptoms 11/08/2024 3:00 PM CDT Office Visit [facility] at [address] [phone] Yeu Jansen NP Blepharitis of left upper eyelid, unspecified type (Primary Dx) from Last 3 Months Allergies Active Allergy [...] 1 tablet (20 mg total) by mouth carport erector before breakfast 8 Active lisinopril (PRINIVIL,ZESTR IL) 40 mg tablet Take 1 tablet (40 mg total) by mouth carport erector before breakfast [address] (PROTONIX) 40 mg EC tabletIndicatio ns:Treatment of Non-Bleeding Gastric Disorder Take 1 tablet (40 mg total) by mouth nightly 8 Active multivitamin capsule Take 1 capsule by mouth carport erector before breakfast Active acetaminophen (TYLENOL) 500 mg [...] stable Assessment & Plan (07/05/2021 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 Increase LTX QID OS, continue BID OD Assessment & Plan (11/09/2020 2:13 PM CDT): OD >> OS Assessment & Plan (05/25/2019 9:34 AM CDT): OD 3+ SPK Add back prednisolone acetate OD q.i.d. P.r.n. s/p CE/PCIOL OS (05/19/19) 05/13/2019 Overview (05/13/2019): Added automatically from request for surgery [id number] Assessment & Plan (05/29/2021 9:25 AM CDT): stable Assessment & Plan (03/23/2020 3:44 PM CDT): Jostin, CTM Assessment & Plan (10/07/2019 9:45 AM LABORER [employer]ES): Jostin, CCM Assessment & Plan (06/24/2019 10:19 [...] OS Start Levobunolol 1gtt BID OS Follow-up: [facility] for post-op week 1 visit [...] Plan (05/07/2018 4:14 PM CDT): Please see GUI eval / tx Assessment & Plan (04/02/2018 [...] conjunctiva Assessment & Plan (10/07/2019 10:01 AM LABORER [employer]ES): Today with 4+ SPK superiorly OD, tr [...] mos Assessment & Plan (10/27/2018 9:13 AM LABORER [employer]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): No significant improvement on PF hydrocortisone, After [...] on file Legal Sex Female 7:44 AM [employer] Gender Identity Female 12/08/2020 10:17 AM CDT [...] on file Medical Devices Implanted Type Area Supervisor Detasseling Crew Device Identifier Shelf Expiration Date Model / Serial / Lot [employer] Sn60wf.210 Acrysof Iq Natural Stableforce Acrysert 6mm 13mm 1 Piece Foldable - [id number] - [id number] Implanted:Qty: 1 on 05/19/2019 by Juventino Carcamo MD at [facility] Lens Left: Eye [employer] [id number] 11/23/2023 SN60WF.21 0 / [id number] / 0 [employer] [id number].190 Acrysof Iq Natural Stableforce Acrysert 6mm 13mm 1 Piece Foldable - [id number] - [id number] Implanted:Qty: 1 on 05/23/2021 by Juventino Carcamo MD at [facility] Lens Right: Eye [employer] [id number] 11/25/2025 SN60WF.19 0 / [id number] / 0 Procedures Procedure Name Priority [...] 0.5%. The manufacture of the medication is yuback. Intravitreal Injection, Pharmacologic Agent Preparation included 5% betadine to ocular surface. A 30 gauge needle was used. Pharmaceutical Medication: 8 mg aflibercept syringe 8 mg/0.07 mL Route: intravitreal, Site: Left Eye [facility]: 08947-707-17, Lot: [id number], Expiration date: 07/24/2025, Waste: 0 mL Medication [...] Removal, Cornea - OD - Right Eye [id number] (12/07/2024 10:25 AM CDT) Anatomical Region Laterality Modality Head Other Narrative 12/07/2024 10:25 AM CDT OMIT - entered in error - EWELINA Marisol Santos OD OPHTH CLINIC PROCEDURES Ed ited Result [...] -2.60 dB. Pattern Deviation was 2.45 dB. Marisol Santos OPH VISUAL FIELD Final R esult * Foreign Body Removal, Cornea - OS - Left Eye [id number] (12/07/2024 8:45 AM CDT) Anatomical Region Laterality [...] Notes Multiple filaments removed with cotton swab Marisol Santos OPH CLINIC PROCEDURES Fi nal [...] 0.5%. The manufacture of the medication is Hosp[employer]. Intravitreal Injection, Pharmacologic Agent Preparation included 5% betadine to ocular surface. A 30 gauge needle was used. Pharmaceutical Medication: 2 mg aflibercept syringe 2 mg/0.05 mL Route: intravitreal, Site: Left Eye [facility]: 30127-546-74, Lot: [id number], Expiration date: 05/24/2025, Waste: 0 mL The [...] Res ult from Last 3 Months Insurance [facility] MEDICARE [facility]VANTAGE [facility] Address: [address] [address] [place] [address] GENERIC COPAY ASSIST [address] [phone] [facility] MEDICARE ADVANTAGE [facility] Address: [address] [address] [place] [address] [facility] MEDICARE ADVANTAGE [facility] Address: [address] [address] [place] [address] Care Teams Seismograph Computer Relationship Specialty Start Date End Date Yasmine Caruso DO [address] [address] PCP - General Internal Medicine 04/13/21
--- OUTSIDE RECORDS SUMMARY | 2025-02-08 03:28 | XMS_ITS | Clinical Summary ---
Author Organization [facility] Address [address] [address] Care Team Providers Care Freight Forwarder Name Role Phone Yasmine Caruso DO Primary Care Provider [phone] Allergies Active Allergy Reactions Criticality Noted Date Comments Shellfish Containing Products Unknown 2013 Medications lisinopriL (PRINIVIL) 20 mg tablet Take 20 mg by mouth daily. Active hydroCHLOROthiaz sathya 50 mg tablet Take 50 mg by mouth daily. Active escitalopram oxalate (LEXAPRO) 20 mg tablet Take 20 mg by mouth daily. Active Active Problems No known active problems Social History Tobacco Use Types Packs/Day Years [...] 3:54 PM CDT Height 162.6 cm (5' 4) 04/12/2021 3:54 PM CDT Body Mass Index [...] YEARS Completed 11/12/2021 INFLUENZA VACCINE Completed 05/27/[id number] [address] Care Teams Freight Forwarder Relationship Specialty Start Date End Date Yasmine Caruso DO [address] [place] [address] PCP - General 04/12/21
[2025-02-08] MEDS: ACETAMINOPHEN 500 MG TABLET 1000 MG PO (07:00)
[2025-02-08] MEDS: TRANEXAMIC ACID 1,000MG/ISO100 1,000 MG/100 ML BAG 200 MG IVPB (07:00)
[2025-02-08] MEDS: LACTATED RINGERS 1,000 ML 30 ML IV CONT ×2 (07:00→09:35)
--- NOTE | 2025-02-08 07:16 | WPDHPUPDATE1 ---
History and Physical Update Update Date/Time: 02/08/25 07:16 History and Physical has been reviewed, including an updated exam of the patient. There are NO changes in the patient's condition. Risks, benefits, and alternatives have been discussed and questions answered. Patient agrees to proceed with procedure.
--- NOTE | 2025-02-08 07:24 | P.PNAN_ITS ---
Anes - Initial Pre Proc Eval Procedure: Operation Date: 02/08/25 07:30 Proposed Procedures p Right Total Knee Arthroplasty - George De La Rosa MD Date/Time: 02/08/25 07:24 Surgeon: George De La Rosa MD Pre Op Diagnosis: Prim O A Rt Knee Patient Data Age: 74 Gender: F Height: 1.63 m Weight: 88.3 kg Last Vital Signs Temp 98.0 F 01/10/25 11:55 Pulse 68 01/10/25 11:55 Resp 18 01/10/25 11:55 BP 144/87 H 01/10/25 11:55 Pulse Ox 97 01/10/25 11:55 O2 Del Method Room Air 01/10/25 11:55 Allergies Allergy/AdvReac Type Severity Reaction Status Date / Time etodolac Allergy Hives Verified 01/10/25 11:11 Sulfa (Sulfonamide Allergy Rash Verified 01/10/25 11:11 Antibiotics) Home Medications ?Medication ?Instructions ?Recorded ?Confirmed ?Type ezetimibe 10 mg tablet 10 mg PO DIRECTED 07/24/22 01/10/25 History furosemide 20 mg tablet 40 mg PO DAILY 07/24/22 01/10/25 History latanoprost 0.005 % eye drops 1 drp EACH EYE HS 07/24/22 01/10/25 History lisinopril 40 mg tablet 40 mg PO DAILY 07/24/22 01/10/25 History loteprednol etabonate 0.5 % eye 1 drp EACH EYE DIRECTED 07/24/22 01/10/25 History gel drops pantoprazole 40 mg tablet,delayed 40 mg PO DIRECTED 07/24/22 01/10/25 History release acetaminophen 650 mg 650 mg PO PRN 01/10/25 01/10/25 History tablet,extended release (8 Hour Pain Reliever) artificial tears(hypromellose) 0.3 1 drp EACH EYE PRN 01/10/25 01/10/25 History % eye gel (Systane Gel) aspirin 81 mg capsule 81 mg PO DAILY 01/10/25 01/10/25 History flaxseed oil 1,000 mg capsule 1,000 mg PO BID 01/10/25 01/10/25 History ibuprofen 200 mg tablet (Advil) 200 mg PO PRN 01/10/25 01/10/25 History magnesium 250 mg tablet 250 mg PO DAILY 01/10/25 01/10/25 History metoprolol succinate 50 mg 50 mg PO DAILY 01/10/25 01/10/25 History tablet,extended release 24 hr moxifloxacin 0.5 % eye drops 1 drp LEFT EYE BID 01/10/25 01/10/25 History multivitamin (Daily Value tablet) 1 tablet PO DAILY 01/10/25 01/10/25 History potassium 99 mg tablet 99 mg PO DAILY 01/10/25 01/10/25 History timolol maleate 0.5 % eye drops 1 drp EACH EYE BID 01/10/25 01/10/25 History Laboratory Tests 02/08/25 06:46 Blood Type Pending Antibody Screen Pending Patient hx anesthesia problems: none Family hx anesthesia problems: none Results Review: All pre-operative results and documents have been reviewed as part of the pre- operative evaluation. 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) Myalgia Esophageal reflux Hypertension Hyperlipidemia Social History Social History Smoking status: Never smoker Do You Feel Safe in your Home?: Yes Lack of Transportation: No Lack of Food: Never True Current Housing: I Have Housing Concerned About Future Housing: No Difficulty Paying Gas/Electric Bills: No Difficulty Paying for Meds: No Currently Unemployed: No Education: Bachelor's Degree Difficulty w/ Childcare or Family Care: No Anes - Eval Final PreProcedure Day of Procedure 02/08/25 07:24 Patient weight: obese Heart: regular rate and rhythm Lungs: clear to auscultation Airway: Mallampati scale class II Neurological: alert and oriented Last oral intake: >/= 8 hours ASA classification: III Emergent: no Anesthetic plan: proceed Anesthesia type and monitoring: general LMA and standard monitoring Results Review: All pre-operative results and documents have been reviewed as part of the pre- operative evaluation. Informed Consent: The patient's anesthetic plan and its attendant risks and benefits were discussed with the patient/family/POA. Questions were solicited and answers provided to the satisfaction of the patient/family/POA.
[2025-02-08] MEDS: ceFAZolin 2 GM/D5W 50 ML 2 GM/50 ML BAG IVPB ×3 (07:35→22:58)
[2025-02-08] MEDS: SODIUM CHLORIDE 0.9% IV 38.7 ML, MORPHINE SULFATE INJ (*CRX) 2 MG, ROPivacaine HCL 1% 2... INFILTRATE (08:14)
[2025-02-08] MEDS: TRANEXAMIC ACID 1,000 MG/10 ML AMPUL 1000 MG IV PUSH (09:12)
[2025-02-08] MEDS: fentaNYL CITRATE INJ (*CRX) 100 MCG/2 ML VIAL 25 MCG IV PUSH ×8 (09:45→10:09)
[2025-02-08] MEDS: HYDROmorphone HCL INJ (*CRX) 1 MG/ML SYR 0.5 MG IV PUSH ×4 (10:16→11:01)
[2025-02-08] MEDS: polyethylene glycoL 3350 17 GM POWD.PACK PO (12:48)
[2025-02-08] MEDS: lisinopriL 20 MG TABLET 40 MG PO (12:48)
[2025-02-08] MEDS: ASPIRIN 81 MG ENTERIC TABLET PO ×2 (12:48→21:32)
[2025-02-08] MEDS: METOPROLOL SUCCINATE EXT REL 50 MG TABCR PO (12:49)
[2025-02-08] MEDS: ACETAMINOPHEN 325 MG TABLET 650 MG PO ×2 (12:49→17:08)
[2025-02-08] MEDS: SENNA/DOCUSATE SODIUM TABLET 2 TAB PO ×2 (12:49→17:07)
[2025-02-08] MEDS: FUROSEMIDE 40 MG TABLET PO (12:49)
[2025-02-08] MEDS: FAMOTIDINE 20 MG TABLET PO ×2 (12:49→21:32)
[2025-02-08] MEDS: SODIUM CHLORIDE 0.9% IV 1,000 ML 125 ML IV CONT (12:50)
[2025-02-08] MEDS: oxyCODONE/ACETAMINOPHEN (*CRX) 5-325 MG TABLET 1 TABLET PO ×2 (12:52→21:32)
--- NOTE | 2025-02-08 13:17 | ADMGEN ---
This patient, Sara Moody, was admitted to [address] [place] [address] Room 306-01. Patient/family oriented to hospital policies and general routines including ID bracelet, bed and alarms, visiting hours, pain management, procedures, bathroom and other care routines, personal items, smoking policy, room service/diet, and visiting hours. Information on how to activate the Rapid Response Team has been discussed. Patient/Family are encouraged to report perceived risks to care and to ask questions if they do not understand what they are told or what they should do.
--- NOTE | 2025-02-08 15:21 | P.OP_ITS ---
Procedure Note - Detailed Date of Procedure 02/08/25 Pre-op Diagnosis Right knee degenerative arthritis. Post-op Diagnosis Same Procedure Performed Calipered, kinematically aligned total knee replacement right knee. Surgeon George De La Rosa MD Anesthesia General Findings According to the calipered kinematic alignment principles, the knee was balanced by the following verification checks incorporating 6 caliper measurements, using an insert goniometer to select the insert thickness, and adjusting the tibial resection following the kinematic alignment algorithm (see figure 160.10 published in [employer] chapter on kinematic alignment total knee arthroplasty.) The steps verified the femoral and tibial components were kinematically aligned coincident to the patient's pre arthritic joint lines, which closely restored the [place] tibial compartment forces and ligament laxities without ligament release. The [employer] knee, designed specifically for kinematic alignment, fit optimally. Primary patellofemoral disease with severe dysplasia. The record of verification checks were documented and scanned into the chart. Distal Femoral Resection: Distal Medial 8 mm, Distal Lateral 8 mm Target thickness of 8mm Unworn, 6mm Worn (No Cartilage). Posterior Femoral Resection: Posterior Medial 7 mm, Posterior Lateral 7 mm. Target thickness of 7mm Unworn, 5mm Worn (No Cartilage). Description of Procedure General anesthesia was administered. A well-padded tourniquet was placed high on the thigh. The limb was prepped and draped in the usual sterile fashion. The limb was exsanguinated and the tourniquet inflated to 300 mmHg. A longitudinal incision was created over the midline of the knee. Sharp dissection was taken through subcutaneous tissues. Electrocautery was used for hemostasis. A trivector approach to the knee joint was performed. The ACL, anterior horns of the menisci, and fat pad were excised, and a subperiosteal dissection was carried along the posterior medial border of the tibia. Starting midway between the top of the notch in the anterior femoral cortex, I drilled a 9 mm diameter hole parallel to the anterior cortex to minimize flexion of the femoral component and promote patella tracking. I verified the existence of a 5-10 mm bone bridge between the posterior aspect of the hole and the anterior limit of the intercondylar notch. An intraosseous positioning luis carlos was inserted 10 cm into the femur perpendicular to the distal joint line and parallel to the anterior cortex. I used a distal femoral referencing guide that compensated 2 mm when the cartilage was worn on the distal medial femoral condyle, and 2 mm when the cartilage was worn on the distal lateral femoral condyle. The basis for setting the distal and posterior femoral resection guide is knowing that the varus and valgus grade II to IV Kellegren-Juan osteoarthritic knees have negligible bone wear at 0? and 90? and that the mean full-thickness cartilage wear approximates 2 mm. I measured the thickness of distal femoral resections with a caliper to +/- 0.5 mm. The thickness of each resection was adjusted to match the thickness of the respective condyle of the femoral component within 0.5 mm of target after compensating for cartilage wear and kerf. When the distal resection was 1-2 mm too thin, a recut guide was used to adjust the cut. When the distal resection was too thick, a 1 or 2 mm thick washer was fixed to the back of the 4-in-1 chamfer block to lynn a corrective gap between the femoral component and distal femur. I set posterior femoral referencing guide at 0? orientation to position the pin holes for the 4 in 1 chamfer block. The alex wing measured the width of the distal femoral resection and selected the size of the 4 in 1 chamfer block and femoral component. The AP sizer confirmed the size. I measured the thickness of the posterior femoral resections with a caliper before making the anterior and chamfer cuts. I adjusted the thicknesses of each resection to match the thickness of the respective condyle of the femoral component within +/-0.5 mm after compensating for cartilage wear and curve. When a posterior resection femoral resection was 1-2 mm too thick or thin a corrective correction was made by shifting or rotating the 4 in 1 chamfer block as needed. The chamfer block was secured in the correct position with compression screws. The anterior and chamfer femoral resections were made. These caliper measurements and corrections verified that the femoral component was set coincident with the patient's pre-arthritic distal and posterior femoral joint lines. I removed all the medial and lateral femoral and tibial osteophytes to restore the pre arthritic length of the medial and lateral collateral ligaments. I eran AP lines along the major axis of the lateral tibial plateau in between the tibial spines which identified the flexion extension plane of the knee. A conventional extramedullary tibial resection guide was applied to the ankle. An alex wing was placed medially in the saw slot. The varus valgus angle of the tibial resection guide was adjusted until the guide paralleled the proximal tibial articular surface after compensating for cartilage and bone wear. The slope of flexion extension angle of the tibial resection guide was adjusted until the alex wing paralleled the slope of the medial tibia after compensating for wear. The AP axis of the tibial resection guide was adjusted parallel to the two lines. The proximal tibia was resected, partially releasing the insertion of the posterior cruciate ligament. The thickness of the medial and lateral lateral tibial condyle was measured at the base of the tibial spines. I visually verified the slope of the medial border of the resection was parallel to the patient's pre arthritic slope after compensating for cartilage and bone wear. I removed the remnants of the posterior horns of the menisci and posterior osteophytes and cauterized the inferior lateral genicular vessels. The Aquamantys bipolar device was also used to for additional hemostasis. When the knee had a preoperative flexion contracture of 20? or more I teased the capsule off the posterior femur with a curved 3 quarter-inch osteotome. I administered the posterior femoral periosteal injection by delivering 10 cc using a 20 gauge spinal needle at the most medial and 10 cc at the most lateral femoral spur surface which reduced the risk of injury to the posterior neurovascular structures. I followed 6 options in a decision tree to fine tune the varus valgus and posterior slope orientation of the tibial component to restore the patient's pre arthritic tibial joint line and limb alignment. First, I adjusted the varus- valgus orientation of the proximal tibia resection working in 1 degree to 2 degree increments until there was negligible medial and lateral lift off of the distal femoral and proximal tibial resection from the spacer block during a varus valgus laxity assessment in extension. I selected the largest anatomic shape trial tibial base plate that fit within the cortical boundary of the proximal tibial resection. The base plate was best fit parallel to the cortical boundary which set the Internal-external orientation of the anterior to posterior and medial to lateral positions. The best fit method set the AP axis of the tibial base plate and insert parallel to the flexion extension plane of the pre arthritic knee. I pinned the trial tibial base plate, prepared the cruciate slot, and fixed the base plate to the tibia with the cruciate stem. I inserted the trial femoral component. The knee was placed in full extension. Varus valgus laxity is of the knee with trial components were assessed. When asymmetric laxity was observed a 1-2 degree varus or valgus recut guide was used to fine tune the tibial resection until the laxity was 1 degree or less in full extension like the [place] knee. The following steps determined the optimal insert thickness within +/-1 mm. First I inserted an insert goniometer that matched the thickness of the spacer block. I reduced the patella and then with the knee in maximum extension, I verified the knee hyperextended a few degrees and had negligible varus valgus laxity, like the pre arthritic knee. Next, I measured the external tibial orientation which was the angle the insert goniometer intersected the sagittal line on the medial condyle of the femoral trial component. Then with the knee in 15-30 degrees flexion I verified a 3-4 mm gap in the lateral compartment and no gap in the medial compartment during a 2nd varus valgus laxity test. Next, I placed the knee in 90? of flexion and the foot resting on the operating table and measured the internal tibial orientation. I repeated the steps until I identified the insert thickness that provided the highest external tibia orientation in extension and the highest internal tibial orientation at 90? flexion without anterior lift-off of the insert from the tibial base plate. The insert with this thickness was implanted. I applied a posterior drawer test with the tibia distracted by gravity and verified no posterior subluxation of the tibia relative to the femur. The thickness of the [place] patella was measured with a caliper. The patella was resected using the oscillating saw. The best fitting anatomic patella button was selected. The fixation holes were drilled. When the patella and patella buttons combined thickness was thicker than the [place] patella, the patella was recut. The patella remained centered on the trochlea and tracked well throughout the entire arc of flexion and extension. I used pulse lavage to clean the bony surfaces of debris and dried bone. I cemented the tibial, femoral, and patellar components using 1 bag of methylmethacrylate with Gentamycin, then rechecked the stability at full extension, 15-30 degrees, and 90? flexion and verified latter-day of the entire arc of motion of the knee. The circulating nurse confirmed the sponge and needle counts were correct. I used pulse lavage to rinse the joint and wound. The extensor mechanism was closed with interrupted #1 Vicryl suture and #1 running Stratafix suture. The subcutaneous layer was closed with interrupted #1 Vicryl suture followed by 2-0 Stratafix and 3-0 Stratafix. Steri-Strips placed on the skin. Silver impregnated occlusive dressing applied to the wound. A light gauze wrap and Magnus bandage were placed. The patient was transferred to the recovery room in stable condition. There were no complications. Implants Medacta GMK spheriKA Femoral component SpheriKA size 3, tibial component size 2, vitamin-E flex insert, thickness 11mm, Parvez patella implant size 1. Estimated Blood Loss 20 Drains No Pathology None sent Complications No immediate complications Condition Stable Disposition PACU [facility] Billing Surgery - Charge Forward: Surgery Billing
[2025-02-08] MEDS: predniSONE 5 MG TABLET PO (17:08)
[2025-02-08] MEDS: CYCLOBENZAPRINE HCL 10 MG TABLET PO (17:10)
[2025-02-08] MEDS: oxyCODONE/ACETAMINOPHEN (*CRX) 10-325 MG TABLET 1 TAB PO (17:11)
[2025-02-09 00:47] VITALS: BP 137/74; PULSE 71; RESP 18; TEMP 36.6; O2SAT 99
[2025-02-09] MEDS: oxyCODONE/ACETAMINOPHEN (*CRX) 10-325 MG TABLET 1 TAB PO ×2 (03:06→09:40)
[2025-02-09] MEDS: CYCLOBENZAPRINE HCL 10 MG TABLET PO (03:07)
[2025-02-09 04:47] VITALS: BP 146/58; PULSE 69; RESP 18; TEMP 36.1; O2SAT 99
[2025-02-09 06:05] LABS: Basophils Percent Auto 0.4 % (0.2-1.2); Eosinophils Percent Auto 0.2 % (0-4.4); Hematocrit 38.2 % (37.0-47.0); Hemoglobin 12.4 g/dL (12.0-15.0); Immature Granulocyte Absolute 0.02 K/mm3 (0.00-0.031); Immature Granulocyte Percent A 0.2 % (0-0.5); Lymphocytes Percent Auto 22.3 % (18.3-44.2); Mean Corpuscular HGB Conc 32.5 g/dl (32-36); Mean Corpuscular Hemoglobin 30.3 pg (26-34); Mean Corpuscular Volume 93.4 fl (80-100); Monocytes Absolute Auto 0.7 K/mm3 (0.1-0.6); Monocytes Percent Auto 7.3 % (2.6-8.5); Neutrophils Absolute Auto 6.9 K/mm3 (1.3-6.7); Neutrophils Percent Auto 69.6 % (45.5-73.1); Platelet Count Result 240 k/mm3 (150-375); Red Blood Count 4.09 M/mm3 (4.2-5.4); Red Cell Distribution Width 12.4 % (11.5-14.5); White Blood Count 9.9 K/mm3 (4.5-10.0)
[2025-02-09 06:16] LABS: Anion Gap 7 mmol/L (4-12); Blood Urea Nitrogen 14 mg/dL (7-17); Calcium 9.1 mg/dL (8.4-10.2); Carbon Dioxide 27 mmol/L (22-30); Chloride 103 mmol/L (98-107); Estimated CRCL calculation 54 ml/min; Estimated Glomerular Filt Rate > 60; Glucose 124 mg/dL (65-110); Potassium 4.3 mmol/L (3.4-5.0); Sodium 137 mmol/L (137-145)
[2025-02-09] MEDS: ceFAZolin 2 GM/D5W 50 ML 2 GM/50 ML BAG IVPB (06:22)
[2025-02-09] MEDS: ACETAMINOPHEN 325 MG TABLET 650 MG PO (06:22)
[2025-02-09] MEDS: polyethylene glycoL 3350 17 GM POWD.PACK PO (07:53)
[2025-02-09] MEDS: SENNA/DOCUSATE SODIUM TABLET 2 TAB PO (07:55)
[2025-02-09] MEDS: FAMOTIDINE 20 MG TABLET PO (07:56)
[2025-02-09 07:57] VITALS: PULSE 68
[2025-02-09] MEDS: METOPROLOL SUCCINATE EXT REL 50 MG TABCR PO (07:57)
[2025-02-09] MEDS: FUROSEMIDE 40 MG TABLET PO (07:58)
[2025-02-09] MEDS: ASPIRIN 81 MG ENTERIC TABLET PO (07:58)
[2025-02-09] MEDS: lisinopriL 20 MG TABLET 40 MG PO (07:59)
[2025-02-09] MEDS: oxyCODONE/ACETAMINOPHEN (*CRX) 5-325 MG TABLET 1 TABLET PO (07:59)
== END 2025-02-09 10:55 | disposition home or self-care (01) ==
LOC: ANHSURGERY 07:58 → ANH3MEDSUR 11:13
PROVIDERS: Physician Assistant Surgical; PCP Internal Medicine; Visit Provider Orthopaedic Surgery
PROC: (CPT 27447; principal; 2025-02-08 07:30)
DX: M17.11 Unilateral primary osteoarthritis, right knee (principal); M25.761 Osteophyte, right knee; E78.5 Hyperlipidemia, unspecified; I10 Essential (primary) hypertension; K21.9 Gastro-esophageal reflux disease without esophagitis; E66.9 Obesity, unspecified; Z68.33 Body mass index [BMI] 33.0-33.9, adult; Z79.82 Long term (current) use of aspirin; Z79.1 Long term (current) use of non-steroidal anti-inflammatories (NSAID); Z86.79 Personal history of other diseases of the circulatory system
CPT/HCPCS: 27447; 36415; 73560; 80048; 85025; 86850; 86900; 86901; 97110; 97116; 97161; 97165; 97530; 97535; C1776; A9270; C1713; J0171; J0690; J1100; J1171; J1200; J2003; J2270; J2405; J2704; J2795; J3010; J7030; J7120; J7512